=== PATIENT | female | born 1940 | race Caucasian/White ===

== ENCOUNTER 2016-04-15 08:00 | Outpatient (CLI) | payer MEDICARE, OTHER ==
[2016-04-15] VITALS (15 sets, daily range): BP systolic 120–173; BP diastolic 62–94
[~2016-04-15] VITALS: Ht 142.2 cm; Wt 54.4 kg
[~2016-04-15 08:00] MED LIST: ASCO10002 PO; ASCO100065 PO; CALC600T4 PO; CELE200C PO; CETI10CA PO; CETI10TA22 PO; CHOL100013 PO; CLON0.5T20 PO; CLON0.5T3 PO; CYCL10TA2 PO; ELDERBERRY PO; FENT1PAT21 TD; FLUT1DIS5 IH; GLUC1CAP14 PO; GREE1CAP PO; HERBAL ALOE; HYDR16TA PO; LECI518C PO; LUBI24CA5 PO; LYSI500T3 PO; MOME17SP NS; MULT1TAB52 PO; MULT9LIQ10 PO; NIAC50TA PO; OLAN2.5T5 PO; OLAN5TAB9 PO; OMEP40CA5 PO; ONDA4TAB7 PO; OXYC1TAB9 PO; OXYC30TA64 PO; POTA99TA PO; PRED2.5T PO; RALO60TA PO; RED600CA2 PO; ROFL500T PO; SENN8.6T60 PO; TIOT18CA IH; VALS1TAB6 PO; VITA150T PO; VITA400C36 PO; VITA80003 PO; [UNRECOGNIZED DRUG - CODE] MC; [UNRECOGNIZED DRUG - OTHER]
[2016-04-15 08:47] LABS: BASO # 0.1 x10^3/uL (0.0-0.2); BASO % 1 % (0-3); EOS % 0 % (0-3); HEMATOCRIT 34.1 % (36.0-47.0); HEMOGLOBIN 11.2 g/dL (12.0-15.5); LYMPH # 0.9 x10^3/uL (1.0-4.8); LYMPH % 8 % (24-48); MEAN CORPUSCULAR HEMOGLOBIN 25 pg (25-35); MEAN CORPUSCULAR HGB CONC 33 g/dL (31-37); MEAN CORPUSCULAR VOLUME 75 fL (79-100); MONO % 7 % (0-9); NEUT % 84 % (31-73); PLATELET COUNT 346 x10^3/uL (140-400); RED BLOOD COUNT 4.55 x10^6/uL (3.50-5.40); RED CELL DISTRIBUTION WIDTH 17.4 % (11.5-14.5); WHITE BLOOD COUNT 11.3 x10^3/uL (4.0-11.0)
[2016-04-15 08:59] LABS: INR 1.1 (0.8-1.1); PROTHROMBIN TIME PATIENT 13.7 SEC (11.7-14.0)
[2016-04-15] MEDS ORDERED: IPRATRPIUM/ALBUTEROL 0.5/2.5MG 3 ML NEBU. NEB ONE (09:15)
--- NOTE | 2016-04-15 09:41 | RAD ---
Portable AP view CXR: 0918 Clinical indications: Continuous cough. Comparison: November 21, 2014. Findings: Chronic bronchitis is seen which is stable. A granuloma of the right upper lobe is seen which is stable. No acute lung infiltrate or pleural effusion or pulmonary edema or lung mass or pneumothorax is seen. The heart size, pulmonary vasculature, mediastinum and both flip are unremarkable. T Impression: No acute radiographic abnormality is seen.
[2016-04-15] MEDS ORDERED: LIDOCAINE 1% / SOD BICARB 8.4% 20 ML VIAL. IJ ONE ×2 (09:57→11:30)
[2016-04-15] MEDS ORDERED: MIDAZOLAM HCL/PF 5 MG/5 ML VIAL ONE (10:24)
[2016-04-15] MEDS ORDERED: FENTANYL PF 250 MCG/5 ML VIAL. ONE (10:24)
[2016-04-15] MEDS ORDERED: MIDAZOLAM HCL/PF 5 MG/5 ML VIAL IV ONE (11:30)
[2016-04-15] MEDS ORDERED: FENTANYL PF 250 MCG/5 ML VIAL. IV ONE (11:30)
--- NOTE | 2016-04-15 12:30 | PDOC ---
MODERATE SEDATION ASSESSMENT RISKS/ALTERNATIVES Risks/Alternatives Risks and alternatives of this type of sedation and procedure discussed with: RISK/ALTERNATIVES: Patient H & P ON CHART H & P H & P on chart and reviewed for co-morbid conditions and appropriate labs. H&P ON CHART: Yes STATUS PREG STATUS ASSESSED: Yes MEDS/ALLERGIES REVIEWED Meds/Allergies Reviewed Medications and Allergies including time and route of recently administered narcotics and sedatives. MEDS/ALLERGIES REVIEWED: Yes ASA RATING ASA RATING: II AIRWAY ASSESSMENT Airway Assessment Airway patency, oral function limitations, presence of caps, crowns, dentures, partials, and ability to extend neck assessed. AIRWAY ASSESSMENT: Yes MALLAMPATI SCORE MALLAMPATI SCORE: II PRE-SEDATION ASSESSMENT PRE-SEDATION ASSESSMENT: Yes WILFRIDO MELARA MD Apr 15, 2016 12:30
--- NOTE | 2016-04-15 12:30 | PDOC ---
BRIEF OPERATIVE NOTE Pre-Op Diagnosis Bilateral sacral insufficiency fractures Post-Op Diagnosis same Procedure Performed Bilateral sacral vertebroplasty Surgeon Ruby Anesthesia Type: Conscious Sedation Findings Bilateral sacral vertebroplasty Complications No immediate WILFRIDO MELARA MD Apr 15, 2016 12:30
--- NOTE | 2016-04-15 12:31 | PDOC1 ---
History and Physical Date of Procedure Date of Admission History of Present Illness Reason for Visit Painful debilitating bilateral sacral insufficiency fractures Past Medical History Past Medical History see nursing pre-op assessment Current Medications Current Medications Current Medications Albuterol/ Ipratropium (Duoneb) 3 ml 1X ONCE NEB Last administered on 09:15; Start 04/15/16 at 09:15; Stop 04/15/16 at 09:16; Status DC Lidocaine/Sodium Bicarbonate 20 ml 20 ml STK-MED ONCE IJ ; Start 04/15/16 at 09: 57; Stop 04/15/16 at 09:58; Status DC Levofloxacin/ Dextrose (LEVAQUIN 500mg PREMIX) 100 ml @ As Directed STK-MED ONCE IV ; Start 04/15/16 at 10:24; Stop 04/15/16 at 10:25; Status DC Midazolam HCl (Versed) 5 mg STK-MED ONCE .ROUTE ; Start 04/15/16 at 10:24; Stop 04/15/16 at 10:25; Status DC Fentanyl Citrate (Fentanyl 5ml Vial) 250 mcg STK-MED ONCE .ROUTE ; Start at 10:24; Stop 04/15/16 at 10:25; Status DC Lidocaine/Sodium Bicarbonate (Buffered Lidocaine 1%) 20 ml 1X ONCE IJ Last administered on 04/15/16 11:24; Start 04/15/16 at 11:30; Stop 04/15/16 at 11:31 ; Status DC Midazolam HCl (Versed) 2 mg 1X ONCE IV Last administered on 04/15/16 11:24; Start 04/15/16 at 11:30; Stop 04/15/16 at 11:31; Status DC Fentanyl Citrate 150 mcg 150 mcg 1X ONCE IV Last administered on 04/15/16 11: 24; Start 04/15/16 at 11:30; Stop 04/15/16 at 11:31; Status DC Levofloxacin/ Dextrose (LEVAQUIN 500mg PREMIX) 100 ml @ 100 mls/hr 1X ONCE IV Last administered on 04/15/16 11:25; Start 04/15/16 at 11:30; Stop 04/15/16 at 12:29 Active Scripts Active Reported Oxycontin (Oxycodone HCl) 30 Mg Tab.er.12h 30 Mg PO BID Multivitamins (Multivitamin) 1 Each Tablet 1 Tab PO DAILY FENTANYL 100mcg/hr (Fentanyl) 1 Each Patch.td72 1 Patch TD Q72H Zofran (Ondansetron Hcl) 4 Mg Tablet 1 Tab PO Q8HRS Daliresp (Roflumilast) 500 Mcg Tablet 1 Tab PO DAILY Amitiza (Lubiprostone) 24 Mcg Capsule 1 Cap PO BID Oxycodone-Acetaminophen 10-325 (Oxycodone Hcl/Acetaminophen) 1 Each Tablet 1 Tab PO Q4HRS Cyclobenzaprine Hcl 10 Mg Tablet 1 Tab PO QHS Nasonex (Mometasone Furoate) 17 Gm Coffey.pump 2 Sprays NS DAILY Spiriva (Tiotropium Prospect) 18 Mcg Cap.w.dev 1 Cap IH DAILY Advair 500-50 Diskus (Fluticasone/Salmeterol) 1 Each Disk.w.dev 1 Puff IH BID Clonazepam 0.5 Mg Tablet 1 Tab PO DAILY Olanzapine 2.5 Mg Tablet 5 Mg PO DAILY Lecithin 518 Mg Capsule 400 Mg PO DAILY [Herbal Aloe] DAILY Prednisone 2.5 Mg Tablet 5 Mg PO DAILY Red Yeast Rice 600 Mg Capsule 600 Mg PO Glucosamine 1,500 Complex Cp (Gluc Chung/Chondro Chung A/Vit C/Mn) 1 Each Capsule 1 Each PO Super B Complex (Vitamin B Complex & Vit C No.4) 150 Mg Tablet 150 Mg PO Green Tea (Green Tea [place]ova Extract) 1 Each Capsule 1 Each PO Vitamin A 8,000 Unit Capsule 8,000 Unit PO Vitamin C (Ascorbic Acid) 1,000 Mg Tablet 1,000 Mg PO Vitamin E (Vitamin E Mixed) 400 Unit Capsule 400 Unit PO Vitamin D (Cholecalciferol (Vitamin D3)) 1,000 Unit Capsule 1,000 Unit PO Calcium (Calcium Carbonate) 600 Mg Tablet 1,200 Mg PO Lysine 500 Mg Tablet 500 Mg PO Vegetable Laxative (Sennosides) 8.6 Mg Tablet 8.6 Mg PO Celebrex (Celecoxib) 200 Mg Capsule 200 Mg PO DAILY Evista (Raloxifene Hcl) 60 Mg Tablet 60 Mg PO DAILY Diovan Hct 160-12.5 Mg Tab (Valsartan/Hydrochlorothiazide) 1 Each Tablet 1 Each PO Allergies Allergies: Coded Allergies: codeine (Verified Allergy, Intermediate, elevated hr, 05/29/15) penicillin (Verified Allergy, Intermediate, hives, 05/29/15) Physical Exam Vital Signs Vital Signs Date Time Temp Pulse Resp B/P Pulse Ox O2 Delivery O2 Flow Rate FiO2 04/15/16 11:24 14 95 Nasal Cannula 2.0 04/15/16 11:20 95 04/15/16 08:57 97.7 146/78 97.7 Assessment Assessment Bilateral sacral insufficiency fractures Problems: Plan Plan Bilateral sacroplasty WILFRIDO MELARA MD Apr 15, 2016 12:31
--- NOTE | 2016-04-15 17:48 | RAD ---
Procedure: CT-guided bilateral sacral vertebroplasty Clinical Indication: 75-year-old with debilitating bilateral sacral insufficiency fractures Sedation: Conscious sedation was administered for 38 minutes. The patient was monitored by a qualified independent observer throughout the time of sedation. Please refer to the medical record for exact doses of medications utilized to achieve moderate sedation. Antibiotics: Antibiotic was administered intravenously within 1 hour of the procedure start time. Sterility: The procedure was performed in its entirety using appropriate elements of sterile technique. Consent: The procedure was explained in its entirety to the patient or the patients designated lead generation representative by a member of the treatment team, including a discussion of the risks, benefits and commonly accepted alternatives to the procedure, as well as the expected consequences of no therapy whatsoever. Discussion of the risks included, but was not limited to, those that are most frequent and those that are rare but possibly severe or life-threatening, as well as the possibility of unforeseen complications. Technique and Findings: Following informed consent, the patient was prepped and draped in usual sterile fashion. Preliminary CT scan of the area of interest was performed. 1% lidocaine was used to achieve local anesthesia in 2 locations overlying the sacrum. Under periodic CT surveillance, an 11-gauge needle guide were advanced into both sacral alae, and polymethylmethacrylate was instilled throughout the interstices of these bones. Both needles were then removed and hemostasis was achieved with manual compression. Complications: No immediate Impression: 1. CT-guided bilateral sacral vertebroplasty as described PQRS Compliance Statement: One or more of the following individualized dose reduction techniques were utilized for this examination: 1. Automated exposure control 2. Adjustment of the mA and/or kV according to patient size 3. Use of iterative reconstruction technique
== END 2016-04-15 14:10 | disposition home or self-care (01) ==
LOC: INTRAD 08:00
PROVIDERS: ATTEND Family Medicine
DX: M84.48XA Pathological fracture, other site, initial encounter for fracture (principal); J42 Unspecified chronic bronchitis; E03.9 Hypothyroidism, unspecified; I10 Essential (primary) hypertension; J44.9 Chronic obstructive pulmonary disease, unspecified; J45.909 Unspecified asthma, uncomplicated; E66.9 Obesity, unspecified; M19.90 Unspecified osteoarthritis, unspecified site; F17.200 Nicotine dependence, unspecified, uncomplicated
CPT/HCPCS: 22511; 36415; 71010; 85027; 85610; 94640; C1758; C1892; J1956; J2250; J3010; J7620

== ENCOUNTER 2016-04-20 00:18 | Emergency (ER) | payer MEDICARE, OTHER ==
[~2016-04-20] VITALS: Ht 142.2 cm; Wt 54.4 kg
[2016-04-20] MEDS ORDERED: ONDANSETRON ODT 4 MG TAB.RAPDIS PO ONE (01:15)
[2016-04-20] MEDS ORDERED: HYDROMORPHONE 2 MG/ML VIAL. IM ONE ×2 (01:15→03:00)
[2016-04-20 02:45] VITALS: BP 143/68
--- NOTE | 2016-04-20 02:59 | PHYS DOC ---
Past Medical History Past Medical History: Asthma, GERD, Hypertension, Other Additional Past Medical Histor: CHRONIC BACK PAIN, Past Surgical History: Cholecystectomy, Other Additional Past Surgical Histo: BREAST SURGERY,HERNIA SURGERY,BACK SURGERY, FOOT SURGERY Alcohol Use: None Drug Use: None Adult General Chief Complaint Chief Complaint: BACK PAIN - NO INJURY HPI HPI Patient is a 75 year old female who presents here today complaining of lower back pain. Patient reports that she had kyphoplasty on Monday secondary to a sacral bone fracture. Patient reports last week she fell down and hurt her back and has had sacral/coccyx pain since. Patient reports that she has had chronic pain for a long time and she is on oxycodone as well as OxyContin to help her pain. Patient reports that she was doing well since the surgery and she was walking around. Patient thinks that she might have overdone it today and walked around too much. Patient reports that she went to sleep and then wasn't able to get up out of bed and walk around secondary to severe pain and spasms. Patient denies any other symptomatology. Patient has any fevers shaking chills nausea vomiting diarrhea. Patient denies any loss of bowel or bladder function. Patient denies any weakness to her upper or lower extremities. Patient denies any paresthesias to her. No region. Patient is requesting that we Sr. with pain here. Patient is requesting that she not be admitted to the hospital and wants us to assist with control of her pain so that she can resume with her outpatient pain regimen. Patient is requesting no fentanyl secondary to it really killing her in the past". Patient's physical exam was significant for tenderness to palpation to her lower back and her coccyx and sacral region. Patient has severe pain with rolling over in bed. Patient's motor exam is 5 out of 5 upper and lower extremity. Patient's sensation in the perineal area as well as to her lower 70s and oriented. A/P this is a 75-year-old female who presents to the ER today secondary to an acute exacerbation of her chronic pain. Patient was given Dilaudid 2 mg IM with significant improvement in her discomfort. After the IM shot patient was able to ambulate. Patient still appeared to be in some discomfort. I discussed with the patient I think she would benefit from being admitted to the hospital to assist her with her pain. The patient and her are both declining admission at this time. They prefer that we help control her pain here in the ER and they are requesting that she be discharged home. I discussed with the family that I would try and ambulate her first before we discharge her to home. The nurse did get the patient up and she has been able to ambulate in the ER with a moderate amount of discomfort. I discussed this with the patient and she feel that she is comfortable enough and stable enough to be discharged home to that she can resume her usual pain meds. Patient is hoping that if we can control her pain that her home remedies will continue to work as they have been for. I discussed with the patient that I will go ahead and discharge her and encouraged her to return to the ER if she has worsening pain or she is not able to tolerate the discomfort that she has or she is unable to actively. I will go ahead and give the patient another 2 mg of IM Dilaudid before she is discharged to assist her until she gets home. reports that she has 13 since that she will have to go up and he can manage helping her go up as long as she can walk a little bit. Review of Systems Review of Systems Constitutional: Denies fever or chills [] Eyes: Denies change in visual acuity, redness, or eye pain [] All other review systems are negative except as documented in history of present illness portion. Current Medications Current Medications Current Medications Medications (Trade) Dose Ordered Sig/Sandy Start Time Stop Time Status Last Admin Dose Admin Hydromorphone HCl (Dilaudid) 2 mg 1X ONCE 04/20/16 03:00 04/20/16 03:01 04/20/16 02:50 2 MG Ondansetron HCl (Zofran Odt) 4 mg 1X ONCE 04/20/16 01:15 04/20/16 01:16 DC 04/20/16 01:03 4 MG Allergies Allergies Allergies Coded Allergies Type Severity Reaction Last Updated Verified codeine Allergy Intermediate elevated hr 05/29/15 Yes penicillin Allergy Intermediate hives 05/29/15 Yes Physical Exam Physical Exam Constitutional: Well developed, well nourished, no acute distress, non-toxic appearance. [] HENT: Normocephalic, atraumatic, bilateral external ears normal, oropharynx moist, no oral exudates, nose normal. [] Eyes: PERRLA, EOMI, conjunctiva normal, no discharge. [] Neck: Normal range of motion, no tenderness, supple, no stridor. [] Cardiovascular:Heart rate regular rhythm, no murmur [] Lungs & Thorax: Bilateral breath sounds clear to auscultation [] Abdomen: Bowel sounds normal, soft, no tenderness, no masses, no pulsatile masses. [] Skin: Warm, dry, no erythema, no rash. [] Back: No tenderness, no CVA tenderness. [] Extremities: No tenderness, no cyanosis, no clubbing, ROM intact, no edema. [] Neurologic: Alert and oriented X 3, normal motor function, normal sensory function, no focal deficits noted. [] Psychologic: Affect normal, judgement normal, mood normal. [] Positive tenderness to palpation back. Please see above for exam of her back. Current Patient Data Vital Signs Vital Signs Date Time Temp Pulse Resp B/P Pulse Ox O2 Delivery O2 Flow Rate FiO2 04/20/16 00:25 98.0 85 22 169/77 93 Room Air 98.0 EKG EKG [] Radiology/Procedures Radiology/Procedures [] Course & Med Decision Making Course & Med Decision Making Pertinent Labs and Imaging studies reviewed. (See chart for details) [] Chronic lower back pain. This is a 75-year-old female who presents to the ER today with acute exacerbation of her chronic back pain. Patient recently had kyphoplasty done secondary to fracture to her coccyx region. Patient has been given appropriate and adequate analgesia in the ER and is requesting to be discharged home and try to manage with her outpatient regimen. Patient is neurovascularly intact. Dragon Disclaimer Dragon Disclaimer This electronic medical record was generated, in whole or in part, using a voice recognition dictation system. Departure Departure Impression: Primary Impression: Chronic back pain Additional Impression: Acute low back pain Disposition: 01 HOME, SELF-CARE Condition: IMPROVED Referrals: LOBO SMITH MD (PCP) Patient Instructions: Chronic Back Pain, Low Back Sprain with [facility] Additional Instructions: Please follow-up with your doctor in the morning to help you with her chronic pain. Please return to the ER if her pain worsens or if he have any further problems or concerns. Problem Qualifiers CARMELITA DUDLEY MD Apr 20, 2016 02:59
== END 2016-04-20 03:05 | disposition home or self-care (01) ==
LOC: ER 00:18
DX: G89.29 Other chronic pain (principal); M54.5 Low back pain; J45.909 Unspecified asthma, uncomplicated; I10 Essential (primary) hypertension; Z88.0 Allergy status to penicillin; Z88.5 Allergy status to narcotic agent
CPT/HCPCS: 96372; 99284; J1170; Q0162

== ENCOUNTER 2016-09-20 17:18 | Inpatient (IN) | payer MEDICARE, OTHER ==
[~2016-09-20] VITALS: Ht 142.2 cm; Wt 48.5 kg
[~2016-09-20 17:18] MED LIST changes: -GLUC1CAP14 PO; +GLUCOSAMINE 1,1 EACH PO; -LUBI24CA5 PO; +LUBI24CA7 PO; -NIAC50TA PO; +NIAC50TA3 PO; -ROFL500T PO; +ROFL500T7 PO; -SENN8.6T60 PO; +SENN8.6T61 PO; -VALS1TAB6 PO; +VALS1TAB8 PO
[2016-09-20 19:45] VITALS: BP 186/92
[2016-09-20] MEDS ORDERED: IPRA4AER IH (20:20)
[2016-09-20] MEDS ORDERED: CETI10TA16 PO (20:20)
[2016-09-20] MEDS ORDERED: AZEL137S3 NS (20:20)
[2016-09-20] MEDS ORDERED: ALBU2.5V5 NEB (20:20)
[2016-09-20] MEDS ORDERED: CELE200C PO (20:20)
[2016-09-20] MEDS ORDERED: ALOE25CA PO (20:20)
[2016-09-20] MEDS ORDERED: POTASSIUM BICARB PO (20:20)
[2016-09-20] MEDS ORDERED: GLUC1TAB33 PO (20:20)
[2016-09-20] MEDS ORDERED: OMEP40CA5 PO (20:20)
[2016-09-20] MEDS ORDERED: ONDANSETRON PF 4 MG/2 ML VIAL. IV PRN (21:15)
[2016-09-20] MEDS ORDERED: ACETAMINOPHEN 325 MG TABLET. PO PRN (21:15)
[2016-09-20] MEDS: IV NORMAL SALINE 1000ML BAG 1,000 ML IV SCH (22:00)
[2016-09-20] MEDS ORDERED: levOFLOXacin PER PHARMACY. MC PRN (22:15)
[2016-09-20] MEDS: oxyCODONE/APAP 10/325 1 TAB TABLET PO SCH (22:16)
[2016-09-20 23:03] VITALS: BP 175/90
[2016-09-21] MEDS ORDERED: oxyCODONE/APAP 10/325 1 TAB TABLET PO SCH
[2016-09-21] MEDS: oxyCODONE/APAP 10/325 1 TAB TABLET PO SCH ×5 (03:36→21:22)
[2016-09-21 03:42] VITALS: BP 154/75
[2016-09-21 05:23] LABS: BILIRUBIN,URINE NEGATIVE (NEG); GLUCOSE,URINE NEGATIVE (NEG); NITRITE,URINE NEGATIVE (NEG); PH,URINE 7.5; PROTEIN,URINE NEGATIVE (NEG-TRACE); UROBILINOGEN,URINE 0.2 mg/dL (0.2 mg/dL)
[2016-09-21 05:29] LABS: BACTERIA,URINE 0 /HPF (0-FEW); RBC,URINE 0 /HPF (0-2); SQUAMOUS EPITHELIAL CELL,UR FEW /LPF; WBC,URINE 0 /HPF (0-4)
[2016-09-21 05:47] LABS: ALBUMIN 2.9 g/dL (3.4-5.0); CALCIUM 8.9 mg/dL (8.5-10.1); CREATININE 0.7 mg/dL (0.6-1.0); TOTAL BILIRUBIN 0.4 mg/dL (0.2-1.0); TOTAL PROTEIN 5.9 g/dL (6.4-8.2)
[2016-09-21 05:57] LABS: POTASSIUM 2.6 mmol/L (3.5-5.1)
[2016-09-21 05:59] LABS: BASO % 1 % (0-3); EOS % 1 % (0-3); HEMATOCRIT 30.8 % (36.0-47.0); HEMOGLOBIN 10.2 g/dL (12.0-15.5); LYMPH # 1.4 x10^3/uL (1.0-4.8); LYMPH % 14 % (24-48); MEAN CORPUSCULAR HEMOGLOBIN 26 pg (25-35); MEAN CORPUSCULAR HGB CONC 33 g/dL (31-37); MEAN CORPUSCULAR VOLUME 77 fL (79-100); MONO % 8 % (0-9); NEUT % 77 % (31-73); PLATELET COUNT 289 x10^3/uL (140-400); RED BLOOD COUNT 4.02 x10^6/uL (3.50-5.40); WHITE BLOOD COUNT 10.1 x10^3/uL (4.0-11.0)
[2016-09-21] MEDS: oxyCODONE ER 15 MG TAB.ER.12H PO SCH ×2 (06:12→17:48)
[2016-09-21] MEDS: POTASSIUM CHLORIDE 10MEQ 100 ML IV SCH ×4 (06:38→10:37)
[2016-09-21 07:00] VITALS: BP 156/75
[2016-09-21] MEDS: IV NORMAL SALINE 1000ML BAG 1,000 ML IV SCH ×2 (08:07→22:52)
[2016-09-21] MEDS ORDERED: POTASSIUM CHLORIDE 10MEQ 100 ML IV SCH (09:00)
[2016-09-21] MEDS ORDERED: NON FORMULARY ITEM (Tiotropium Bromide (Spiriva) 1 CAP) IH SCH (09:00)
[2016-09-21] MEDS: IPRATRPIUM/ALBUTEROL 0.5/2.5MG 3 ML NEBU. NEB SCH ×4 (09:00→19:23)
[2016-09-21] MEDS ORDERED: oxyCODONE ER 15 MG TAB.ER.12H PO SCH (09:00)
[2016-09-21] MEDS ORDERED: NON FORMULARY ITEM (Fluticasone/Salmeterol (Advair 500-50 Diskus) 1 PUFF) IH SCH (09:00)
[2016-09-21] MEDS: BUDESONIDE 0.5 MG/2 ML NEBU. NEB SCH ×2 (09:00→19:24)
[2016-09-21] MEDS: CETIRIZINE HCL 10 MG TABLET. PO SCH (09:51)
[2016-09-21] MEDS: fentaNYL 100MCG/HR PATCH 1 PATCH PATCH TD SCH (09:51)
[2016-09-21] MEDS: SENNOSIDES 8.6 MG TABLET PO SCH (09:52)
[2016-09-21] MEDS: CYCLOBENZAPRINE 10 MG TABLET. PO SCH ×3 (09:52→21:22)
[2016-09-21] MEDS: PANTOPRAZOLE 40 MG TABLET.DR. PO SCH (09:52)
--- NOTE | 2016-09-21 09:52 | RAD ---
Indication: Pneumonia. Time of exam 0859 hours. Correlation is made with prior chest from 04/15/2016. The heart size is stable. There is a granuloma right upper lobe which is stable when compared with prior study. No infiltrates are detected. No effusion or pneumothorax is seen. Impression: Stable chest. No acute cardiopulmonary process is detected.
[2016-09-21] MEDS: clonazePAM 0.5 MG TABLET PO SCH (09:53)
[2016-09-21] MEDS: OLANZapine 2.5 MG TABLET PO SCH (09:53)
[2016-09-21] MEDS: ROFLUMILAST 500 MCG TABLET. PO SCH (09:53)
[2016-09-21] MEDS ORDERED: ALBUTEROL SULFATE 2.5 MG/3 ML NEBU. NEB PRN (10:00)
[2016-09-21 10:58] VITALS: BP 138/69
[2016-09-21] MEDS ORDERED: SODIUM CHLORIDE 3 % 500 ML IV ONE (12:00)
[2016-09-21] MEDS ORDERED: IPRATRPIUM/ALBUTEROL 0.5/2.5MG 3 ML NEBU. NEB SCH ×2 (12:00)
--- NOTE | 2016-09-21 12:14 | PDOC2 ---
CONSULT Date of Consult Date of Consult DATE: 09/21/16 TIME: 12:06 Reason for Consult Reason for Consult: LOW NA Referring Physician Referring Physician: PREETHI Identification/Chief Complaint Chief Complaint SOB AND WEAKNESS Problems: Source Source: Chart review, Patient History of Present Illness Reason for Visit: THIS IS A 75 YR OLD ADMITTED WITH SOB AND SOME WEAKNESS. SHE HAS BEEN FEELING WOBBLY AND UNSTEADY. NO HEADACHES OR OTHER SYMPTOMS GIVEN. VISION IS OK. NA IS 122. OLD RECORDS SHOWED NA OF 131 DURING LAST HOSPITAL VISIT HERE. DOES NOT APPEAR TO HAVE HAD THIS WORKED UP. SHE HAS BEEN ON DIOVAN/HCTZ. NO EXCESSIVE THIRST OR WATER INTAKE. NO POLYURIA. SHE IS NOT ON ANY DIURETICS. SHE HAS A HX OF ASTHMA WITH EXACERBATIONS Past Medical History Cardiovascular: HTN Pulmonary: COPD GI: Diverticulosis Heme/Onc: Anemia NOS Hepatobiliary: Cholelithiasis Psych: No pertinent hx Musculoskeletal: Weakness Endocrine: Other Past Surgical History Past Surgical History: No pertinent history Family History Family History: No Significant Social History ALCOHOL: rare Drugs: None Current Medications Current Medications Current Medications Oxycodone/ Acetaminophen (Percocet 10/325) 1 tab Q4HRS PO ; Start 09/21/16 at 00 :00; Stop 09/21/16 at 00:00; Status DC Oxycodone HCl (OxyCONTIN) 30 mg Q12HR PO ; Start 09/21/16 at 09:00; Stop at 09:00; Status DC Sodium Chloride 1,000 ml @ 60 mls/hr [id number] IV Last administered on t 08:07; Start 09/20/16 at 21:10 Ondansetron HCl (Zofran) 4 mg PRN Q6HRS PRN IV NAUSEA/VOMITING; Start 09/20/16 at 21:15 Acetaminophen (Tylenol) 650 mg PRN Q6HRS PRN PO FEVER; Start 09/20/16 at 21:15 Ceftriaxone Sodium 1 gm/ Sodium Chloride 50 ml @ 100 mls/hr Q24H IV ; Start at 21:15; Status UNV Oxycodone HCl (OxyCONTIN) 30 mg [id number] PO Last administered on 09/21/16t 06:12; Start 09/21/16 at 06:30 Oxycodone/ Acetaminophen (Percocet 10/325) 1 tab Q4HRS PO Last administered on 09/21/16 11:57; Start 09/20/16 at 22:30 Levofloxacin/ Dextrose (Levaquin Per Pharmacy) 1 each PRN DAILY PRN MC SEE COMMENTS; Start 09/20/16 at 22:15 Levofloxacin/ Dextrose 100 ml @ 100 mls/hr 1X ONCE IV Last administered on 00:24; Start 09/20/16 at 23:00; Stop 09/20/16 at 23:59; Status DC Levofloxacin/ Dextrose 50 ml @ 50 mls/hr Q24H IV ; Start 09/21/16 at 23:00 Potassium Chloride 100 ml @ 100 mls/hr Q1H IV Last administered on 09/21/16 10:37; Start 09/21/16 at 07:00; Stop 09/21/16 at 10:59; Status DC Potassium Chloride 100 ml @ 100 mls/hr Q1H IV ; Start 09/21/16 at 09:00; Stop 09/21/16 at 12:59; Status Cancel Cetirizine HCl (ZyrTEC) 10 mg DAILY PO Last administered on 09/21/16 09:51; Start 09/21/16 at 09:30 Clonazepam (KlonoPIN) 0.5 mg DAILY PO Last administered on 09/21/16 09:53; Start 09/21/16 at 09:30 Cyclobenzaprine HCl (Flexeril) 10 mg TID PO Last administered on 09/21/16 09: 52; Start 09/21/16 at 09:30 Fentanyl (Duragesic 100mcg/Hr Patch) 1 patch Q72H TD Last administered on 09:51; Start 09/21/16 at 09:30 Olanzapine (ZyPREXA) 5 mg DAILY PO Last administered on 09/21/16 09:53; Start 09/21/16 at 09:30 Roflumilast (Daliresp) 500 mcg DAILY PO Last administered on 09/21/16 09:53; Start 09/21/16 at 09:30 Sennosides (Senna) 8.6 mg DAILY PO Last administered on 09/21/16 09:52; Start 09/21/16 at 09:30 Non-Formulary Medication 1 puff BID IH ; Start 09/21/16 at 09:00; Status UNV Pantoprazole Sodium (Protonix) 40 mg DAILYAC PO Last administered on 09/21/16 09:52; Start 09/21/16 at 09:30 Non-Formulary Medication 1 cap DAILY IH ; Start 09/21/16 at 09:00; Status UNV Albuterol/ Ipratropium (Duoneb) 3 ml RTQID NEB Last administered on 09/21/16 11:17; Start 09/21/16 at 09:30 Albuterol/ Ipratropium (Duoneb) 3 ml RTQID NEB ; Start 09/21/16 at 12:00; Status UNV Budesonide (Pulmicort) 0.5 mg RTBID NEB Last administered on 09/21/16 09:00; Start 09/21/16 at 09:30 Albuterol/ Ipratropium (Duoneb) 3 ml RTQID NEB ; Start 09/21/16 at 12:00; Status Cancel Albuterol Sulfate (Ventolin Neb Soln) 2.5 mg PRN Q2HR PRN NEB SHORTNESS OF BREATH; Start 09/21/16 at 10:00 Guaifenesin (Mucinex) 600 mg BID PO Last administered on 09/21/16 11:56; Start 09/21/16 at 11:00 Sodium Chloride 500 ml @ 30 mls/hr 1X ONCE IV ; Start 09/21/16 at 12:00; Stop 09/22/16 at 04:39 Active Scripts Active Reported Albuterol Sulfate Neb Soln (Albuterol Sulfate) 2.5 Mg/3 Ml Vial.neb 2.5 Mg NEB Q6HRS Combivent Respimat Inhal (Ipratropium/Albuterol Sulfate) 4 Gm Aer.w.adap 2 Inh IH QID Glucosamine Chondroitin Tab (Gluc Chung/Chondro Chung A/Vit C/Mn) 1 Each Tablet 1 Each PO Aloe Vera 25 Mg Capsule 25 Mg PO BID [potassium bicarb] 600 Intlu PO Azelastine Hcl 137 Mcg/0.137 Ml Royal.pump 2 Royal NS BID Cetirizine Hcl 10 Mg Tablet 1 Tab PO DAILY Omeprazole 40 Mg Capsule.dr 1 Cap PO DAILY Celebrex (Celecoxib) 200 Mg Capsule 200 Mg PO BID 30 Days Oxycontin (Oxycodone HCl) 30 Mg Tab.er.12h 30 Mg PO BID Multivitamins (Multivitamin) 1 Each Tablet 1 Tab PO DAILY FENTANYL 100mcg/hr (Fentanyl) 1 Each Patch.td72 1 Patch TD Q72H Daliresp (Roflumilast) 500 Mcg Tablet 1 Tab PO DAILY Amitiza (Lubiprostone) 24 Mcg Capsule 1 Cap PO BID Oxycodone-Acetaminophen 10-325 (Oxycodone Hcl/Acetaminophen) 1 Each Tablet 1 Tab PO Q4HRS Cyclobenzaprine Hcl 10 Mg Tablet 1 Tab PO TID Nasonex (Mometasone Furoate) 17 Gm Royal.pump 2 Sprays NS DAILY Spiriva (Tiotropium [place]) 18 Mcg Cap.w.dev 1 Cap IH DAILY Advair 500-50 Diskus (Fluticasone/Salmeterol) 1 Each Disk.w.dev 1 Puff IH BID Clonazepam 0.5 Mg Tablet 1 Tab PO DAILY Olanzapine 2.5 Mg Tablet 5 Mg PO DAILY Prednisone 2.5 Mg Tablet 5 Mg PO DAILY Super B Complex (Vitamin B Complex & Vit C No.4) 150 Mg Tablet 150 Mg PO Green Tea (Green Tea [place] Extract) 1 Each Capsule 1 Each PO BID Vitamin A 8,000 Unit Capsule 8,000 Unit PO Vitamin C (Ascorbic Acid) 1,000 Mg Tablet 1,000 Mg PO Vitamin E (Vitamin E Mixed) 400 Unit Capsule 400 Unit PO Vitamin D (Cholecalciferol (Vitamin D3)) 1,000 Unit Capsule 1,000 Unit PO Calcium (Calcium Carbonate) 600 Mg Tablet 1,200 Mg PO Vegetable Laxative (Sennosides) 8.6 Mg Tablet 8.6 Mg PO Evista (Raloxifene Hcl) 60 Mg Tablet 60 Mg PO DAILY Diovan Hct 160-12.5 Mg Tab (Valsartan/Hydrochlorothiazide) 1 Each Tablet 1 Each PO Allergies Allergies: Coded Allergies: penicillin (Verified Allergy, Severe, hives, 09/20/16) anaphylactic codeine (Verified Allergy, Intermediate, elevated hr, 05/29/15) ROS General: YES: Fatigue, Malaise, Appetite PSYCHOLOGICAL ROS: YES: Anxiety Eyes: Yes Decreased vision HEENT: YES: Heacaches Respiratory: YES: Cough, Shortness of breath Gastrointestinal: Yes Constipation Genitourinary: YES Incontinence Musculoskeletal: Yes Muscular Weakness Neurological: Yes Weakness Physical Exam General: Alert, Oriented X3, Cooperative, No acute distress HEENT: Atraumatic, PERRLA Lungs: Clear to auscultation Heart: Regular rate, Normal S1, Normal S2 Abdomen: Normal bowel sounds, No tenderness Extremities: No clubbing Neuro: Normal speech, Cranial nerves 3-12 NL Psych/Mental Status: Mental status NL, Mood NL MUSCULOSKELETAL: No deformity, No swelling Vitals VITALS Vital Signs Date Time Temp Pulse Resp B/P (MAP) Pulse Ox O2 Delivery O2 Flow Rate FiO2 09/21/16 11:57 18 Room Air 09/21/16 11:17 98 09/21/16 10:58 98.0 87 138/69 (92) 98.0 Labs Labs Laboratory Tests Test 09/21/16 00:03 09/21/16 00:20 09/21/16 03:00 Magnesium Level 1.8 mg/dL (1.8-2.4) Urine Collection Type Unknown Urine Color Yellow Urine Clarity Clear Urine pH 7.5 Urine Specific [place] <=1.005 Urine Protein Negative mg/dL (NEG-TRACE) Urine Glucose (UA) Negative mg/dL (NEG) Urine Ketones (Stick) Negative mg/dL (NEG) Urine Blood Negative (NEG) Urine Nitrite Negative (NEG) Urine Bilirubin Negative (NEG) Urine Urobilinogen Dipstick 0.2 mg/dL (0.2 mg/dL) Urine Leukocyte Esterase Negative (NEG) Urine RBC 0 /HPF (0-2) Urine WBC 0 /HPF (0-4) Urine Squamous Epithelial Cells Few /LPF Urine Transitional Epithelial Cells Occ /LPF Urine Bacteria 0 /HPF (0-FEW) White Blood Count 10.1 x10^3/uL (4.0-11.0) Red Blood Count 4.02 x10^6/uL (3.50-5.40) Hemoglobin 10.2 g/dL (12.0-15.5) Hematocrit 30.8 % (36.0-47.0) Mean Corpuscular Volume 77 fL (79-100) Mean Corpuscular Hemoglobin 26 pg (25-35) Mean Corpuscular Hemoglobin Concent 33 g/dL (31-37) Red Cell Distribution Width 16.0 % (11.5-14.5) Platelet Count 289 x10^3/uL (140-400) Neutrophils (%) (Auto) 77 % (31-73) Lymphocytes (%) (Auto) 14 % (24-48) Monocytes (%) (Auto) 8 % (0-9) Eosinophils (%) (Auto) 1 % (0-3) Basophils (%) (Auto) 1 % (0-3) Neutrophils # (Auto) 7.7 x10^3uL (1.8-7.7) Lymphocytes # (Auto) 1.4 x10^3/uL (1.0-4.8) Monocytes # (Auto) 0.8 x10^3/uL (0.0-1.1) Eosinophils # (Auto) 0.1 x10^3/uL (0.0-0.7) Basophils # (Auto) 0.0 x10^3/uL (0.0-0.2) Sodium Level 122 mmol/L (136-145) Potassium Level 2.6 mmol/L (3.5-5.1) Chloride Level 86 mmol/L (98-107) Carbon Dioxide Level 26 mmol/L (21-32) Anion Gap 10 (6-14) Blood Urea Nitrogen 12 mg/dL (7-20) Creatinine 0.7 mg/dL (0.6-1.0) Estimated GFR (Cockcroft-Gault) 82.0 BUN/Creatinine Ratio 17 (6-20) Glucose Level 102 mg/dL (70-99) Calcium Level 8.9 mg/dL (8.5-10.1) Total Bilirubin 0.4 mg/dL (0.2-1.0) Aspartate Amino Transf (AST/SGOT) 21 U/L (15-37) Alanine Aminotransferase (ALT/SGPT) 21 U/L (14-59) Alkaline Phosphatase 73 U/L (46-116) FG-Own-O-Type Natriuretic Peptide 1312 pg/mL (0-124) Total Protein 5.9 g/dL (6.4-8.2) Albumin 2.9 g/dL (3.4-5.0) Albumin/Globulin Ratio 1.0 (1.0-1.7) Laboratory Tests Test 09/21/16 00:03 09/21/16 00:20 09/21/16 03:00 Magnesium Level 1.8 mg/dL (1.8-2.4) Urine Collection Type Unknown Urine Color Yellow Urine Clarity Clear Urine pH 7.5 Urine Specific [place] <=1.005 Urine Protein Negative mg/dL (NEG-TRACE) Urine Glucose (UA) Negative mg/dL (NEG) Urine Ketones (Stick) Negative mg/dL (NEG) Urine Blood Negative (NEG) Urine Nitrite Negative (NEG) Urine Bilirubin Negative (NEG) Urine Urobilinogen Dipstick 0.2 mg/dL (0.2 mg/dL) Urine Leukocyte Esterase Negative (NEG) Urine RBC 0 /HPF (0-2) Urine WBC 0 /HPF (0-4) Urine Squamous Epithelial Cells Few /LPF Urine Transitional Epithelial Cells Occ /LPF Urine Bacteria 0 /HPF (0-FEW) White Blood Count 10.1 x10^3/uL (4.0-11.0) Red Blood Count 4.02 x10^6/uL (3.50-5.40) Hemoglobin 10.2 g/dL (12.0-15.5) Hematocrit 30.8 % (36.0-47.0) Mean Corpuscular Volume 77 fL (79-100) Mean Corpuscular Hemoglobin 26 pg (25-35) Mean Corpuscular Hemoglobin Concent 33 g/dL (31-37) Red Cell Distribution Width 16.0 % (11.5-14.5) Platelet Count 289 x10^3/uL (140-400) Neutrophils (%) (Auto) 77 % (31-73) Lymphocytes (%) (Auto) 14 % (24-48) Monocytes (%) (Auto) 8 % (0-9) Eosinophils (%) (Auto) 1 % (0-3) Basophils (%) (Auto) 1 % (0-3) Neutrophils # (Auto) 7.7 x10^3uL (1.8-7.7) Lymphocytes # (Auto) 1.4 x10^3/uL (1.0-4.8) Monocytes # (Auto) 0.8 x10^3/uL (0.0-1.1) Eosinophils # (Auto) 0.1 x10^3/uL (0.0-0.7) Basophils # (Auto) 0.0 x10^3/uL (0.0-0.2) Sodium Level 122 mmol/L (136-145) Potassium Level 2.6 mmol/L (3.5-5.1) Chloride Level 86 mmol/L (98-107) Carbon Dioxide Level 26 mmol/L (21-32) Anion Gap 10 (6-14) Blood Urea Nitrogen 12 mg/dL (7-20) Creatinine 0.7 mg/dL (0.6-1.0) Estimated GFR (Cockcroft-Gault) 82.0 BUN/Creatinine Ratio 17 (6-20) Glucose Level 102 mg/dL (70-99) Calcium Level 8.9 mg/dL (8.5-10.1) Total Bilirubin 0.4 mg/dL (0.2-1.0) Aspartate Amino Transf (AST/SGOT) 21 U/L (15-37) Alanine Aminotransferase (ALT/SGPT) 21 U/L (14-59) Alkaline Phosphatase 73 U/L (46-116) DR-Yeh-N-Type Natriuretic Peptide 1312 pg/mL (0-124) Total Protein 5.9 g/dL (6.4-8.2) Albumin 2.9 g/dL (3.4-5.0) Albumin/Globulin Ratio 1.0 (1.0-1.7) Assessment/Plan Assessment/Plan IMP SEVERE HYPONATREMIA-SYMPTOMATIC ASTHMA WITH MILD ACUTE EXACERBATION PROB BRONCHITIS/URI PLAN STOP HER HCTZ URINE OSMO URINE LYTES CHECK TSH LOW FLOW 3% SALINE DECREASE ISOTONIC SALINE INFUSION WILL REPEAT NA LEVEL AFTER HYPERTONIC INFUSION UPDATED YESENIA RADFORD MD Sep 21, 2016 12:14
--- NOTE | 2016-09-21 12:36 | PDOC1 ---
History and Physical Date of Admission Date of Admission 09/21/16 Identification/Chief Complaint Chief Complaint cough, difficulty to urinate, weakness Problems: Source Source: Chart review, Patient History of Present Illness History of Present Illness 75yo F, with htn, copd, h/o hyponatremia, hypokalemia, was sent from [facility] for weakness. both pt and her PCP could not give me a good history. basically, Pt has been coughing for 1-2 weeks, but denies gets worse for her baseline with copd, denies fever, chills, but admits has some clear sputum. was treated with levaquin x5ds, no improvement. She also has difficulty to urinate, no incontinence. She feels weak, but said using salt for cooking, denies dehydration. she cannot tell me what is the etiology of previous hyponatremia and hypokalemia which is found in the clinic test and PCP didnot tell me that before transfer. Past Medical History Cardiovascular: HTN Pulmonary: COPD GI: Diverticulosis Heme/Onc: Anemia NOS Hepatobiliary: Cholelithiasis Psych: No pertinent hx Endocrine: Other Past Surgical History Past Surgical History: No pertinent history Family History Family History: Hypertension Social History Smoke: Quit ALCOHOL: occassional Drugs: None Current Medications Current Medications Current Medications Medications (Trade) Dose Ordered Sig/Sandy Start Time Stop Time Status Last Admin Dose Admin Acetaminophen (Tylenol) 650 mg PRN Q6HRS PRN 09/20/16 21:15 Albuterol Sulfate (Ventolin Neb Soln) 2.5 mg PRN Q2HR PRN 09/21/16 10:00 Albuterol/ Ipratropium (Duoneb) 3 ml RTQID 09/21/16 12:00 Cancel Budesonide (Pulmicort) 0.5 mg RTBID 09/21/16 09:30 09/21/16 09:00 0.5 MG Ceftriaxone Sodium 1 gm/ Sodium Chloride 50 ml @ 100 mls/hr Q24H 09/20/16 21:15 UNV Cetirizine HCl (ZyrTEC) 10 mg DAILY 09/21/16 09:30 09/21/16 09:51 10 MG Clonazepam (KlonoPIN) 0.5 mg DAILY 09/21/16 09:30 09/21/16 09:53 0.5 MG Cyclobenzaprine HCl (Flexeril) 10 mg TID 09/21/16 09:30 09/21/16 09:52 10 MG Fentanyl (Duragesic 100mcg/Hr Patch) 1 patch Q72H 09/21/16 09:30 09/21/16 09:51 1 PATCH Guaifenesin (Mucinex) 600 mg BID 09/21/16 11:00 09/21/16 11:56 600 MG Levofloxacin/ Dextrose 50 ml @ 50 mls/hr Q24H 09/21/16 23:00 Levofloxacin/ Dextrose (Levaquin Per Pharmacy) 1 each PRN DAILY PRN 09/20/16 22:15 Non-Formulary Medication 1 cap DAILY 09/21/16 09:00 UNV Olanzapine (ZyPREXA) 5 mg DAILY 09/21/16 09:30 09/21/16 09:53 5 MG Ondansetron HCl (Zofran) 4 mg PRN Q6HRS PRN 09/20/16 21:15 Oxycodone HCl (OxyCONTIN) 30 mg [id number] 09/21/16 06:30 09/21/16 06:12 30 MG Oxycodone/ Acetaminophen (Percocet 10/325) 1 tab Q4HRS 09/20/16 22:30 09/21/16 11:57 1 TAB Pantoprazole Sodium (Protonix) 40 mg DAILYAC 09/21/16 09:30 09/21/16 09:52 40 MG Potassium Chloride 100 ml @ 100 mls/hr Q1H 09/21/16 09:00 09/21/16 12:59 Cancel Roflumilast (Daliresp) 500 mcg DAILY 09/21/16 09:30 09/21/16 09:53 500 MCG Sennosides (Senna) 8.6 mg DAILY 09/21/16 09:30 09/21/16 09:52 8.6 MG Sodium Chloride 500 ml @ 30 mls/hr 1X ONCE 09/21/16 12:00 09/22/16 04:39 Allergies Allergies Allergies Coded Allergies Type Severity Reaction Last Updated Verified penicillin Allergy Severe hives 09/20/16 Yes codeine Allergy Intermediate elevated hr 316 Yes ROS Review of System CONSTITUTIONAL: No fever or chills EYES: No recent changes SKIN: No rash or itching CARDIOVASCULAR: No chest pain, syncope, palpitations, or edema RESPIRATORY: No SOB or cough GASTROINTESTINAL: No nausea, vomiting or abdominal pain NEUROLOGICAL: No headaches or weakness ENDOCRINE: No cold or heat intolerance GENITOURINARY: No urgency or frequency of urination MUSCULOSKELETAL: No back pain or joint pain LYMPHATICS: No enlarged lymph nodes PSYCHIATRIC: No anxiety or depression Physical Exam Physical Exam GEN.: No apparent distress. Alert and oriented. very hard hearing to communicate. HEENT: Head is normocephalic, atraumatic NECK: Supple. LUNGS: bl coarse bs. HEART: RRR, S1, S2 present. Peripheral pulses intact ABDOMEN: Soft, nontender. Positive bowel sounds. EXTREMITIES: Without any cyanosis. NEUROLOGIC: Normal speech, normal tone PSYCHIATRIC: Normal affect, normal mood. SKIN: No ulcerations Vitals Vitals Vital Signs Date Time Temp Pulse Resp B/P (MAP) Pulse Ox O2 Delivery O2 Flow Rate FiO2 09/21/16 11:57 18 Room Air 09/21/16 11:17 98 09/21/16 10:58 98.0 87 138/69 (92) 98.0 Labs Labs Laboratory Tests Test 09/21/16 00:03 09/21/16 00:20 09/21/16 03:00 Magnesium Level 1.8 mg/dL (1.8-2.4) Urine Collection Type Unknown Urine Color Yellow Urine Clarity Clear Urine pH 7.5 Urine Specific [place] <=1.005 Urine Protein Negative mg/dL (NEG-TRACE) Urine Glucose (UA) Negative mg/dL (NEG) Urine Ketones (Stick) Negative mg/dL (NEG) Urine Blood Negative (NEG) Urine Nitrite Negative (NEG) Urine Bilirubin Negative (NEG) Urine Urobilinogen Dipstick 0.2 mg/dL (0.2 mg/dL) Urine Leukocyte Esterase Negative (NEG) Urine RBC 0 /HPF (0-2) Urine WBC 0 /HPF (0-4) Urine Squamous Epithelial Cells Few /LPF Urine Transitional Epithelial Cells Occ /LPF Urine Bacteria 0 /HPF (0-FEW) White Blood Count 10.1 x10^3/uL (4.0-11.0) Red Blood Count 4.02 x10^6/uL (3.50-5.40) Hemoglobin 10.2 g/dL (12.0-15.5) Hematocrit 30.8 % (36.0-47.0) Mean Corpuscular Volume 77 fL (79-100) Mean Corpuscular Hemoglobin 26 pg (25-35) Mean Corpuscular Hemoglobin Concent 33 g/dL (31-37) Red Cell Distribution Width 16.0 % (11.5-14.5) Platelet Count 289 x10^3/uL (140-400) Neutrophils (%) (Auto) 77 % (31-73) Lymphocytes (%) (Auto) 14 % (24-48) Monocytes (%) (Auto) 8 % (0-9) Eosinophils (%) (Auto) 1 % (0-3) Basophils (%) (Auto) 1 % (0-3) Neutrophils # (Auto) 7.7 x10^3uL (1.8-7.7) Lymphocytes # (Auto) 1.4 x10^3/uL (1.0-4.8) Monocytes # (Auto) 0.8 x10^3/uL (0.0-1.1) Eosinophils # (Auto) 0.1 x10^3/uL (0.0-0.7) Basophils # (Auto) 0.0 x10^3/uL (0.0-0.2) Sodium Level 122 mmol/L (136-145) Potassium Level 2.6 mmol/L (3.5-5.1) Chloride Level 86 mmol/L (98-107) Carbon Dioxide Level 26 mmol/L (21-32) Anion Gap 10 (6-14) Blood Urea Nitrogen 12 mg/dL (7-20) Creatinine 0.7 mg/dL (0.6-1.0) Estimated GFR (Cockcroft-Gault) 82.0 BUN/Creatinine Ratio 17 (6-20) Glucose Level 102 mg/dL (70-99) Calcium Level 8.9 mg/dL (8.5-10.1) Total Bilirubin 0.4 mg/dL (0.2-1.0) Aspartate Amino Transf (AST/SGOT) 21 U/L (15-37) Alanine Aminotransferase (ALT/SGPT) 21 U/L (14-59) Alkaline Phosphatase 73 U/L (46-116) KA-Kfh-D-Type Natriuretic Peptide 1312 pg/mL (0-124) Total Protein 5.9 g/dL (6.4-8.2) Albumin 2.9 g/dL (3.4-5.0) Albumin/Globulin Ratio 1.0 (1.0-1.7) Laboratory Tests Test 09/21/16 00:03 09/21/16 00:20 09/21/16 03:00 Magnesium Level 1.8 mg/dL (1.8-2.4) Urine Collection Type Unknown Urine Color Yellow Urine Clarity Clear Urine pH 7.5 Urine Specific [place] <=1.005 Urine Protein Negative mg/dL (NEG-TRACE) Urine Glucose (UA) Negative mg/dL (NEG) Urine Ketones (Stick) Negative mg/dL (NEG) Urine Blood Negative (NEG) Urine Nitrite Negative (NEG) Urine Bilirubin Negative (NEG) Urine Urobilinogen Dipstick 0.2 mg/dL (0.2 mg/dL) Urine Leukocyte Esterase Negative (NEG) Urine RBC 0 /HPF (0-2) Urine WBC 0 /HPF (0-4) Urine Squamous Epithelial Cells Few /LPF Urine Transitional Epithelial Cells Occ /LPF Urine Bacteria 0 /HPF (0-FEW) White Blood Count 10.1 x10^3/uL (4.0-11.0) Red Blood Count 4.02 x10^6/uL (3.50-5.40) Hemoglobin 10.2 g/dL (12.0-15.5) Hematocrit 30.8 % (36.0-47.0) Mean Corpuscular Volume 77 fL (79-100) Mean Corpuscular Hemoglobin 26 pg (25-35) Mean Corpuscular Hemoglobin Concent 33 g/dL (31-37) Red Cell Distribution Width 16.0 % (11.5-14.5) Platelet Count 289 x10^3/uL (140-400) Neutrophils (%) (Auto) 77 % (31-73) Lymphocytes (%) (Auto) 14 % (24-48) Monocytes (%) (Auto) 8 % (0-9) Eosinophils (%) (Auto) 1 % (0-3) Basophils (%) (Auto) 1 % (0-3) Neutrophils # (Auto) 7.7 x10^3uL (1.8-7.7) Lymphocytes # (Auto) 1.4 x10^3/uL (1.0-4.8) Monocytes # (Auto) 0.8 x10^3/uL (0.0-1.1) Eosinophils # (Auto) 0.1 x10^3/uL (0.0-0.7) Basophils # (Auto) 0.0 x10^3/uL (0.0-0.2) Sodium Level 122 mmol/L (136-145) Potassium Level 2.6 mmol/L (3.5-5.1) Chloride Level 86 mmol/L (98-107) Carbon Dioxide Level 26 mmol/L (21-32) Anion Gap 10 (6-14) Blood Urea Nitrogen 12 mg/dL (7-20) Creatinine 0.7 mg/dL (0.6-1.0) Estimated GFR (Cockcroft-Gault) 82.0 BUN/Creatinine Ratio 17 (6-20) Glucose Level 102 mg/dL (70-99) Calcium Level 8.9 mg/dL (8.5-10.1) Total Bilirubin 0.4 mg/dL (0.2-1.0) Aspartate Amino Transf (AST/SGOT) 21 U/L (15-37) Alanine Aminotransferase (ALT/SGPT) 21 U/L (14-59) Alkaline Phosphatase 73 U/L (46-116) XR-Ajd-Q-Type Natriuretic Peptide 1312 pg/mL (0-124) Total Protein 5.9 g/dL (6.4-8.2) Albumin 2.9 g/dL (3.4-5.0) Albumin/Globulin Ratio 1.0 (1.0-1.7) VTE Prophylaxis Ordered VTE Prophylaxis Devices: Yes VTE Pharmacological Prophylaxi: Yes Assessment/Plan Assessment/Plan 1. 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 hypokalemia 3. bronchitis 4. copd 5. urination difficulty 6. htn 7. chronic constipation 8, normacytic anemia 2/2 chronic dz 9.; mild malnutrition plan: renal, pulm, uro consult hold htn meds add cough meds, duoneb CXR replete Na, K. as per renal, will give one time 3% saline, then cont NS asked nurse to do bladder scan cont some home meds PTOT DVT ppx check tsh, cortisol level. also osmolality ,urine lytes as per renal. admit >2nights ROMANA ORO MD Sep 21, 2016 12:36
--- NOTE | 2016-09-21 12:43 | PDOC2 ---
CONSULT Date of Consult Date of Consult DATE: 09/21/16 TIME: 12:34 Reason for Consult Reason for Consult: dyspnea Identification/Chief Complaint Chief Complaint cough/Dyspnea Problems: History of Present Illness Reason for Visit: THIS IS A 75 YR OLD ADMITTED WITH SOB AND SOME WEAKNESS. SHE HAS BEEN FEELING WOBBLY AND UNSTEADY. NO HEADACHES OR OTHER SYMPTOMS GIVEN. VISION IS OK. NA IS 122. OLD RECORDS SHOWED NA OF 131 DURING LAST HOSPITAL VISIT HERE. DOES NOT APPEAR TO HAVE HAD THIS WORKED UP. SHE HAS BEEN ON DIOVAN/HCTZ. NO EXCESSIVE THIRST OR WATER INTAKE. NO POLYURIA. SHE IS NOT ON ANY DIURETICS. SHE HAS A HX OF ASTHMA/ LONG H/O SMOKING. SHE HAS A CHRONIC COUGH FOR 25 PLUS YEARS , USUALLY NOCTURNAL WITH RECENT WORSENING. RAISED IN A FARM. HAS H/O FIBROSIS. CXR C/W PERSISTENT MILD INTERSTITIAL INFILTRATES Past Medical History Cardiovascular: HTN Pulmonary: Asthma, COPD, Other GI: Diverticulosis Heme/Onc: Anemia NOS Hepatobiliary: Cholelithiasis Psych: No pertinent hx Musculoskeletal: Weakness Endocrine: Other Past Surgical History Past Surgical History: No pertinent history Family History Family History: No Significant Social History # pack years (25) ALCOHOL: rare Drugs: None Current Medications Current Medications Current Medications Oxycodone/ Acetaminophen (Percocet 10/325) 1 tab Q4HRS PO ; Start 09/21/16 at 00 :00; Stop 09/21/16 at 00:00; Status DC Oxycodone HCl (OxyCONTIN) 30 mg Q12HR PO ; Start 09/21/16 at 09:00; Stop at 09:00; Status DC Sodium Chloride 1,000 ml @ 60 mls/hr [id number] IV Last administered on t 08:07; Start 09/20/16 at 21:10 Ondansetron HCl (Zofran) 4 mg PRN Q6HRS PRN IV NAUSEA/VOMITING; Start 09/20/16 at 21:15 Acetaminophen (Tylenol) 650 mg PRN Q6HRS PRN PO FEVER; Start 09/20/16 at 21:15 Ceftriaxone Sodium 1 gm/ Sodium Chloride 50 ml @ 100 mls/hr Q24H IV ; Start at 21:15; Status UNV Oxycodone HCl (OxyCONTIN) 30 mg [id number] PO Last administered on 09/21/16 06:12; Start 09/21/16 at 06:30 Oxycodone/ Acetaminophen (Percocet 10/325) 1 tab Q4HRS PO Last administered on 09/21/16 11:57; Start 09/20/16 at 22:30 Levofloxacin/ Dextrose (Levaquin Per Pharmacy) 1 each PRN DAILY PRN MC SEE COMMENTS; Start 09/20/16 at 22:15 Levofloxacin/ Dextrose 100 ml @ 100 mls/hr 1X ONCE IV Last administered on 00:24; Start 09/20/16 at 23:00; Stop 09/20/16 at 23:59; Status DC Levofloxacin/ Dextrose 50 ml @ 50 mls/hr Q24H IV ; Start 09/21/16 at 23:00 Potassium Chloride 100 ml @ 100 mls/hr Q1H IV Last administered on 09/21/16 10:37; Start 09/21/16 at 07:00; Stop 09/21/16 at 10:59; Status DC Potassium Chloride 100 ml @ 100 mls/hr Q1H IV ; Start 09/21/16 at 09:00; Stop 09/21/16 at 12:59; Status Cancel Cetirizine HCl (ZyrTEC) 10 mg DAILY PO Last administered on 09/21/16 09:51; Start 09/21/16 at 09:30 Clonazepam (KlonoPIN) 0.5 mg DAILY PO Last administered on 09/21/16 09:53; Start 09/21/16 at 09:30 Cyclobenzaprine HCl (Flexeril) 10 mg TID PO Last administered on 09/21/16 09: 52; Start 09/21/16 at 09:30 Fentanyl (Duragesic 100mcg/Hr Patch) 1 patch Q72H TD Last administered on 09:51; Start 09/21/16 at 09:30 Olanzapine (ZyPREXA) 5 mg DAILY PO Last administered on 09/21/16 09:53; Start 09/21/16 at 09:30 Roflumilast (Daliresp) 500 mcg DAILY PO Last administered on 09/21/16 09:53; Start 09/21/16 at 09:30 Sennosides (Senna) 8.6 mg DAILY PO Last administered on 09/21/16 09:52; Start 09/21/16 at 09:30 Non-Formulary Medication 1 puff BID IH ; Start 09/21/16 at 09:00; Status UNV Pantoprazole Sodium (Protonix) 40 mg DAILYAC PO Last administered on 09/21/16 09:52; Start 09/21/16 at 09:30 Non-Formulary Medication 1 cap DAILY IH ; Start 09/21/16 at 09:00; Status UNV Albuterol/ Ipratropium (Duoneb) 3 ml RTQID NEB Last administered on 09/21/16 11:17; Start 09/21/16 at 09:30 Albuterol/ Ipratropium (Duoneb) 3 ml RTQID NEB ; Start 09/21/16 at 12:00; Status UNV Budesonide (Pulmicort) 0.5 mg RTBID NEB Last administered on 09/21/16 09:00; Start 09/21/16 at 09:30 Albuterol/ Ipratropium (Duoneb) 3 ml RTQID NEB ; Start 09/21/16 at 12:00; Status Cancel Albuterol Sulfate (Ventolin Neb Soln) 2.5 mg PRN Q2HR PRN NEB SHORTNESS OF BREATH; Start 09/21/16 at 10:00 Guaifenesin (Mucinex) 600 mg BID PO Last administered on 09/21/16 11:56; Start 09/21/16 at 11:00 Sodium Chloride 500 ml @ 30 mls/hr 1X ONCE IV ; Start 09/21/16 at 12:00; Stop 09/22/16 at 04:39 Enoxaparin Sodium (Lovenox 40mg Syringe) 40 mg Q24H SQ ; Start 09/21/16 at 16:00 Active Scripts Active Reported Albuterol Sulfate Neb Soln (Albuterol Sulfate) 2.5 Mg/3 Ml Vial.neb 2.5 Mg NEB Q6HRS Combivent Respimat Inhal (Ipratropium/Albuterol Sulfate) 4 Gm Aer.w.adap 2 Inh IH QID Glucosamine Chondroitin Tab (Gluc Chung/Chondro Chung A/Vit C/Mn) 1 Each Tablet 1 Each PO Aloe Vera 25 Mg Capsule 25 Mg PO BID [potassium bicarb] 600 Intlu PO Azelastine Hcl 137 Mcg/0.137 Ml [place].pump 2 [place] NS BID Cetirizine Hcl 10 Mg Tablet 1 Tab PO DAILY Omeprazole 40 Mg Capsule.dr 1 Cap PO DAILY Celebrex (Celecoxib) 200 Mg Capsule 200 Mg PO BID 30 Days Oxycontin (Oxycodone HCl) 30 Mg Tab.er.12h 30 Mg PO BID Multivitamins (Multivitamin) 1 Each Tablet 1 Tab PO DAILY FENTANYL 100mcg/hr (Fentanyl) 1 Each Patch.td72 1 Patch TD Q72H Daliresp (Roflumilast) 500 Mcg Tablet 1 Tab PO DAILY Amitiza (Lubiprostone) 24 Mcg Capsule 1 Cap PO BID Oxycodone-Acetaminophen 10-325 (Oxycodone Hcl/Acetaminophen) 1 Each Tablet 1 Tab PO Q4HRS Cyclobenzaprine Hcl 10 Mg Tablet 1 Tab PO TID Nasonex (Mometasone Furoate) 17 Gm [place].pump 2 Sprays NS DAILY Spiriva (Tiotropium [place]) 18 Mcg Cap.w.dev 1 Cap IH DAILY Advair 500-50 Diskus (Fluticasone/Salmeterol) 1 Each Disk.w.dev 1 Puff IH BID Clonazepam 0.5 Mg Tablet 1 Tab PO DAILY Olanzapine 2.5 Mg Tablet 5 Mg PO DAILY Prednisone 2.5 Mg Tablet 5 Mg PO DAILY Super B Complex (Vitamin B Complex & Vit C No.4) 150 Mg Tablet 150 Mg PO Green Tea (Green Tea [place] Extract) 1 Each Capsule 1 Each PO BID Vitamin A 8,000 Unit Capsule 8,000 Unit PO Vitamin C (Ascorbic Acid) 1,000 Mg Tablet 1,000 Mg PO Vitamin E (Vitamin E Mixed) 400 Unit Capsule 400 Unit PO Vitamin D (Cholecalciferol (Vitamin D3)) 1,000 Unit Capsule 1,000 Unit PO Calcium (Calcium Carbonate) 600 Mg Tablet 1,200 Mg PO Vegetable Laxative (Sennosides) 8.6 Mg Tablet 8.6 Mg PO Evista (Raloxifene Hcl) 60 Mg Tablet 60 Mg PO DAILY Diovan Hct 160-12.5 Mg Tab (Valsartan/Hydrochlorothiazide) 1 Each Tablet 1 Each PO Allergies Allergies: Coded Allergies: penicillin (Verified Allergy, Severe, hives, 09/20/16) anaphylactic codeine (Verified Allergy, Intermediate, elevated hr, 05/29/15) ROS Respiratory: YES: Cough, Shortness of breath, Tachypnea Skin: Yes Dry Skin Physical Exam General: Alert, Oriented X3, No acute distress HEENT: Mucous membr. moist/pink Lungs: Other (few rhonchi) Heart: Regular rate, Normal S1, No murmurs Abdomen: Normal bowel sounds, Soft Extremities: No clubbing, No cyanosis, No edema, Normal pulses Skin: No rashes, No breakdown Neuro: Normal gait Psych/Mental Status: Mental status NL MUSCULOSKELETAL: No joint tenderness Vitals VITALS Vital Signs Date Time Temp Pulse Resp B/P (MAP) Pulse Ox O2 Delivery O2 Flow Rate FiO2 09/21/16 11:57 18 Room Air 09/21/16 11:17 98 09/21/16 10:58 98.0 87 138/69 (92) 98.0 Labs Labs Laboratory Tests Test 09/21/16 00:03 09/21/16 00:20 09/21/16 03:00 Magnesium Level 1.8 mg/dL (1.8-2.4) Urine Collection Type Unknown Urine Color Yellow Urine Clarity Clear Urine pH 7.5 Urine Specific [place] <=1.005 Urine Protein Negative mg/dL (NEG-TRACE) Urine Glucose (UA) Negative mg/dL (NEG) Urine Ketones (Stick) Negative mg/dL (NEG) Urine Blood Negative (NEG) Urine Nitrite Negative (NEG) Urine Bilirubin Negative (NEG) Urine Urobilinogen Dipstick 0.2 mg/dL (0.2 mg/dL) Urine Leukocyte Esterase Negative (NEG) Urine RBC 0 /HPF (0-2) Urine WBC 0 /HPF (0-4) Urine Squamous Epithelial Cells Few /LPF Urine Transitional Epithelial Cells Occ /LPF Urine Bacteria 0 /HPF (0-FEW) White Blood Count 10.1 x10^3/uL (4.0-11.0) Red Blood Count 4.02 x10^6/uL (3.50-5.40) Hemoglobin 10.2 g/dL (12.0-15.5) Hematocrit 30.8 % (36.0-47.0) Mean Corpuscular Volume 77 fL (79-100) Mean Corpuscular Hemoglobin 26 pg (25-35) Mean Corpuscular Hemoglobin Concent 33 g/dL (31-37) Red Cell Distribution Width 16.0 % (11.5-14.5) Platelet Count 289 x10^3/uL (140-400) Neutrophils (%) (Auto) 77 % (31-73) Lymphocytes (%) (Auto) 14 % (24-48) Monocytes (%) (Auto) 8 % (0-9) Eosinophils (%) (Auto) 1 % (0-3) Basophils (%) (Auto) 1 % (0-3) Neutrophils # (Auto) 7.7 x10^3uL (1.8-7.7) Lymphocytes # (Auto) 1.4 x10^3/uL (1.0-4.8) Monocytes # (Auto) 0.8 x10^3/uL (0.0-1.1) Eosinophils # (Auto) 0.1 x10^3/uL (0.0-0.7) Basophils # (Auto) 0.0 x10^3/uL (0.0-0.2) Sodium Level 122 mmol/L (136-145) Potassium Level 2.6 mmol/L (3.5-5.1) Chloride Level 86 mmol/L (98-107) Carbon Dioxide Level 26 mmol/L (21-32) Anion Gap 10 (6-14) Blood Urea Nitrogen 12 mg/dL (7-20) Creatinine 0.7 mg/dL (0.6-1.0) Estimated GFR (Cockcroft-Gault) 82.0 BUN/Creatinine Ratio 17 (6-20) Glucose Level 102 mg/dL (70-99) Calcium Level 8.9 mg/dL (8.5-10.1) Total Bilirubin 0.4 mg/dL (0.2-1.0) Aspartate Amino Transf (AST/SGOT) 21 U/L (15-37) Alanine Aminotransferase (ALT/SGPT) 21 U/L (14-59) Alkaline Phosphatase 73 U/L (46-116) IP-Rmo-O-Type Natriuretic Peptide 1312 pg/mL (0-124) Total Protein 5.9 g/dL (6.4-8.2) Albumin 2.9 g/dL (3.4-5.0) Albumin/Globulin Ratio 1.0 (1.0-1.7) Laboratory Tests Test 09/21/16 00:03 09/21/16 00:20 09/21/16 03:00 Magnesium Level 1.8 mg/dL (1.8-2.4) Urine Collection Type Unknown Urine Color Yellow Urine Clarity Clear Urine pH 7.5 Urine Specific [place] <=1.005 Urine Protein Negative mg/dL (NEG-TRACE) Urine Glucose (UA) Negative mg/dL (NEG) Urine Ketones (Stick) Negative mg/dL (NEG) Urine Blood Negative (NEG) Urine Nitrite Negative (NEG) Urine Bilirubin Negative (NEG) Urine Urobilinogen Dipstick 0.2 mg/dL (0.2 mg/dL) Urine Leukocyte Esterase Negative (NEG) Urine RBC 0 /HPF (0-2) Urine WBC 0 /HPF (0-4) Urine Squamous Epithelial Cells Few /LPF Urine Transitional Epithelial Cells Occ /LPF Urine Bacteria 0 /HPF (0-FEW) White Blood Count 10.1 x10^3/uL (4.0-11.0) Red Blood Count 4.02 x10^6/uL (3.50-5.40) Hemoglobin 10.2 g/dL (12.0-15.5) Hematocrit 30.8 % (36.0-47.0) Mean Corpuscular Volume 77 fL (79-100) Mean Corpuscular Hemoglobin 26 pg (25-35) Mean Corpuscular Hemoglobin Concent 33 g/dL (31-37) Red Cell Distribution Width 16.0 % (11.5-14.5) Platelet Count 289 x10^3/uL (140-400) Neutrophils (%) (Auto) 77 % (31-73) Lymphocytes (%) (Auto) 14 % (24-48) Monocytes (%) (Auto) 8 % (0-9) Eosinophils (%) (Auto) 1 % (0-3) Basophils (%) (Auto) 1 % (0-3) Neutrophils # (Auto) 7.7 x10^3uL (1.8-7.7) Lymphocytes # (Auto) 1.4 x10^3/uL (1.0-4.8) Monocytes # (Auto) 0.8 x10^3/uL (0.0-1.1) Eosinophils # (Auto) 0.1 x10^3/uL (0.0-0.7) Basophils # (Auto) 0.0 x10^3/uL (0.0-0.2) Sodium Level 122 mmol/L (136-145) Potassium Level 2.6 mmol/L (3.5-5.1) Chloride Level 86 mmol/L (98-107) Carbon Dioxide Level 26 mmol/L (21-32) Anion Gap 10 (6-14) Blood Urea Nitrogen 12 mg/dL (7-20) Creatinine 0.7 mg/dL (0.6-1.0) Estimated GFR (Cockcroft-Gault) 82.0 BUN/Creatinine Ratio 17 (6-20) Glucose Level 102 mg/dL (70-99) Calcium Level 8.9 mg/dL (8.5-10.1) Total Bilirubin 0.4 mg/dL (0.2-1.0) Aspartate Amino Transf (AST/SGOT) 21 U/L (15-37) Alanine Aminotransferase (ALT/SGPT) 21 U/L (14-59) Alkaline Phosphatase 73 U/L (46-116) YT-Xsk-U-Type Natriuretic Peptide 1312 pg/mL (0-124) Total Protein 5.9 g/dL (6.4-8.2) Albumin 2.9 g/dL (3.4-5.0) Albumin/Globulin Ratio 1.0 (1.0-1.7) Assessment/Plan Assessment/Plan 1. Suspect underlying interstitial lung disease/ fibrosis 2. COPD 3. Chronic persistent cough due to above with recent worsening 4. Acute bronchitis 5. chronic steroid dependence Plan 1. ct chest to r/o ILD/ fibrosis 2. Nebs 3. cough suppressants 4. antibiotics 5. further recommendations to follow 6. steroids CHERRIE LEVIN MD Sep 21, 2016 12:43
--- NOTE | 2016-09-21 14:34 | RAD ---
Indication: Chronic cough and suspected interstitial lung disease. Axial imaging through the chest was performed without intravenous contrast. No prior studies are available for comparison. There are bilateral breast implants. No axillary lymphadenopathy is identified. There appear to be multiple calcified lymph nodes within the mediastinum and left hilum consistent with prior granulomatous exposure. Coronary arterial calcifications are present. The heart size is normal. No pericardial or pleural fluid is identified. Calcified plaque in the thoracic aorta is noted. Parenchymal evaluation does show some upper lobe emphysematous changes. There are calcified granulomas in the left lower lobe. Mild subpleural reticular densities are seen in bilateral lower lobes but no significant honeycombing is identified. The central airways are unremarkable. No peribronchial interstitial thickening is seen. No groundglass opacities are identified. No significant air trapping is seen, however, expiratory imaging was not performed. No noncalcified parenchymal mass is identified. The upper abdomen is unremarkable. Impression: There are emphysematous changes in both lungs. There are mild basilar interstitial changes, nonspecific. No other significant abnormality is detected. PQRS Compliance Statement: One or more of the following individualized dose reduction techniques were utilized for this examination: 1. Automated exposure control 2. Adjustment of the mA and/or kV according to patient size 3. Use of iterative reconstruction technique
[2016-09-21 15:00] VITALS: BP 134/76
--- NOTE | 2016-09-21 16:17 | PDOC ---
PROGRESS NOTES Subjective Subjective Pt. had possible uti 1 week ago Objective Objective Vital Signs Date Time Temp Pulse Resp B/P (MAP) Pulse Ox O2 Delivery O2 Flow Rate FiO2 09/21/16 15:26 98 Room Air 09/21/16 13:51 18 09/21/16 10:58 98.0 87 138/69 (92) 98.0 Intake and Output 09/21/16 07:00 Intake Total 300 ml Output Total 700 ml Balance -400 ml IV Total 300 ml Output Urine Total 700 ml # Voids 2 Physical Exam Physical Exam Pt. currently with no voiding complaints Plan Plan of Care UA-neg Cr.-0.7 Check renal sono and PVR f/u Dr. [facility] in [place] in 2-4 weeks Comment Review of Relevant I have reviewed the following items farzad (where applicable) has been applied. Labs Laboratory Tests Test 09/21/16 00:03 09/21/16 00:20 09/21/16 01:15 09/21/16 03:00 Magnesium Level 1.8 mg/dL (1.8-2.4) Urine Collection Type Unknown Urine Color Yellow Urine Clarity Clear Urine pH 7.5 Urine Specific Norris <=1.005 Urine Protein Negative mg/dL (NEG-TRACE) Urine Glucose (UA) Negative mg/dL (NEG) Urine Ketones (Stick) Negative mg/dL (NEG) Urine Blood Negative (NEG) Urine Nitrite Negative (NEG) Urine Bilirubin Negative (NEG) Urine Urobilinogen Dipstick 0.2 mg/dL (0.2 mg/dL) Urine Leukocyte Esterase Negative (NEG) Urine RBC 0 /HPF (0-2) Urine WBC 0 /HPF (0-4) Urine Squamous Epithelial Cells Few /LPF Urine Transitional Epithelial Cells Occ /LPF Urine Bacteria 0 /HPF (0-FEW) Serum Osmolality 245 mOsm/Kg (279-304) White Blood Count 10.1 x10^3/uL (4.0-11.0) Red Blood Count 4.02 x10^6/uL (3.50-5.40) Hemoglobin 10.2 g/dL (12.0-15.5) Hematocrit 30.8 % (36.0-47.0) Mean Corpuscular Volume 77 fL (79-100) Mean Corpuscular Hemoglobin 26 pg (25-35) Mean Corpuscular Hemoglobin Concent 33 g/dL (31-37) Red Cell Distribution Width 16.0 % (11.5-14.5) Platelet Count 289 x10^3/uL (140-400) Neutrophils (%) (Auto) 77 % (31-73) Lymphocytes (%) (Auto) 14 % (24-48) Monocytes (%) (Auto) 8 % (0-9) Eosinophils (%) (Auto) 1 % (0-3) Basophils (%) (Auto) 1 % (0-3) Neutrophils # (Auto) 7.7 x10^3uL (1.8-7.7) Lymphocytes # (Auto) 1.4 x10^3/uL (1.0-4.8) Monocytes # (Auto) 0.8 x10^3/uL (0.0-1.1) Eosinophils # (Auto) 0.1 x10^3/uL (0.0-0.7) Basophils # (Auto) 0.0 x10^3/uL (0.0-0.2) Sodium Level 122 mmol/L (136-145) Potassium Level 2.6 mmol/L (3.5-5.1) Chloride Level 86 mmol/L (98-107) Carbon Dioxide Level 26 mmol/L (21-32) Anion Gap 10 (6-14) Blood Urea Nitrogen 12 mg/dL (7-20) Creatinine 0.7 mg/dL (0.6-1.0) Estimated GFR (Cockcroft-Gault) 82.0 BUN/Creatinine Ratio 17 (6-20) Glucose Level 102 mg/dL (70-99) Calcium Level 8.9 mg/dL (8.5-10.1) Total Bilirubin 0.4 mg/dL (0.2-1.0) Aspartate Amino Transf (AST/SGOT) 21 U/L (15-37) Alanine Aminotransferase (ALT/SGPT) 21 U/L (14-59) Alkaline Phosphatase 73 U/L (46-116) CX-Ikq-W-Type Natriuretic Peptide 1312 pg/mL (0-124) Total Protein 5.9 g/dL (6.4-8.2) Albumin 2.9 g/dL (3.4-5.0) Albumin/Globulin Ratio 1.0 (1.0-1.7) Laboratory Tests Test 09/21/16 00:03 09/21/16 00:20 09/21/16 01:15 09/21/16 03:00 Magnesium Level 1.8 mg/dL (1.8-2.4) Urine Collection Type Unknown Urine Color Yellow Urine Clarity Clear Urine pH 7.5 Urine Specific [place] <=1.005 Urine Protein Negative mg/dL (NEG-TRACE) Urine Glucose (UA) Negative mg/dL (NEG) Urine Ketones (Stick) Negative mg/dL (NEG) Urine Blood Negative (NEG) Urine Nitrite Negative (NEG) Urine Bilirubin Negative (NEG) Urine Urobilinogen Dipstick 0.2 mg/dL (0.2 mg/dL) Urine Leukocyte Esterase Negative (NEG) Urine RBC 0 /HPF (0-2) Urine WBC 0 /HPF (0-4) Urine Squamous Epithelial Cells Few /LPF Urine Transitional Epithelial Cells Occ /LPF Urine Bacteria 0 /HPF (0-FEW) Serum Osmolality 245 mOsm/Kg (279-304) White Blood Count 10.1 x10^3/uL (4.0-11.0) Red Blood Count 4.02 x10^6/uL (3.50-5.40) Hemoglobin 10.2 g/dL (12.0-15.5) Hematocrit 30.8 % (36.0-47.0) Mean Corpuscular Volume 77 fL (79-100) Mean Corpuscular Hemoglobin 26 pg (25-35) Mean Corpuscular Hemoglobin Concent 33 g/dL (31-37) Red Cell Distribution Width 16.0 % (11.5-14.5) Platelet Count 289 x10^3/uL (140-400) Neutrophils (%) (Auto) 77 % (31-73) Lymphocytes (%) (Auto) 14 % (24-48) Monocytes (%) (Auto) 8 % (0-9) Eosinophils (%) (Auto) 1 % (0-3) Basophils (%) (Auto) 1 % (0-3) Neutrophils # (Auto) 7.7 x10^3uL (1.8-7.7) Lymphocytes # (Auto) 1.4 x10^3/uL (1.0-4.8) Monocytes # (Auto) 0.8 x10^3/uL (0.0-1.1) Eosinophils # (Auto) 0.1 x10^3/uL (0.0-0.7) Basophils # (Auto) 0.0 x10^3/uL (0.0-0.2) Sodium Level 122 mmol/L (136-145) Potassium Level 2.6 mmol/L (3.5-5.1) Chloride Level 86 mmol/L (98-107) Carbon Dioxide Level 26 mmol/L (21-32) Anion Gap 10 (6-14) Blood Urea Nitrogen 12 mg/dL (7-20) Creatinine 0.7 mg/dL (0.6-1.0) Estimated GFR (Cockcroft-Gault) 82.0 BUN/Creatinine Ratio 17 (6-20) Glucose Level 102 mg/dL (70-99) Calcium Level 8.9 mg/dL (8.5-10.1) Total Bilirubin 0.4 mg/dL (0.2-1.0) Aspartate Amino Transf (AST/SGOT) 21 U/L (15-37) Alanine Aminotransferase (ALT/SGPT) 21 U/L (14-59) Alkaline Phosphatase 73 U/L (46-116) HK-Txk-T-Type Natriuretic Peptide 1312 pg/mL (0-124) Total Protein 5.9 g/dL (6.4-8.2) Albumin 2.9 g/dL (3.4-5.0) Albumin/Globulin Ratio 1.0 (1.0-1.7) Medications Current Medications Oxycodone/ Acetaminophen (Percocet 10/325) 1 tab Q4HRS PO ; Start 09/21/16 at 00 :00; Stop 09/21/16 at 00:00; Status DC Oxycodone HCl (OxyCONTIN) 30 mg Q12HR PO ; Start 09/21/16 at 09:00; Stop at 09:00; Status DC Sodium Chloride 1,000 ml @ 60 mls/hr [id number] IV Last administered on t 08:07; Start 09/20/16 at 21:10 Ondansetron HCl (Zofran) 4 mg PRN Q6HRS PRN IV NAUSEA/VOMITING; Start 09/20/16 at 21:15 Acetaminophen (Tylenol) 650 mg PRN Q6HRS PRN PO FEVER; Start 09/20/16 at 21:15 Ceftriaxone Sodium 1 gm/ Sodium Chloride 50 ml @ 100 mls/hr Q24H IV ; Start at 21:15; Status UNV Oxycodone HCl (OxyCONTIN) 30 mg [id number] PO Last administered on 09/21/16 06:12; Start 09/21/16 at 06:30 Oxycodone/ Acetaminophen (Percocet 10/325) 1 tab Q4HRS PO Last administered on 09/21/16 11:57; Start 09/20/16 at 22:30 Levofloxacin/ Dextrose (Levaquin Per Pharmacy) 1 each PRN DAILY PRN MC SEE COMMENTS; Start 09/20/16 at 22:15 Levofloxacin/ Dextrose 100 ml @ 100 mls/hr 1X ONCE IV Last administered on 00:24; Start 09/20/16 at 23:00; Stop 09/20/16 at 23:59; Status DC Levofloxacin/ Dextrose 50 ml @ 50 mls/hr Q24H IV ; Start 09/21/16 at 23:00 Potassium Chloride 100 ml @ 100 mls/hr Q1H IV Last administered on 09/21/16 10:37; Start 09/21/16 at 07:00; Stop 09/21/16 at 10:59; Status DC Potassium Chloride 100 ml @ 100 mls/hr Q1H IV ; Start 09/21/16 at 09:00; Stop 09/21/16 at 12:59; Status Cancel Cetirizine HCl (ZyrTEC) 10 mg DAILY PO Last administered on 09/21/16 09:51; Start 09/21/16 at 09:30 Clonazepam (KlonoPIN) 0.5 mg DAILY PO Last administered on 09/21/16 09:53; Start 09/21/16 at 09:30 Cyclobenzaprine HCl (Flexeril) 10 mg TID PO Last administered on 09/21/16 14: 17; Start 09/21/16 at 09:30 Fentanyl (Duragesic 100mcg/Hr Patch) 1 patch Q72H TD Last administered on 09:51; Start 09/21/16 at 09:30 Olanzapine (ZyPREXA) 5 mg DAILY PO Last administered on 09/21/16 09:53; Start 09/21/16 at 09:30 Roflumilast (Daliresp) 500 mcg DAILY PO Last administered on 09/21/16 09:53; Start 09/21/16 at 09:30 Sennosides (Senna) 8.6 mg DAILY PO Last administered on 09/21/16 09:52; Start 09/21/16 at 09:30 Non-Formulary Medication 1 puff BID IH ; Start 09/21/16 at 09:00; Status UNV Pantoprazole Sodium (Protonix) 40 mg DAILYAC PO Last administered on 09/21/16 09:52; Start 09/21/16 at 09:30 Non-Formulary Medication 1 cap DAILY IH ; Start 09/21/16 at 09:00; Status UNV Albuterol/ Ipratropium (Duoneb) 3 ml RTQID NEB Last administered on 09/21/16 15:26; Start 09/21/16 at 09:30 Albuterol/ Ipratropium (Duoneb) 3 ml RTQID NEB ; Start 09/21/16 at 12:00; Status UNV Budesonide (Pulmicort) 0.5 mg RTBID NEB Last administered on 09/21/16 09:00; Start 09/21/16 at 09:30 Albuterol/ Ipratropium (Duoneb) 3 ml RTQID NEB ; Start 09/21/16 at 12:00; Status Cancel Albuterol Sulfate (Ventolin Neb Soln) 2.5 mg PRN Q2HR PRN NEB SHORTNESS OF BREATH; Start 09/21/16 at 10:00 Guaifenesin (Mucinex) 600 mg BID PO Last administered on 09/21/16 11:56; Start 09/21/16 at 11:00 Sodium Chloride 500 ml @ 30 mls/hr 1X ONCE IV Last administered on 09/21/16 13:14; Start 09/21/16 at 12:00; Stop 09/22/16 at 04:39 Enoxaparin Sodium (Lovenox 40mg Syringe) 40 mg Q24H SQ ; Start 09/21/16 at 16:00 Active Scripts Active Reported Albuterol Sulfate Neb Soln (Albuterol Sulfate) 2.5 Mg/3 Ml Vial.neb 2.5 Mg NEB Q6HRS Combivent Respimat Inhal (Ipratropium/Albuterol Sulfate) 4 Gm Aer.w.adap 2 Inh IH QID Glucosamine Chondroitin Tab (Gluc Chung/Chondro Chung A/Vit C/Mn) 1 Each Tablet 1 Each PO Aloe Vera 25 Mg Capsule 25 Mg PO BID [potassium bicarb] 600 Intlu PO Azelastine Hcl 137 Mcg/0.137 Ml [place].pump 2 [place] NS BID Cetirizine Hcl 10 Mg Tablet 1 Tab PO DAILY Omeprazole 40 Mg Capsule.dr 1 Cap PO DAILY Celebrex (Celecoxib) 200 Mg Capsule 200 Mg PO BID 30 Days Oxycontin (Oxycodone HCl) 30 Mg Tab.er.12h 30 Mg PO BID Multivitamins (Multivitamin) 1 Each Tablet 1 Tab PO DAILY FENTANYL 100mcg/hr (Fentanyl) 1 Each Patch.td72 1 Patch TD Q72H Daliresp (Roflumilast) 500 Mcg Tablet 1 Tab PO DAILY Amitiza (Lubiprostone) 24 Mcg Capsule 1 Cap PO BID Oxycodone-Acetaminophen 10-325 (Oxycodone Hcl/Acetaminophen) 1 Each Tablet 1 Tab PO Q4HRS Cyclobenzaprine Hcl 10 Mg Tablet 1 Tab PO TID Nasonex (Mometasone Furoate) 17 Gm [place].pump 2 Sprays NS DAILY Spiriva (Tiotropium [place]) 18 Mcg Cap.w.dev 1 Cap IH DAILY Advair 500-50 Diskus (Fluticasone/Salmeterol) 1 Each Disk.w.dev 1 Puff IH BID Clonazepam 0.5 Mg Tablet 1 Tab PO DAILY Olanzapine 2.5 Mg Tablet 5 Mg PO DAILY Prednisone 2.5 Mg Tablet 5 Mg PO DAILY Super B Complex (Vitamin B Complex & Vit C No.4) 150 Mg Tablet 150 Mg PO Green Tea (Green Tea [place] Extract) 1 Each Capsule 1 Each PO BID Vitamin A 8,000 Unit Capsule 8,000 Unit PO Vitamin C (Ascorbic Acid) 1,000 Mg Tablet 1,000 Mg PO Vitamin E (Vitamin E Mixed) 400 Unit Capsule 400 Unit PO Vitamin D (Cholecalciferol (Vitamin D3)) 1,000 Unit Capsule 1,000 Unit PO Calcium (Calcium Carbonate) 600 Mg Tablet 1,200 Mg PO Vegetable Laxative (Sennosides) 8.6 Mg Tablet 8.6 Mg PO Evista (Raloxifene Hcl) 60 Mg Tablet 60 Mg PO DAILY Diovan Hct 160-12.5 Mg Tab (Valsartan/Hydrochlorothiazide) 1 Each Tablet 1 Each PO Vitals/I & O Vital Sign - Last 24 Hours 09/20/16 09/20/16 09/20/16 09/21/16 19:45 19:45 23:03 03:42 Temp 98.3 96.7 97.5 98.3 96.7 97.5 Pulse 101 88 92 Resp 20 19 18 B/P (MAP) 186/92 (123) 175/90 (118) 154/75 (101) Pulse Ox 96 95 94 O2 Delivery Room Air Room Air Room Air Room Air 09/21/16 09/21/16 09/21/16 09/21/16 07:00 07:30 08:00 09:00 Temp 98.0 98.0 Pulse 78 Resp 17 18 B/P (MAP) 156/75 (102) Pulse Ox 98 98 O2 Delivery Room Air Room Air Room Air Room Air 09/21/16 09/21/16 09/21/16 09/21/16 09:51 10:37 10:58 11:17 Temp 98.0 98.0 Pulse 87 Resp 16 17 B/P (MAP) 138/69 (92) Pulse Ox 97 98 O2 Delivery Room Air Room Air Room Air Room Air 09/21/16 09/21/16 09/21/16 09/21/16 11:57 12:57 13:51 15:26 Resp 18 18 Pulse Ox 98 98 O2 Delivery Room Air Room Air Room Air Room Air Intake and Output 09/20/16 09/20/16 09/21/16 15:00 23:00 07:00 Intake Total 300 ml Output Total 700 ml Balance -400 ml DANIEL CONTRERAS MD Sep 21, 2016 16:17
[2016-09-21] MEDS: ENOXAPARIN 40 MG/0.4 ML SYRINGE. SQ SCH (16:31)
[2016-09-21 19:00] VITALS: BP 111/54
--- NOTE | 2016-09-21 21:59 | CARD ---
APPROVED REPORT EXAM: Two-dimensional and M-mode echocardiogram with Doppler and color Doppler. Other Information Quality : GoodHR: 85bpm Rhythm : NSR INDICATION CHF 2D DIMENSIONS Left Atrium(2D)3.0 (1.6-4.0cm)IVSd0.8 (0.7-1.1cm) Aortic Root(2D)3.1 (2.0-3.7cm)LVDd4.6 (3.9-5.9cm) LVOT Diameter2.1 (1.8-2.4cm)PWd1.0 (0.7-1.1cm) LVDs2.8 (2.5-4.0cm)FS (%) 38.7 % SV66.8 mlLVEF(%)69.2 (>50%) Aortic Valve AoV Peak Art.172.4cm/sAoV VTI35.7cm AO Peak GR.11.9mmHgLVOT Peak Art.95.9cm/s AO Mean GR.6mmHgAVA (VMAX)1.94cm2 Mitral Valve MV E Thkntidh60.2cm/sMV E Peak Gr.6mmHg MV DECEL [id number] A Lisfxcnj736.9cm/s MV E Mean Gr.2mmHgE/A Ratio0.7 MV A [id number] Pulmonary Valve PV Peak Oznuednu69.0cm/s Pulmonary Vein S1 Ziysfhph42.3cm/sD2 Dvpkwxwh86.2cm/s PVa [id number] LEFT VENTRICLE The left ventricle is normal size. There is normal left ventricular wall thickness. There is mild hyp okinesis of the antreriorwall. The ejection fraction is 60%. There is normal LV segmental wall motion . Transmitral Doppler flow pattern is Grade I-abnormal relaxation pattern. RIGHT VENTRICLE The right ventricle is normal size. There is normal right ventricular wall thickness. The right ventr icular systolic function is normal. ATRIA The left atrium size is normal. The right atrium size is normal. The interatrial septum is intact wit h no evidence for an atrial septal defect or patent foramen ovale as noted on 2-D or Doppler imaging. AORTIC VALVE The aortic valve is mildly sclerotic. The aortic valve is trileaflet. Doppler and Color Flow revealed no significant aortic regurgitation. There is no significant aortic valvular stenosis. MITRAL VALVE Mitral annular calcification is mild. The mitral valve leaflets are thickened. There is no evidence o f mitral valve prolapse. There is no mitral valve stenosis. Doppler and Color Flow revealed trace sean ral regurgitation. TRICUSPID VALVE Doppler and Color Flow revealed no tricuspid valve regurgitation noted. Unable to determine pulmonary artery pressure at exam time. PULMONIC VALVE Doppler and Color Flow revealed mild pulmonic valvular regurgitation. There is no pulmonic valvular s tenosis. GREAT VESSELS The aortic root is normal in size. The ascending aorta is normal in size. The pulmonary artery is nor mal. The IVC is normal in size and collapses >50% with inspiration. PERICARDIAL EFFUSION There is no evidence of significant pericardial effusion. Critical Notification Critical Value: No <Conclusion> The left ventricle is normal size. There is normal left ventricular wall thickness. There is mild hypokinesis of the anteriorvwall. The ejection fraction is 60%. There is a Grade I diastolic dysfuction There is no evidence of significant pericardial effusion. There is no mitral stenosis and a mild mitral regurgitation. The left trium is of a normal size. The aortic valve is mildly sclerotic. The aortic valve is trileaflet. There is a mild aortic stenosis but no regurgitation The right ventricle is of a normal size with normal systolic function There is no tricuspid regurgitation to be able to evaluate the RVSP. Doppler and Color Flow revealed mild pulmonic valvular regurgitation.
--- NOTE | 2016-09-21 21:59 | RAD ---
Renal sonography History: Difficulty voiding. Findings: The longitudinal and AP and transverse dimensions of the right kidney are 9.1 cm and 4.0 cm and 5.7 cm respectively. The longitudinal and AP and transverse dimensions of the left kidney are 10.6 cm and 5.9 cm and 5.4 cm respectively. There is mild dilatation of the right renal pelvis. There is mild left-sided hydronephrosis. No renal mass or perinephric fluid collection is seen on either side. The urinary bladder wall is smooth and no intraluminal echodensities or masses are seen. Post void residual volume is 423 cc. IMPRESSION: Abnormal post void urinary bladder residual volume of 423 cc. Mild left-sided hydronephrosis. Minimal dilatation of the right renal pelvis. Both of these findings may be related to the distended urinary bladder.
[2016-09-21 23:00] VITALS: BP 127/60
[2016-09-22 03:00] VITALS: BP 145/65
[2016-09-22] MEDS: oxyCODONE/APAP 10/325 1 TAB TABLET PO SCH ×6 (04:00→20:52)
[2016-09-22] MEDS: oxyCODONE ER 15 MG TAB.ER.12H PO SCH ×2 (06:00→18:11)
[2016-09-22 07:00] VITALS: BP 175/95
[2016-09-22] MEDS: BUDESONIDE 0.5 MG/2 ML NEBU. NEB SCH ×2 (07:10→19:15)
[2016-09-22] MEDS: IPRATRPIUM/ALBUTEROL 0.5/2.5MG 3 ML NEBU. NEB SCH ×4 (07:10→19:14)
[2016-09-22 08:20] LABS: BASO # 0.1 x10^3/uL (0.0-0.2); BASO % 1 % (0-3); EOS % 2 % (0-3); HEMOGLOBIN 11.1 g/dL (12.0-15.5); LYMPH # 1.5 x10^3/uL (1.0-4.8); LYMPH % 17 % (24-48); MEAN CORPUSCULAR HEMOGLOBIN 26 pg (25-35); MEAN CORPUSCULAR HGB CONC 33 g/dL (31-37); MEAN CORPUSCULAR VOLUME 79 fL (79-100); MONO % 8 % (0-9); NEUT % 72 % (31-73); PLATELET COUNT 330 x10^3/uL (140-400); RED CELL DISTRIBUTION WIDTH 16.4 % (11.5-14.5); WHITE BLOOD COUNT 8.9 x10^3/uL (4.0-11.0)
--- NOTE | 2016-09-22 08:30 | PDOC ---
PROGRESS NOTES Subjective Subjective Pt. feeling ok Objective Objective Vital Signs Date Time Temp Pulse Resp B/P (MAP) Pulse Ox O2 Delivery O2 Flow Rate FiO2 09/22/16 07:11 98 Room Air 09/22/16 03:00 97.5 71 18 145/65 (91) 97.5 Intake and Output 09/22/16 07:00 Intake Total 700 ml Output Total 850 ml Balance -150 ml Intake Oral 700 ml Output Urine Total 850 ml # Voids 6 Physical Exam Physical Exam Pt. with elevated PVR of 425 cc Pt. states she has a history of urinary retention in the distant past-seen by urology in [facility] Plan of Care I discussed situation with the pt. and will plan to have patel placed to gravity for 1 week to allow bladder to regain tone and place pt. on flomax. Will have pt. f/u with Dr. Paula-urologist in [place] in 1 week for voiding trial Comment Review of Relevant I have reviewed the following items farzad (where applicable) has been applied. Labs Laboratory Tests Test 09/21/16 00:03 09/21/16 00:20 09/21/16 01:15 09/21/16 03:00 Magnesium Level 1.8 mg/dL (1.8-2.4) Urine Collection Type Unknown Urine Color Yellow Urine Clarity Clear Urine pH 7.5 Urine Specific [place] <=1.005 Urine Protein Negative mg/dL (NEG-TRACE) Urine Glucose (UA) Negative mg/dL (NEG) Urine Ketones (Stick) Negative mg/dL (NEG) Urine Blood Negative (NEG) Urine Nitrite Negative (NEG) Urine Bilirubin Negative (NEG) Urine Urobilinogen Dipstick 0.2 mg/dL (0.2 mg/dL) Urine Leukocyte Esterase Negative (NEG) Urine RBC 0 /HPF (0-2) Urine WBC 0 /HPF (0-4) Urine Squamous Epithelial Cells Few /LPF Urine Transitional Epithelial Cells Occ /LPF Urine Bacteria 0 /HPF (0-FEW) Serum Osmolality 245 mOsm/Kg (279-304) White Blood Count 10.1 x10^3/uL (4.0-11.0) Red Blood Count 4.02 x10^6/uL (3.50-5.40) Hemoglobin 10.2 g/dL (12.0-15.5) Hematocrit 30.8 % (36.0-47.0) Mean Corpuscular Volume 77 fL (79-100) Mean Corpuscular Hemoglobin 26 pg (25-35) Mean Corpuscular Hemoglobin Concent 33 g/dL (31-37) Red Cell Distribution Width 16.0 % (11.5-14.5) Platelet Count 289 x10^3/uL (140-400) Neutrophils (%) (Auto) 77 % (31-73) Lymphocytes (%) (Auto) 14 % (24-48) Monocytes (%) (Auto) 8 % (0-9) Eosinophils (%) (Auto) 1 % (0-3) Basophils (%) (Auto) 1 % (0-3) Neutrophils # (Auto) 7.7 x10^3uL (1.8-7.7) Lymphocytes # (Auto) 1.4 x10^3/uL (1.0-4.8) Monocytes # (Auto) 0.8 x10^3/uL (0.0-1.1) Eosinophils # (Auto) 0.1 x10^3/uL (0.0-0.7) Basophils # (Auto) 0.0 x10^3/uL (0.0-0.2) Sodium Level 122 mmol/L (136-145) Potassium Level 2.6 mmol/L (3.5-5.1) Chloride Level 86 mmol/L (98-107) Carbon Dioxide Level 26 mmol/L (21-32) Anion Gap 10 (6-14) Blood Urea Nitrogen 12 mg/dL (7-20) Creatinine 0.7 mg/dL (0.6-1.0) Estimated GFR (Cockcroft-Gault) 82.0 BUN/Creatinine Ratio 17 (6-20) Glucose Level 102 mg/dL (70-99) Calcium Level 8.9 mg/dL (8.5-10.1) Total Bilirubin 0.4 mg/dL (0.2-1.0) Aspartate Amino Transf (AST/SGOT) 21 U/L (15-37) Alanine Aminotransferase (ALT/SGPT) 21 U/L (14-59) Alkaline Phosphatase 73 U/L (46-116) AK-Oaq-C-Type Natriuretic Peptide 1312 pg/mL (0-124) Total Protein 5.9 g/dL (6.4-8.2) Albumin 2.9 g/dL (3.4-5.0) Albumin/Globulin Ratio 1.0 (1.0-1.7) Microbiology 09/21/16 Blood Culture - Preliminary, Resulted NO GROWTH AFTER 1 DAY Medications Current Medications Oxycodone/ Acetaminophen (Percocet 10/325) 1 tab Q4HRS PO ; Start 09/21/16 at 00 :00; Stop 09/21/16 at 00:00; Status DC Oxycodone HCl (OxyCONTIN) 30 mg Q12HR PO ; Start 09/21/16 at 09:00; Stop at 09:00; Status DC Sodium Chloride 1,000 ml @ 60 mls/hr [id number] IV Last administered on 22:52; Start 09/20/16 at 21:10 Ondansetron HCl (Zofran) 4 mg PRN Q6HRS PRN IV NAUSEA/VOMITING; Start 09/20/16 at 21:15 Acetaminophen (Tylenol) 650 mg PRN Q6HRS PRN PO FEVER; Start 09/20/16 at 21:15 Ceftriaxone Sodium 1 gm/ Sodium Chloride 50 ml @ 100 mls/hr Q24H IV ; Start at 21:15; Status UNV Oxycodone HCl (OxyCONTIN) 30 mg [id number] PO Last administered on 09/21/16 17:48; Start 09/21/16 at 06:30 Oxycodone/ Acetaminophen (Percocet 10/325) 1 tab Q4HRS PO Last administered on 09/21/16 21:22; Start 09/20/16 at 22:30 Levofloxacin/ Dextrose (Levaquin Per Pharmacy) 1 each PRN DAILY PRN MC SEE COMMENTS; Start 09/20/16 at 22:15 Levofloxacin/ Dextrose 100 ml @ 100 mls/hr 1X ONCE IV Last administered on 00:24; Start 09/20/16 at 23:00; Stop 09/20/16 at 23:59; Status DC Levofloxacin/ Dextrose 50 ml @ 50 mls/hr Q24H IV Last administered on 23:29; Start 09/21/16 at 23:00 Potassium Chloride 100 ml @ 100 mls/hr Q1H IV Last administered on 09/21/16 10:37; Start 09/21/16 at 07:00; Stop 09/21/16 at 10:59; Status DC Potassium Chloride 100 ml @ 100 mls/hr Q1H IV ; Start 09/21/16 at 09:00; Stop 09/21/16 at 12:59; Status Cancel Cetirizine HCl (ZyrTEC) 10 mg DAILY PO Last administered on 09/21/16 09:51; Start 09/21/16 at 09:30 Clonazepam (KlonoPIN) 0.5 mg DAILY PO Last administered on 09/21/16 09:53; Start 09/21/16 at 09:30 Cyclobenzaprine HCl (Flexeril) 10 mg TID PO Last administered on 09/21/16 21: 22; Start 09/21/16 at 09:30 Fentanyl (Duragesic 100mcg/Hr Patch) 1 patch Q72H TD Last administered on 09:51; Start 09/21/16 at 09:30 Olanzapine (ZyPREXA) 5 mg DAILY PO Last administered on 09/21/16 09:53; Start 09/21/16 at 09:30 Roflumilast (Daliresp) 500 mcg DAILY PO Last administered on 09/21/16 09:53; Start 09/21/16 at 09:30 Sennosides (Senna) 8.6 mg DAILY PO Last administered on 09/21/16 09:52; Start 09/21/16 at 09:30 Non-Formulary Medication 1 puff BID IH ; Start 09/21/16 at 09:00; Status UNV Pantoprazole Sodium (Protonix) 40 mg DAILYAC PO Last administered on 09/21/16 09:52; Start 09/21/16 at 09:30 Non-Formulary Medication 1 cap DAILY IH ; Start 09/21/16 at 09:00; Status UNV Albuterol/ Ipratropium (Duoneb) 3 ml RTQID NEB Last administered on 09/22/16 07:10; Start 09/21/16 at 09:30 Albuterol/ Ipratropium (Duoneb) 3 ml RTQID NEB ; Start 09/21/16 at 12:00; Status UNV Budesonide (Pulmicort) 0.5 mg RTBID NEB Last administered on 09/22/16 07:10; Start 09/21/16 at 09:30 Albuterol/ Ipratropium (Duoneb) 3 ml RTQID NEB ; Start 09/21/16 at 12:00; Status Cancel Albuterol Sulfate (Ventolin Neb Soln) 2.5 mg PRN Q2HR PRN NEB SHORTNESS OF BREATH; Start 09/21/16 at 10:00 Guaifenesin (Mucinex) 600 mg BID PO Last administered on 09/21/16 21:22; Start 09/21/16 at 11:00 Sodium Chloride 500 ml @ 30 mls/hr 1X ONCE IV Last administered on 09/21/16 13:14; Start 09/21/16 at 12:00; Stop 09/22/16 at 04:39; Status DC Enoxaparin Sodium (Lovenox 40mg Syringe) 40 mg Q24H SQ Last administered on 16:31; Start 09/21/16 at 16:00 Active Scripts Active Reported Albuterol Sulfate Neb Soln (Albuterol Sulfate) 2.5 Mg/3 Ml Vial.neb 2.5 Mg NEB Q6HRS Combivent Respimat Inhal (Ipratropium/Albuterol Sulfate) 4 Gm Aer.w.adap 2 Inh IH QID Glucosamine Chondroitin Tab (Gluc Chung/Chondro Chung A/Vit C/Mn) 1 Each Tablet 1 Each PO Aloe Vera 25 Mg Capsule 25 Mg PO BID [potassium bicarb] 600 Intlu PO Azelastine Hcl 137 Mcg/0.137 Ml [place].pump 2 [place] NS BID Cetirizine Hcl 10 Mg Tablet 1 Tab PO DAILY Omeprazole 40 Mg Capsule.dr 1 Cap PO DAILY Celebrex (Celecoxib) 200 Mg Capsule 200 Mg PO BID 30 Days Oxycontin (Oxycodone HCl) 30 Mg Tab.er.12h 30 Mg PO BID Multivitamins (Multivitamin) 1 Each Tablet 1 Tab PO DAILY FENTANYL 100mcg/hr (Fentanyl) 1 Each Patch.td72 1 Patch TD Q72H Daliresp (Roflumilast) 500 Mcg Tablet 1 Tab PO DAILY Amitiza (Lubiprostone) 24 Mcg Capsule 1 Cap PO BID Oxycodone-Acetaminophen 10-325 (Oxycodone Hcl/Acetaminophen) 1 Each Tablet 1 Tab PO Q4HRS Cyclobenzaprine Hcl 10 Mg Tablet 1 Tab PO TID Nasonex (Mometasone Furoate) 17 Gm [place].pump 2 Sprays NS DAILY Spiriva (Tiotropium [place]) 18 Mcg Cap.w.dev 1 Cap IH DAILY Advair 500-50 Diskus (Fluticasone/Salmeterol) 1 Each Disk.w.dev 1 Puff IH BID Clonazepam 0.5 Mg Tablet 1 Tab PO DAILY Olanzapine 2.5 Mg Tablet 5 Mg PO DAILY Prednisone 2.5 Mg Tablet 5 Mg PO DAILY Super B Complex (Vitamin B Complex & Vit C No.4) 150 Mg Tablet 150 Mg PO Green Tea (Green Tea [place] Extract) 1 Each Capsule 1 Each PO BID Vitamin A 8,000 Unit Capsule 8,000 Unit PO Vitamin C (Ascorbic Acid) 1,000 Mg Tablet 1,000 Mg PO Vitamin E (Vitamin E Mixed) 400 Unit Capsule 400 Unit PO Vitamin D (Cholecalciferol (Vitamin D3)) 1,000 Unit Capsule 1,000 Unit PO Calcium (Calcium Carbonate) 600 Mg Tablet 1,200 Mg PO Vegetable Laxative (Sennosides) 8.6 Mg Tablet 8.6 Mg PO Evista (Raloxifene Hcl) 60 Mg Tablet 60 Mg PO DAILY Diovan Hct 160-12.5 Mg Tab (Valsartan/Hydrochlorothiazide) 1 Each Tablet 1 Each PO Vitals/I & O Vital Sign - Last 24 Hours 09/21/16 09/21/16 09/21/16 09/21/16 09:00 09:51 10:37 10:58 Temp 98.0 98.0 Pulse 87 Resp 16 17 B/P (MAP) 138/69 (92) Pulse Ox 98 97 O2 Delivery Room Air Room Air Room Air Room Air 09/21/16 09/21/16 09/21/16 09/21/16 11:17 11:57 13:51 15:00 Temp 98.1 98.1 Pulse 86 Resp 18 18 19 B/P (MAP) 134/76 (95) Pulse Ox 98 96 O2 Delivery Room Air Room Air Room Air Room Air 09/21/16 09/21/16 09/21/16 09/21/16 15:26 16:33 16:56 17:37 Resp 16 18 Pulse Ox 98 98 98 O2 Delivery Room Air Room Air Room Air Room Air 09/21/16 09/21/16 09/21/16 09/21/16 17:48 19:00 20:00 21:22 Temp 97.9 97.9 Pulse 88 Resp 18 18 B/P (MAP) 111/54 (73) Pulse Ox 98 93 98 O2 Delivery Room Air Room Air Room Air Room Air 09/21/16 09/22/16 09/22/16 09/22/16 23:00 00:00 03:00 04:00 Temp 97.7 97.5 97.7 97.5 Pulse 75 71 Resp 18 18 B/P (MAP) 127/60 (82) 145/65 (91) Pulse Ox 90 90 97 97 O2 Delivery Room Air Room Air Room Air Room Air 09/22/16 07:11 Pulse Ox 98 O2 Delivery Room Air Intake and Output 09/21/16 09/21/16 09/22/16 15:00 23:00 07:00 Intake Total 300 ml 400 ml Output Total 500 ml 350 ml Balance -200 ml 400 ml -350 ml DANIEL CONTRERAS MD Sep 22, 2016 08:30
[2016-09-22] MEDS: CYCLOBENZAPRINE 10 MG TABLET. PO SCH ×3 (08:51→20:52)
[2016-09-22] MEDS: ROFLUMILAST 500 MCG TABLET. PO SCH (08:51)
[2016-09-22] MEDS: CETIRIZINE HCL 10 MG TABLET. PO SCH (08:51)
[2016-09-22] MEDS: PANTOPRAZOLE 40 MG TABLET.DR. PO SCH (08:51)
[2016-09-22] MEDS: clonazePAM 0.5 MG TABLET PO SCH (08:51)
[2016-09-22] MEDS: OLANZapine 2.5 MG TABLET PO SCH (08:52)
[2016-09-22] MEDS: SENNOSIDES 8.6 MG TABLET PO SCH (08:52)
[2016-09-22] MEDS: TAMSULOSIN 0.4 MG CAP.ER.24H. PO SCH (09:03)
[2016-09-22 09:15] LABS: CREATININE 0.7 mg/dL (0.6-1.0)
[2016-09-22 09:28] LABS: POTASSIUM 2.8 mmol/L (3.5-5.1)
[2016-09-22] MEDS ORDERED: POTASSIUM CHLORIDE 20 MEQ TABLET.ER. PO ONE (10:00)
--- NOTE | 2016-09-22 11:20 | PDOC ---
PULMONARY PROGRESS NOTES Subjective cough much improved Vitals Vital Signs Date Time Temp Pulse Resp B/P (MAP) Pulse Ox O2 Delivery O2 Flow Rate FiO2 09/22/16 08:52 98 Room Air 09/22/16 07:00 97.4 83 18 175/95 (121) 97.4 General: Alert, No acute distress Lungs: Other (decrease bs) Cardiovascular: S1, S2 Abdomen: Soft, Other Neuro Exam: Alert Extremities: No Edema Skin: Warm Labs Laboratory Tests Test 09/21/16 00:03 09/21/16 00:20 09/21/16 01:15 09/21/16 03:00 Magnesium Level 1.8 mg/dL (1.8-2.4) Urine Collection Type Unknown Urine Color Yellow Urine Clarity Clear Urine pH 7.5 Urine Specific [place] <=1.005 Urine Protein Negative mg/dL (NEG-TRACE) Urine Glucose (UA) Negative mg/dL (NEG) Urine Ketones (Stick) Negative mg/dL (NEG) Urine Blood Negative (NEG) Urine Nitrite Negative (NEG) Urine Bilirubin Negative (NEG) Urine Urobilinogen Dipstick 0.2 mg/dL (0.2 mg/dL) Urine Leukocyte Esterase Negative (NEG) Urine RBC 0 /HPF (0-2) Urine WBC 0 /HPF (0-4) Urine Squamous Epithelial Cells Few /LPF Urine Transitional Epithelial Cells Occ /LPF Urine Bacteria 0 /HPF (0-FEW) Serum Osmolality 245 mOsm/Kg (279-304) White Blood Count 10.1 x10^3/uL (4.0-11.0) Red Blood Count 4.02 x10^6/uL (3.50-5.40) Hemoglobin 10.2 g/dL (12.0-15.5) Hematocrit 30.8 % (36.0-47.0) Mean Corpuscular Volume 77 fL (79-100) Mean Corpuscular Hemoglobin 26 pg (25-35) Mean Corpuscular Hemoglobin Concent 33 g/dL (31-37) Red Cell Distribution Width 16.0 % (11.5-14.5) Platelet Count 289 x10^3/uL (140-400) Neutrophils (%) (Auto) 77 % (31-73) Lymphocytes (%) (Auto) 14 % (24-48) Monocytes (%) (Auto) 8 % (0-9) Eosinophils (%) (Auto) 1 % (0-3) Basophils (%) (Auto) 1 % (0-3) Neutrophils # (Auto) 7.7 x10^3uL (1.8-7.7) Lymphocytes # (Auto) 1.4 x10^3/uL (1.0-4.8) Monocytes # (Auto) 0.8 x10^3/uL (0.0-1.1) Eosinophils # (Auto) 0.1 x10^3/uL (0.0-0.7) Basophils # (Auto) 0.0 x10^3/uL (0.0-0.2) Sodium Level 122 mmol/L (136-145) Potassium Level 2.6 mmol/L (3.5-5.1) Chloride Level 86 mmol/L (98-107) Carbon Dioxide Level 26 mmol/L (21-32) Anion Gap 10 (6-14) Blood Urea Nitrogen 12 mg/dL (7-20) Creatinine 0.7 mg/dL (0.6-1.0) Estimated GFR (Cockcroft-Gault) 82.0 BUN/Creatinine Ratio 17 (6-20) Glucose Level 102 mg/dL (70-99) Calcium Level 8.9 mg/dL (8.5-10.1) Total Bilirubin 0.4 mg/dL (0.2-1.0) Aspartate Amino Transf (AST/SGOT) 21 U/L (15-37) Alanine Aminotransferase (ALT/SGPT) 21 U/L (14-59) Alkaline Phosphatase 73 U/L (46-116) RA-Nld-J-Type Natriuretic Peptide 1312 pg/mL (0-124) Total Protein 5.9 g/dL (6.4-8.2) Albumin 2.9 g/dL (3.4-5.0) Albumin/Globulin Ratio 1.0 (1.0-1.7) Test 09/22/16 08:00 White Blood Count 8.9 x10^3/uL (4.0-11.0) Red Blood Count 4.30 x10^6/uL (3.50-5.40) Hemoglobin 11.1 g/dL (12.0-15.5) Hematocrit 34.0 % (36.0-47.0) Mean Corpuscular Volume 79 fL (79-100) Mean Corpuscular Hemoglobin 26 pg (25-35) Mean Corpuscular Hemoglobin Concent 33 g/dL (31-37) Red Cell Distribution Width 16.4 % (11.5-14.5) Platelet Count 330 x10^3/uL (140-400) Neutrophils (%) (Auto) 72 % (31-73) Lymphocytes (%) (Auto) 17 % (24-48) Monocytes (%) (Auto) 8 % (0-9) Eosinophils (%) (Auto) 2 % (0-3) Basophils (%) (Auto) 1 % (0-3) Neutrophils # (Auto) 6.4 x10^3uL (1.8-7.7) Lymphocytes # (Auto) 1.5 x10^3/uL (1.0-4.8) Monocytes # (Auto) 0.8 x10^3/uL (0.0-1.1) Eosinophils # (Auto) 0.1 x10^3/uL (0.0-0.7) Basophils # (Auto) 0.1 x10^3/uL (0.0-0.2) Sodium Level 137 mmol/L (136-145) Potassium Level 2.8 mmol/L (3.5-5.1) Chloride Level 104 mmol/L (98-107) Carbon Dioxide Level 22 mmol/L (21-32) Anion Gap 11 (6-14) Blood Urea Nitrogen 10 mg/dL (7-20) Creatinine 0.7 mg/dL (0.6-1.0) Estimated GFR (Cockcroft-Gault) 82.0 Glucose Level 90 mg/dL (70-99) Calcium Level 9.0 mg/dL (8.5-10.1) Magnesium Level 2.0 mg/dL (1.8-2.4) Thyroid Stimulating Hormone (TSH) 1.751 uIU/mL (0.358-3.74) Laboratory Tests Test 09/22/16 08:00 White Blood Count 8.9 x10^3/uL (4.0-11.0) Red Blood Count 4.30 x10^6/uL (3.50-5.40) Hemoglobin 11.1 g/dL (12.0-15.5) Hematocrit 34.0 % (36.0-47.0) Mean Corpuscular Volume 79 fL (79-100) Mean Corpuscular Hemoglobin 26 pg (25-35) Mean Corpuscular Hemoglobin Concent 33 g/dL (31-37) Red Cell Distribution Width 16.4 % (11.5-14.5) Platelet Count 330 x10^3/uL (140-400) Neutrophils (%) (Auto) 72 % (31-73) Lymphocytes (%) (Auto) 17 % (24-48) Monocytes (%) (Auto) 8 % (0-9) Eosinophils (%) (Auto) 2 % (0-3) Basophils (%) (Auto) 1 % (0-3) Neutrophils # (Auto) 6.4 x10^3uL (1.8-7.7) Lymphocytes # (Auto) 1.5 x10^3/uL (1.0-4.8) Monocytes # (Auto) 0.8 x10^3/uL (0.0-1.1) Eosinophils # (Auto) 0.1 x10^3/uL (0.0-0.7) Basophils # (Auto) 0.1 x10^3/uL (0.0-0.2) Sodium Level 137 mmol/L (136-145) Potassium Level 2.8 mmol/L (3.5-5.1) Chloride Level 104 mmol/L (98-107) Carbon Dioxide Level 22 mmol/L (21-32) Anion Gap 11 (6-14) Blood Urea Nitrogen 10 mg/dL (7-20) Creatinine 0.7 mg/dL (0.6-1.0) Estimated GFR (Cockcroft-Gault) 82.0 Glucose Level 90 mg/dL (70-99) Calcium Level 9.0 mg/dL (8.5-10.1) Magnesium Level 2.0 mg/dL (1.8-2.4) Thyroid Stimulating Hormone (TSH) 1.751 uIU/mL (0.358-3.74) Medications Active Scripts Medications Dose Route/Sig Max Daily Dose Days Date Category Albuterol Sulfate Neb Soln (Albuterol Sulfate) 2.5 Mg/3 Ml Vial.neb 2.5 Mg NEB Q6HRS 09/20/16 Reported Combivent Respimat Inhal (Ipratropium/Albuterol Sulfate) 4 Gm Aer.w.adap 2 Inh IH QID 09/20/16 Reported Glucosamine Chondroitin Tab (Gluc Chung/Chondro Chung A/Vit C/Mn) 1 Each Tablet 1 Each PO 09/20/16 Reported Aloe Vera 25 Mg Capsule 25 Mg PO BID 09/20/16 Reported [potassium bicarb] 600 Intlu PO 09/20/16 Reported Azelastine Hcl 137 Mcg/0.137 Ml [place].pump 2 [place] NS BID 09/20/16 Reported Cetirizine Hcl 10 Mg Tablet 1 Tab PO DAILY 09/20/16 Reported Omeprazole 40 Mg Capsule.dr 1 Cap PO DAILY 09/20/16 Reported Celebrex (Celecoxib) 200 Mg Capsule 200 Mg PO BID 30 09/20/16 Reported Oxycontin (Oxycodone HCl) 30 Mg Tab.er.12h 30 Mg PO BID 02/04/16 Reported Multivitamins (Multivitamin) 1 Each Tablet 1 Tab PO DAILY 05/29/15 Reported FENTANYL 100mcg/hr (Fentanyl) 1 Each Patch.td72 1 Patch TD Q72H 05/29/15 Reported Daliresp (Roflumilast) 500 Mcg Tablet 1 Tab PO DAILY 11/20/14 Reported Amitiza (Lubiprostone) 24 Mcg Capsule 1 Cap PO BID 11/20/14 Reported Oxycodone-Acetaminophen 10-325 (Oxycodone Hcl/Acetaminophen) 1 Each Tablet 1 Tab PO Q4HRS 11/20/14 Reported Cyclobenzaprine Hcl 10 Mg Tablet 1 Tab PO TID 11/20/14 Reported Nasonex (Mometasone Furoate) 17 Gm [place].pump 2 Sprays NS DAILY 11/20/14 Reported Spiriva (Tiotropium [place]) 18 Mcg Cap.w.dev 1 Cap IH DAILY 11/20/14 Reported Advair 500-50 Diskus (Fluticasone/Salmeterol) 1 Each Disk.w.dev 1 Puff IH BID 11/20/14 Reported Clonazepam 0.5 Mg Tablet 1 Tab PO DAILY 11/20/14 Reported Olanzapine 2.5 Mg Tablet 5 Mg PO DAILY 11/20/14 Reported Prednisone 2.5 Mg Tablet 5 Mg PO DAILY 10/23/14 Reported Super B Complex (Vitamin B Complex & Vit C No.4) 150 Mg Tablet 150 Mg PO 07/19/13 Reported Green Tea (Green Tea [place] Extract) 1 Each Capsule 1 Each PO BID 07/19/13 Reported Vitamin A 8,000 Unit Capsule 8,000 Unit PO 07/19/13 Reported Vitamin C (Ascorbic Acid) 1,000 Mg Tablet 1,000 Mg PO 07/19/13 Reported Vitamin E (Vitamin E Mixed) 400 Unit Capsule 400 Unit PO 07/19/13 Reported Vitamin D (Cholecalciferol (Vitamin D3)) 1,000 Unit Capsule 1,000 Unit PO 07/19/13 Reported Calcium (Calcium Carbonate) 600 Mg Tablet 1,200 Mg PO 07/19/13 Reported Vegetable Laxative (Sennosides) 8.6 Mg Tablet 8.6 Mg PO 07/19/13 Reported Evista (Raloxifene Hcl) 60 Mg Tablet 60 Mg PO DAILY 07/19/13 Reported Diovan Hct 160-12.5 Mg Tab (Valsartan/Hydrochlorothiazide) 1 Each Tablet 1 Each PO 07/19/13 Reported Impression . 1. Mild non-specific fibrosotic changes seen on ct chest. no intervention 2. COPD 3. Chronic persistent cough due to above with recent worsening due to acute bronchitis 4. Acute bronchitis 5. chronic steroid dependence Plan . 1. ct chest with mild non-specific fibrosis/ no intervention 2. Nebs 3. cough suppressants 4. antibiotics 5. clinically better 6. steroids taper 7. possible home in [place]E LEVIN MD Sep 22, 2016 11:20
[2016-09-22] MEDS: POTASSIUM CHLORIDE 10MEQ 100 ML IV SCH ×4 (12:00→15:49)
--- NOTE | 2016-09-22 12:58 | PDOC ---
Renal-Progress Notes Subjective Notes Notes FEELING BETTER, HER SHAKES ARE BETTER History of Present Illness Hx of present illness BETTER Vitals Vitals Vital Signs Date Time Temp Pulse Resp B/P (MAP) Pulse Ox O2 Delivery O2 Flow Rate FiO2 09/22/16 12:27 16 98 Room Air 09/22/16 07:00 97.4 83 175/95 (121) 97.4 Weight Weight [ ] I.O. Intake and Output Intake and Output 09/22/16 07:00 Intake Total 700 ml Output Total 850 ml Balance -150 ml Intake Oral 700 ml Output Urine Total 850 ml # Voids 6 Labs Labs Laboratory Tests Test 09/22/16 08:00 White Blood Count 8.9 x10^3/uL (4.0-11.0) Red Blood Count 4.30 x10^6/uL (3.50-5.40) Hemoglobin 11.1 g/dL (12.0-15.5) Hematocrit 34.0 % (36.0-47.0) Mean Corpuscular Volume 79 fL (79-100) Mean Corpuscular Hemoglobin 26 pg (25-35) Mean Corpuscular Hemoglobin Concent 33 g/dL (31-37) Red Cell Distribution Width 16.4 % (11.5-14.5) Platelet Count 330 x10^3/uL (140-400) Neutrophils (%) (Auto) 72 % (31-73) Lymphocytes (%) (Auto) 17 % (24-48) Monocytes (%) (Auto) 8 % (0-9) Eosinophils (%) (Auto) 2 % (0-3) Basophils (%) (Auto) 1 % (0-3) Neutrophils # (Auto) 6.4 x10^3uL (1.8-7.7) Lymphocytes # (Auto) 1.5 x10^3/uL (1.0-4.8) Monocytes # (Auto) 0.8 x10^3/uL (0.0-1.1) Eosinophils # (Auto) 0.1 x10^3/uL (0.0-0.7) Basophils # (Auto) 0.1 x10^3/uL (0.0-0.2) Sodium Level 137 mmol/L (136-145) Potassium Level 2.8 mmol/L (3.5-5.1) Chloride Level 104 mmol/L (98-107) Carbon Dioxide Level 22 mmol/L (21-32) Anion Gap 11 (6-14) Blood Urea Nitrogen 10 mg/dL (7-20) Creatinine 0.7 mg/dL (0.6-1.0) Estimated GFR (Cockcroft-Gault) 82.0 Glucose Level 90 mg/dL (70-99) Calcium Level 9.0 mg/dL (8.5-10.1) Magnesium Level 2.0 mg/dL (1.8-2.4) Thyroid Stimulating Hormone (TSH) 1.751 uIU/mL (0.358-3.74) Micro Micro Microbiology 09/21/16 Blood Culture - Preliminary, Resulted NO GROWTH AFTER 1 DAY 09/22/16 Gram Stain - Final, Complete Review of Systems Constitutional: yes: alert, oriented Ears/Nose/Throat: Yes: no symptom reported Eyes: Yes: no symptom reported Pulmonary: Yes no symptom reported Cardiovascular: Yes no symptom reported Psychiatric/Neurological: Yes: tremors Physical Exam General Appearance: no apparent distress Skin: warm Heart: S1S2 Abdomen: soft, bowel sounds present Genitourinary: bladder flat Neurology: alert Musculoskeletal: Weakness Assessment Assessment IMP HYPONATREMIA-IMPROVED HYPOKALEMIA PLAN CONT SAME AVOID HCTZ YESENIA MCDONALD MD Sep 22, 2016 12:58
--- NOTE | 2016-09-22 13:19 | PDOC2 ---
UROLOGY CONSULT Date of Admission DATE: 09/22/16 TIME: 13:17 ROS ROS: RESPIRATORY: Shortness of breath denies. Cough denies. UROLOGY: Denies blood in urine. Denies difficulty urinating Current Medications Current Medications Oxycodone/ Acetaminophen (Percocet 10/325) 1 tab Q4HRS PO ; Start 09/21/16 at 00 :00; Stop 09/21/16 at 00:00; Status DC Oxycodone HCl (OxyCONTIN) 30 mg Q12HR PO ; Start 09/21/16 at 09:00; Stop at 09:00; Status DC Sodium Chloride 1,000 ml @ 60 mls/hr [id number] IV Last administered on 22:52; Start 09/20/16 at 21:10 Ondansetron HCl (Zofran) 4 mg PRN Q6HRS PRN IV NAUSEA/VOMITING; Start 09/20/16 at 21:15 Acetaminophen (Tylenol) 650 mg PRN Q6HRS PRN PO FEVER; Start 09/20/16 at 21:15 Ceftriaxone Sodium 1 gm/ Sodium Chloride 50 ml @ 100 mls/hr Q24H IV ; Start at 21:15; Status UNV Oxycodone HCl (OxyCONTIN) 30 mg [id number] PO Last administered on 09/21/16 17:48; Start 09/21/16 at 06:30 Oxycodone/ Acetaminophen (Percocet 10/325) 1 tab Q4HRS PO Last administered on 09/22/16 12:27; Start 09/20/16 at 22:30 Levofloxacin/ Dextrose (Levaquin Per Pharmacy) 1 each PRN DAILY PRN MC SEE COMMENTS; Start 09/20/16 at 22:15 Levofloxacin/ Dextrose 100 ml @ 100 mls/hr 1X ONCE IV Last administered on 00:24; Start 09/20/16 at 23:00; Stop 09/20/16 at 23:59; Status DC Levofloxacin/ Dextrose 50 ml @ 50 mls/hr Q24H IV Last administered on 23:29; Start 09/21/16 at 23:00 Potassium Chloride 100 ml @ 100 mls/hr Q1H IV Last administered on 09/21/16 10:37; Start 09/21/16 at 07:00; Stop 09/21/16 at 10:59; Status DC Potassium Chloride 100 ml @ 100 mls/hr Q1H IV ; Start 09/21/16 at 09:00; Stop 09/21/16 at 12:59; Status Cancel Cetirizine HCl (ZyrTEC) 10 mg DAILY PO Last administered on 09/22/16 08:51; Start 09/21/16 at 09:30 Clonazepam (KlonoPIN) 0.5 mg DAILY PO Last administered on 09/22/16 08:51; Start 09/21/16 at 09:30 Cyclobenzaprine HCl (Flexeril) 10 mg TID PO Last administered on 09/22/16 08: 51; Start 09/21/16 at 09:30 Fentanyl (Duragesic 100mcg/Hr Patch) 1 patch Q72H TD Last administered on 09:51; Start 09/21/16 at 09:30 Olanzapine (ZyPREXA) 5 mg DAILY PO Last administered on 09/22/16 08:52; Start 09/21/16 at 09:30 Roflumilast (Daliresp) 500 mcg DAILY PO Last administered on 09/22/16 08:51; Start 09/21/16 at 09:30 Sennosides (Senna) 8.6 mg DAILY PO Last administered on 09/22/16 08:52; Start 09/21/16 at 09:30 Non-Formulary Medication 1 puff BID IH ; Start 09/21/16 at 09:00; Status UNV Pantoprazole Sodium (Protonix) 40 mg DAILYAC PO Last administered on 09/22/16 08:51; Start 09/21/16 at 09:30 Non-Formulary Medication 1 cap DAILY IH ; Start 09/21/16 at 09:00; Status UNV Albuterol/ Ipratropium (Duoneb) 3 ml RTQID NEB Last administered on 09/22/16 11:18; Start 09/21/16 at 09:30 Albuterol/ Ipratropium (Duoneb) 3 ml RTQID NEB ; Start 09/21/16 at 12:00; Status UNV Budesonide (Pulmicort) 0.5 mg RTBID NEB Last administered on 09/22/16 07:10; Start 09/21/16 at 09:30 Albuterol/ Ipratropium (Duoneb) 3 ml RTQID NEB ; Start 09/21/16 at 12:00; Status Cancel Albuterol Sulfate (Ventolin Neb Soln) 2.5 mg PRN Q2HR PRN NEB SHORTNESS OF BREATH; Start 09/21/16 at 10:00 Guaifenesin (Mucinex) 600 mg BID PO Last administered on 09/22/16 08:52; Start 09/21/16 at 11:00 Sodium Chloride 500 ml @ 30 mls/hr 1X ONCE IV Last administered on 09/21/16 13:14; Start 09/21/16 at 12:00; Stop 09/22/16 at 04:39; Status DC Enoxaparin Sodium (Lovenox 40mg Syringe) 40 mg Q24H SQ Last administered on 16:31; Start 09/21/16 at 16:00 Tamsulosin HCl (Flomax) 0.4 mg DAILY PO Last administered on 09/22/16 09:03; Start 09/22/16 at 09:00 Potassium Chloride (Klor-Con) 40 meq 1X ONCE PO Last administered on 11:59; Start 09/22/16 at 10:00; Stop 09/22/16 at 10:01; Status DC Potassium Chloride 100 ml @ 100 mls/hr Q1H IV Last administered on 09/22/16 12:29; Start 09/22/16 at 10:00; Stop 09/22/16 at 13:59 Active Scripts Active Reported Albuterol Sulfate Neb Soln (Albuterol Sulfate) 2.5 Mg/3 Ml Vial.neb 2.5 Mg NEB Q6HRS Combivent Respimat Inhal (Ipratropium/Albuterol Sulfate) 4 Gm Aer.w.adap 2 Inh IH QID Glucosamine Chondroitin Tab (Gluc Chung/Chondro Chung A/Vit C/Mn) 1 Each Tablet 1 Each PO Aloe Vera 25 Mg Capsule 25 Mg PO BID [potassium bicarb] 600 Intlu PO Azelastine Hcl 137 Mcg/0.137 Ml [place].pump 2 [place] NS BID Cetirizine Hcl 10 Mg Tablet 1 Tab PO DAILY Omeprazole 40 Mg Capsule.dr 1 Cap PO DAILY Celebrex (Celecoxib) 200 Mg Capsule 200 Mg PO BID 30 Days Oxycontin (Oxycodone HCl) 30 Mg Tab.er.12h 30 Mg PO BID Multivitamins (Multivitamin) 1 Each Tablet 1 Tab PO DAILY FENTANYL 100mcg/hr (Fentanyl) 1 Each Patch.td72 1 Patch TD Q72H Daliresp (Roflumilast) 500 Mcg Tablet 1 Tab PO DAILY Amitiza (Lubiprostone) 24 Mcg Capsule 1 Cap PO BID Oxycodone-Acetaminophen 10-325 (Oxycodone Hcl/Acetaminophen) 1 Each Tablet 1 Tab PO Q4HRS Cyclobenzaprine Hcl 10 Mg Tablet 1 Tab PO TID Nasonex (Mometasone Furoate) 17 Gm [place].pump 2 Sprays NS DAILY Spiriva (Tiotropium [place]) 18 Mcg Cap.w.dev 1 Cap IH DAILY Advair 500-50 Diskus (Fluticasone/Salmeterol) 1 Each Disk.w.dev 1 Puff IH BID Clonazepam 0.5 Mg Tablet 1 Tab PO DAILY Olanzapine 2.5 Mg Tablet 5 Mg PO DAILY Prednisone 2.5 Mg Tablet 5 Mg PO DAILY Super B Complex (Vitamin B Complex & Vit C No.4) 150 Mg Tablet 150 Mg PO Green Tea (Green Tea Robinette Extract) 1 Each Capsule 1 Each PO BID Vitamin A 8,000 Unit Capsule 8,000 Unit PO Vitamin C (Ascorbic Acid) 1,000 Mg Tablet 1,000 Mg PO Vitamin E (Vitamin E Mixed) 400 Unit Capsule 400 Unit PO Vitamin D (Cholecalciferol (Vitamin D3)) 1,000 Unit Capsule 1,000 Unit PO Calcium (Calcium Carbonate) 600 Mg Tablet 1,200 Mg PO Vegetable Laxative (Sennosides) 8.6 Mg Tablet 8.6 Mg PO Evista (Raloxifene Hcl) 60 Mg Tablet 60 Mg PO DAILY Diovan Hct 160-12.5 Mg Tab (Valsartan/Hydrochlorothiazide) 1 Each Tablet 1 Each PO Allergies: Coded Allergies: penicillin (Verified Allergy, Severe, hives, 09/20/16) anaphylactic codeine (Verified Allergy, Intermediate, elevated hr, 05/29/15) Physical Examination PHYSICAL EXAMINATION: GENERAL: Gen. appearance: No acute distress. Mood/affect: Pleasant. HEENT: Head: Normocephalic, atraumatic. Airway Impairment: No. CHEST: Shape and expansion: Normal. Expansion: Normal. SKIN: General: Warm. Color: Good. GENITOURINARY:External genitalia - wnl. NEUROLOGICAL: Mental status: Alert and oriented 3. Language: Normal. VITALS Vital Signs Date Time Temp Pulse Resp B/P (MAP) Pulse Ox O2 Delivery O2 Flow Rate FiO2 09/22/16 12:27 16 98 Room Air 09/22/16 07:00 97.4 83 175/95 (121) 97.4 Labs Laboratory Tests Test 09/21/16 00:03 09/21/16 00:20 09/21/16 01:15 09/21/16 03:00 Magnesium Level 1.8 mg/dL (1.8-2.4) Urine Collection Type Unknown Urine Color Yellow Urine Clarity Clear Urine pH 7.5 Urine Specific [place] <=1.005 Urine Protein Negative mg/dL (NEG-TRACE) Urine Glucose (UA) Negative mg/dL (NEG) Urine Ketones (Stick) Negative mg/dL (NEG) Urine Blood Negative (NEG) Urine Nitrite Negative (NEG) Urine Bilirubin Negative (NEG) Urine Urobilinogen Dipstick 0.2 mg/dL (0.2 mg/dL) Urine Leukocyte Esterase Negative (NEG) Urine RBC 0 /HPF (0-2) Urine WBC 0 /HPF (0-4) Urine Squamous Epithelial Cells Few /LPF Urine Transitional Epithelial Cells Occ /LPF Urine Bacteria 0 /HPF (0-FEW) Serum Osmolality 245 mOsm/Kg (279-304) White Blood Count 10.1 x10^3/uL (4.0-11.0) Red Blood Count 4.02 x10^6/uL (3.50-5.40) Hemoglobin 10.2 g/dL (12.0-15.5) Hematocrit 30.8 % (36.0-47.0) Mean Corpuscular Volume 77 fL (79-100) Mean Corpuscular Hemoglobin 26 pg (25-35) Mean Corpuscular Hemoglobin Concent 33 g/dL (31-37) Red Cell Distribution Width 16.0 % (11.5-14.5) Platelet Count 289 x10^3/uL (140-400) Neutrophils (%) (Auto) 77 % (31-73) Lymphocytes (%) (Auto) 14 % (24-48) Monocytes (%) (Auto) 8 % (0-9) Eosinophils (%) (Auto) 1 % (0-3) Basophils (%) (Auto) 1 % (0-3) Neutrophils # (Auto) 7.7 x10^3uL (1.8-7.7) Lymphocytes # (Auto) 1.4 x10^3/uL (1.0-4.8) Monocytes # (Auto) 0.8 x10^3/uL (0.0-1.1) Eosinophils # (Auto) 0.1 x10^3/uL (0.0-0.7) Basophils # (Auto) 0.0 x10^3/uL (0.0-0.2) Sodium Level 122 mmol/L (136-145) Potassium Level 2.6 mmol/L (3.5-5.1) Chloride Level 86 mmol/L (98-107) Carbon Dioxide Level 26 mmol/L (21-32) Anion Gap 10 (6-14) Blood Urea Nitrogen 12 mg/dL (7-20) Creatinine 0.7 mg/dL (0.6-1.0) Estimated GFR (Cockcroft-Gault) 82.0 BUN/Creatinine Ratio 17 (6-20) Glucose Level 102 mg/dL (70-99) Calcium Level 8.9 mg/dL (8.5-10.1) Total Bilirubin 0.4 mg/dL (0.2-1.0) Aspartate Amino Transf (AST/SGOT) 21 U/L (15-37) Alanine Aminotransferase (ALT/SGPT) 21 U/L (14-59) Alkaline Phosphatase 73 U/L (46-116) CO-Dlx-R-Type Natriuretic Peptide 1312 pg/mL (0-124) Total Protein 5.9 g/dL (6.4-8.2) Albumin 2.9 g/dL (3.4-5.0) Albumin/Globulin Ratio 1.0 (1.0-1.7) Test 09/22/16 08:00 White Blood Count 8.9 x10^3/uL (4.0-11.0) Red Blood Count 4.30 x10^6/uL (3.50-5.40) Hemoglobin 11.1 g/dL (12.0-15.5) Hematocrit 34.0 % (36.0-47.0) Mean Corpuscular Volume 79 fL (79-100) Mean Corpuscular Hemoglobin 26 pg (25-35) Mean Corpuscular Hemoglobin Concent 33 g/dL (31-37) Red Cell Distribution Width 16.4 % (11.5-14.5) Platelet Count 330 x10^3/uL (140-400) Neutrophils (%) (Auto) 72 % (31-73) Lymphocytes (%) (Auto) 17 % (24-48) Monocytes (%) (Auto) 8 % (0-9) Eosinophils (%) (Auto) 2 % (0-3) Basophils (%) (Auto) 1 % (0-3) Neutrophils # (Auto) 6.4 x10^3uL (1.8-7.7) Lymphocytes # (Auto) 1.5 x10^3/uL (1.0-4.8) Monocytes # (Auto) 0.8 x10^3/uL (0.0-1.1) Eosinophils # (Auto) 0.1 x10^3/uL (0.0-0.7) Basophils # (Auto) 0.1 x10^3/uL (0.0-0.2) Sodium Level 137 mmol/L (136-145) Potassium Level 2.8 mmol/L (3.5-5.1) Chloride Level 104 mmol/L (98-107) Carbon Dioxide Level 22 mmol/L (21-32) Anion Gap 11 (6-14) Blood Urea Nitrogen 10 mg/dL (7-20) Creatinine 0.7 mg/dL (0.6-1.0) Estimated GFR (Cockcroft-Gault) 82.0 Glucose Level 90 mg/dL (70-99) Calcium Level 9.0 mg/dL (8.5-10.1) Magnesium Level 2.0 mg/dL (1.8-2.4) Thyroid Stimulating Hormone (TSH) 1.751 uIU/mL (0.358-3.74) Laboratory Tests Test 09/22/16 08:00 White Blood Count 8.9 x10^3/uL (4.0-11.0) Red Blood Count 4.30 x10^6/uL (3.50-5.40) Hemoglobin 11.1 g/dL (12.0-15.5) Hematocrit 34.0 % (36.0-47.0) Mean Corpuscular Volume 79 fL (79-100) Mean Corpuscular Hemoglobin 26 pg (25-35) Mean Corpuscular Hemoglobin Concent 33 g/dL (31-37) Red Cell Distribution Width 16.4 % (11.5-14.5) Platelet Count 330 x10^3/uL (140-400) Neutrophils (%) (Auto) 72 % (31-73) Lymphocytes (%) (Auto) 17 % (24-48) Monocytes (%) (Auto) 8 % (0-9) Eosinophils (%) (Auto) 2 % (0-3) Basophils (%) (Auto) 1 % (0-3) Neutrophils # (Auto) 6.4 x10^3uL (1.8-7.7) Lymphocytes # (Auto) 1.5 x10^3/uL (1.0-4.8) Monocytes # (Auto) 0.8 x10^3/uL (0.0-1.1) Eosinophils # (Auto) 0.1 x10^3/uL (0.0-0.7) Basophils # (Auto) 0.1 x10^3/uL (0.0-0.2) Sodium Level 137 mmol/L (136-145) Potassium Level 2.8 mmol/L (3.5-5.1) Chloride Level 104 mmol/L (98-107) Carbon Dioxide Level 22 mmol/L (21-32) Anion Gap 11 (6-14) Blood Urea Nitrogen 10 mg/dL (7-20) Creatinine 0.7 mg/dL (0.6-1.0) Estimated GFR (Cockcroft-Gault) 82.0 Glucose Level 90 mg/dL (70-99) Calcium Level 9.0 mg/dL (8.5-10.1) Magnesium Level 2.0 mg/dL (1.8-2.4) Thyroid Stimulating Hormone (TSH) 1.751 uIU/mL (0.358-3.74) Assessment/Plan Patient is very pleasant 75-year-old white female with several medical problems including difficulty voiding. Patient had a urinary tract infection in the past week or 2 and was treated with a course of antibiotic by her primary care physician. Patient has had problems with voiding in the distant past and had a urethral procedure in [place] in the past. Patient's urine today is completely negative and her creatinine is within normal limits. Abdomen is soft and she has a reducible umbilical hernia. Patient with no discrete CVA tenderness. Abdomen is protuberant. Patient with no obvious pelvic prolapse and the urethral meatus appears within normal limits. I talked with the patient concerning her findings we'll get a renal and bladder ultrasound on the patient to make sure he has not and urinary retention and also have them check postvoid residuals and proceed accordingly. DANIEL CONTRERAS MD Sep 22, 2016 13:19
--- NOTE | 2016-09-22 13:35 | PDOC ---
PROGRESS NOTES Chief Complaint Chief Complaint 1. 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 hypokalemia 3. bronchitis 4. copd 5. urination difficulty 6. htn 7. chronic constipation 8, normacytic anemia 2/2 chronic dz 9.; mild malnutrition 10 .urinary retention 11. mild dementia 12. severe hearing loss plan: renal, pulm, uro consulted, on patel now hold htn meds add cough meds, duoneb CXR neg, CT showed emphysema only replete Na, K. as per renal, got one time 3% saline, then cont NS asked nurse to do bladder scan showed urinary retention cont some home meds PTOT DVT ppx check tsh, cortisol level. also osmolality ,urine lytes as per renal. cont NS 60cc/h, alessandra patel, [facility] for SNF, hope tmr History of Present Illness History of Present Illness cough better Na improved overnight with 3% saline and NS. hopefully wont cause any AMS since increase too fast, should be ok if it is acute hyponatremia urinary retention need patel agitated to staff including me K still very low Vitals Vitals Vital Signs Date Time Temp Pulse Resp B/P (MAP) Pulse Ox O2 Delivery O2 Flow Rate FiO2 09/22/16 12:27 16 98 Room Air 09/22/16 07:00 97.4 83 175/95 (121) 97.4 Physical Exam General: Alert, Oriented X3, No acute distress Heart: Regular rate, Normal S1, No murmurs Lungs: Other (decrease bs) Abdomen: Normal bowel sounds, Soft Extremities: No clubbing, No cyanosis, No edema, Normal pulses Skin: No rashes, No breakdown Labs LABS Laboratory Tests Test 09/22/16 08:00 White Blood Count 8.9 x10^3/uL (4.0-11.0) Red Blood Count 4.30 x10^6/uL (3.50-5.40) Hemoglobin 11.1 g/dL (12.0-15.5) Hematocrit 34.0 % (36.0-47.0) Mean Corpuscular Volume 79 fL (79-100) Mean Corpuscular Hemoglobin 26 pg (25-35) Mean Corpuscular Hemoglobin Concent 33 g/dL (31-37) Red Cell Distribution Width 16.4 % (11.5-14.5) Platelet Count 330 x10^3/uL (140-400) Neutrophils (%) (Auto) 72 % (31-73) Lymphocytes (%) (Auto) 17 % (24-48) Monocytes (%) (Auto) 8 % (0-9) Eosinophils (%) (Auto) 2 % (0-3) Basophils (%) (Auto) 1 % (0-3) Neutrophils # (Auto) 6.4 x10^3uL (1.8-7.7) Lymphocytes # (Auto) 1.5 x10^3/uL (1.0-4.8) Monocytes # (Auto) 0.8 x10^3/uL (0.0-1.1) Eosinophils # (Auto) 0.1 x10^3/uL (0.0-0.7) Basophils # (Auto) 0.1 x10^3/uL (0.0-0.2) Sodium Level 137 mmol/L (136-145) Potassium Level 2.8 mmol/L (3.5-5.1) Chloride Level 104 mmol/L (98-107) Carbon Dioxide Level 22 mmol/L (21-32) Anion Gap 11 (6-14) Blood Urea Nitrogen 10 mg/dL (7-20) Creatinine 0.7 mg/dL (0.6-1.0) Estimated GFR (Cockcroft-Gault) 82.0 Glucose Level 90 mg/dL (70-99) Calcium Level 9.0 mg/dL (8.5-10.1) Magnesium Level 2.0 mg/dL (1.8-2.4) Thyroid Stimulating Hormone (TSH) 1.751 uIU/mL (0.358-3.74) Review of Systems Review of Systems no fever, chills, sob or chest pain Comment Review of Relevant I have reviewed the following items farzad (where applicable) has been applied. Labs Laboratory Tests Test 09/21/16 00:03 09/21/16 00:20 09/21/16 01:15 09/21/16 03:00 Magnesium Level 1.8 mg/dL (1.8-2.4) Urine Collection Type Unknown Urine Color Yellow Urine Clarity Clear Urine pH 7.5 Urine Specific [place] <=1.005 Urine Protein Negative mg/dL (NEG-TRACE) Urine Glucose (UA) Negative mg/dL (NEG) Urine Ketones (Stick) Negative mg/dL (NEG) Urine Blood Negative (NEG) Urine Nitrite Negative (NEG) Urine Bilirubin Negative (NEG) Urine Urobilinogen Dipstick 0.2 mg/dL (0.2 mg/dL) Urine Leukocyte Esterase Negative (NEG) Urine RBC 0 /HPF (0-2) Urine WBC 0 /HPF (0-4) Urine Squamous Epithelial Cells Few /LPF Urine Transitional Epithelial Cells Occ /LPF Urine Bacteria 0 /HPF (0-FEW) Serum Osmolality 245 mOsm/Kg (279-304) White Blood Count 10.1 x10^3/uL (4.0-11.0) Red Blood Count 4.02 x10^6/uL (3.50-5.40) Hemoglobin 10.2 g/dL (12.0-15.5) Hematocrit 30.8 % (36.0-47.0) Mean Corpuscular Volume 77 fL (79-100) Mean Corpuscular Hemoglobin 26 pg (25-35) Mean Corpuscular Hemoglobin Concent 33 g/dL (31-37) Red Cell Distribution Width 16.0 % (11.5-14.5) Platelet Count 289 x10^3/uL (140-400) Neutrophils (%) (Auto) 77 % (31-73) Lymphocytes (%) (Auto) 14 % (24-48) Monocytes (%) (Auto) 8 % (0-9) Eosinophils (%) (Auto) 1 % (0-3) Basophils (%) (Auto) 1 % (0-3) Neutrophils # (Auto) 7.7 x10^3uL (1.8-7.7) Lymphocytes # (Auto) 1.4 x10^3/uL (1.0-4.8) Monocytes # (Auto) 0.8 x10^3/uL (0.0-1.1) Eosinophils # (Auto) 0.1 x10^3/uL (0.0-0.7) Basophils # (Auto) 0.0 x10^3/uL (0.0-0.2) Sodium Level 122 mmol/L (136-145) Potassium Level 2.6 mmol/L (3.5-5.1) Chloride Level 86 mmol/L (98-107) Carbon Dioxide Level 26 mmol/L (21-32) Anion Gap 10 (6-14) Blood Urea Nitrogen 12 mg/dL (7-20) Creatinine 0.7 mg/dL (0.6-1.0) Estimated GFR (Cockcroft-Gault) 82.0 BUN/Creatinine Ratio 17 (6-20) Glucose Level 102 mg/dL (70-99) Calcium Level 8.9 mg/dL (8.5-10.1) Total Bilirubin 0.4 mg/dL (0.2-1.0) Aspartate Amino Transf (AST/SGOT) 21 U/L (15-37) Alanine Aminotransferase (ALT/SGPT) 21 U/L (14-59) Alkaline Phosphatase 73 U/L (46-116) UR-Qjl-V-Type Natriuretic Peptide 1312 pg/mL (0-124) Total Protein 5.9 g/dL (6.4-8.2) Albumin 2.9 g/dL (3.4-5.0) Albumin/Globulin Ratio 1.0 (1.0-1.7) Test 09/22/16 08:00 White Blood Count 8.9 x10^3/uL (4.0-11.0) Red Blood Count 4.30 x10^6/uL (3.50-5.40) Hemoglobin 11.1 g/dL (12.0-15.5) Hematocrit 34.0 % (36.0-47.0) Mean Corpuscular Volume 79 fL (79-100) Mean Corpuscular Hemoglobin 26 pg (25-35) Mean Corpuscular Hemoglobin Concent 33 g/dL (31-37) Red Cell Distribution Width 16.4 % (11.5-14.5) Platelet Count 330 x10^3/uL (140-400) Neutrophils (%) (Auto) 72 % (31-73) Lymphocytes (%) (Auto) 17 % (24-48) Monocytes (%) (Auto) 8 % (0-9) Eosinophils (%) (Auto) 2 % (0-3) Basophils (%) (Auto) 1 % (0-3) Neutrophils # (Auto) 6.4 x10^3uL (1.8-7.7) Lymphocytes # (Auto) 1.5 x10^3/uL (1.0-4.8) Monocytes # (Auto) 0.8 x10^3/uL (0.0-1.1) Eosinophils # (Auto) 0.1 x10^3/uL (0.0-0.7) Basophils # (Auto) 0.1 x10^3/uL (0.0-0.2) Sodium Level 137 mmol/L (136-145) Potassium Level 2.8 mmol/L (3.5-5.1) Chloride Level 104 mmol/L (98-107) Carbon Dioxide Level 22 mmol/L (21-32) Anion Gap 11 (6-14) Blood Urea Nitrogen 10 mg/dL (7-20) Creatinine 0.7 mg/dL (0.6-1.0) Estimated GFR (Cockcroft-Gault) 82.0 Glucose Level 90 mg/dL (70-99) Calcium Level 9.0 mg/dL (8.5-10.1) Magnesium Level 2.0 mg/dL (1.8-2.4) Thyroid Stimulating Hormone (TSH) 1.751 uIU/mL (0.358-3.74) Laboratory Tests Test 09/22/16 08:00 White Blood Count 8.9 x10^3/uL (4.0-11.0) Red Blood Count 4.30 x10^6/uL (3.50-5.40) Hemoglobin 11.1 g/dL (12.0-15.5) Hematocrit 34.0 % (36.0-47.0) Mean Corpuscular Volume 79 fL (79-100) Mean Corpuscular Hemoglobin 26 pg (25-35) Mean Corpuscular Hemoglobin Concent 33 g/dL (31-37) Red Cell Distribution Width 16.4 % (11.5-14.5) Platelet Count 330 x10^3/uL (140-400) Neutrophils (%) (Auto) 72 % (31-73) Lymphocytes (%) (Auto) 17 % (24-48) Monocytes (%) (Auto) 8 % (0-9) Eosinophils (%) (Auto) 2 % (0-3) Basophils (%) (Auto) 1 % (0-3) Neutrophils # (Auto) 6.4 x10^3uL (1.8-7.7) Lymphocytes # (Auto) 1.5 x10^3/uL (1.0-4.8) Monocytes # (Auto) 0.8 x10^3/uL (0.0-1.1) Eosinophils # (Auto) 0.1 x10^3/uL (0.0-0.7) Basophils # (Auto) 0.1 x10^3/uL (0.0-0.2) Sodium Level 137 mmol/L (136-145) Potassium Level 2.8 mmol/L (3.5-5.1) Chloride Level 104 mmol/L (98-107) Carbon Dioxide Level 22 mmol/L (21-32) Anion Gap 11 (6-14) Blood Urea Nitrogen 10 mg/dL (7-20) Creatinine 0.7 mg/dL (0.6-1.0) Estimated GFR (Cockcroft-Gault) 82.0 Glucose Level 90 mg/dL (70-99) Calcium Level 9.0 mg/dL (8.5-10.1) Magnesium Level 2.0 mg/dL (1.8-2.4) Thyroid Stimulating Hormone (TSH) 1.751 uIU/mL (0.358-3.74) Microbiology 09/21/16 Blood Culture - Preliminary, Resulted NO GROWTH AFTER 1 DAY 09/22/16 Gram Stain - Final, Complete Medications Current Medications Oxycodone/ Acetaminophen (Percocet 10/325) 1 tab Q4HRS PO ; Start 09/21/16 at 00 :00; Stop 09/21/16 at 00:00; Status DC Oxycodone HCl (OxyCONTIN) 30 mg Q12HR PO ; Start 09/21/16 at 09:00; Stop at 09:00; Status DC Sodium Chloride 1,000 ml @ 60 mls/hr [id number] IV Last administered on t 22:52; Start 09/20/16 at 21:10 Ondansetron HCl (Zofran) 4 mg PRN Q6HRS PRN IV NAUSEA/VOMITING; Start 09/20/16 at 21:15 Acetaminophen (Tylenol) 650 mg PRN Q6HRS PRN PO FEVER; Start 09/20/16 at 21:15 Ceftriaxone Sodium 1 gm/ Sodium Chloride 50 ml @ 100 mls/hr Q24H IV ; Start at 21:15; Status UNV Oxycodone HCl (OxyCONTIN) 30 mg [id number] PO Last administered on 09/21/16 17:48; Start 09/21/16 at 06:30 Oxycodone/ Acetaminophen (Percocet 10/325) 1 tab Q4HRS PO Last administered on 09/22/16 12:27; Start 09/20/16 at 22:30 Levofloxacin/ Dextrose (Levaquin Per Pharmacy) 1 each PRN DAILY PRN MC SEE COMMENTS; Start 09/20/16 at 22:15 Levofloxacin/ Dextrose 100 ml @ 100 mls/hr 1X ONCE IV Last administered on 00:24; Start 09/20/16 at 23:00; Stop 09/20/16 at 23:59; Status DC Levofloxacin/ Dextrose 50 ml @ 50 mls/hr Q24H IV Last administered on 23:29; Start 09/21/16 at 23:00 Potassium Chloride 100 ml @ 100 mls/hr Q1H IV Last administered on 09/21/16 10:37; Start 09/21/16 at 07:00; Stop 09/21/16 at 10:59; Status DC Potassium Chloride 100 ml @ 100 mls/hr Q1H IV ; Start 09/21/16 at 09:00; Stop 09/21/16 at 12:59; Status Cancel Cetirizine HCl (ZyrTEC) 10 mg DAILY PO Last administered on 09/22/16 08:51; Start 09/21/16 at 09:30 Clonazepam (KlonoPIN) 0.5 mg DAILY PO Last administered on 09/22/16 08:51; Start 09/21/16 at 09:30 Cyclobenzaprine HCl (Flexeril) 10 mg TID PO Last administered on 09/22/16 08: 51; Start 09/21/16 at 09:30 Fentanyl (Duragesic 100mcg/Hr Patch) 1 patch Q72H TD Last administered on 09:51; Start 09/21/16 at 09:30 Olanzapine (ZyPREXA) 5 mg DAILY PO Last administered on 09/22/16 08:52; Start 09/21/16 at 09:30 Roflumilast (Daliresp) 500 mcg DAILY PO Last administered on 09/22/16 08:51; Start 09/21/16 at 09:30 Sennosides (Senna) 8.6 mg DAILY PO Last administered on 09/22/16 08:52; Start 09/21/16 at 09:30 Non-Formulary Medication 1 puff BID IH ; Start 09/21/16 at 09:00; Status UNV Pantoprazole Sodium (Protonix) 40 mg DAILYAC PO Last administered on 09/22/16 08:51; Start 09/21/16 at 09:30 Non-Formulary Medication 1 cap DAILY IH ; Start 09/21/16 at 09:00; Status UNV Albuterol/ Ipratropium (Duoneb) 3 ml RTQID NEB Last administered on 09/22/16 11:18; Start 09/21/16 at 09:30 Albuterol/ Ipratropium (Duoneb) 3 ml RTQID NEB ; Start 09/21/16 at 12:00; Status UNV Budesonide (Pulmicort) 0.5 mg RTBID NEB Last administered on 09/22/16 07:10; Start 09/21/16 at 09:30 Albuterol/ Ipratropium (Duoneb) 3 ml RTQID NEB ; Start 09/21/16 at 12:00; Status Cancel Albuterol Sulfate (Ventolin Neb Soln) 2.5 mg PRN Q2HR PRN NEB SHORTNESS OF BREATH; Start 09/21/16 at 10:00 Guaifenesin (Mucinex) 600 mg BID PO Last administered on 09/22/16 08:52; Start 09/21/16 at 11:00 Sodium Chloride 500 ml @ 30 mls/hr 1X ONCE IV Last administered on 09/21/16 13:14; Start 09/21/16 at 12:00; Stop 09/22/16 at 04:39; Status DC Enoxaparin Sodium (Lovenox 40mg Syringe) 40 mg Q24H SQ Last administered on 16:31; Start 09/21/16 at 16:00 Tamsulosin HCl (Flomax) 0.4 mg DAILY PO Last administered on 09/22/16 09:03; Start 09/22/16 at 09:00 Potassium Chloride (Klor-Con) 40 meq 1X ONCE PO Last administered on 11:59; Start 09/22/16 at 10:00; Stop 09/22/16 at 10:01; Status DC Potassium Chloride 100 ml @ 100 mls/hr Q1H IV Last administered on 09/22/16 12:29; Start 09/22/16 at 10:00; Stop 09/22/16 at 13:59 Active Scripts Active Reported Albuterol Sulfate Neb Soln (Albuterol Sulfate) 2.5 Mg/3 Ml Vial.neb 2.5 Mg NEB Q6HRS Combivent Respimat Inhal (Ipratropium/Albuterol Sulfate) 4 Gm Aer.w.adap 2 Inh IH QID Glucosamine Chondroitin Tab (Gluc Chung/Chondro Chung A/Vit C/Mn) 1 Each Tablet 1 Each PO Aloe Vera 25 Mg Capsule 25 Mg PO BID [potassium bicarb] 600 Intlu PO Azelastine Hcl 137 Mcg/0.137 Ml [place].pump 2 [place] NS BID Cetirizine Hcl 10 Mg Tablet 1 Tab PO DAILY Omeprazole 40 Mg Capsule.dr 1 Cap PO DAILY Celebrex (Celecoxib) 200 Mg Capsule 200 Mg PO BID 30 Days Oxycontin (Oxycodone HCl) 30 Mg Tab.er.12h 30 Mg PO BID Multivitamins (Multivitamin) 1 Each Tablet 1 Tab PO DAILY FENTANYL 100mcg/hr (Fentanyl) 1 Each Patch.td72 1 Patch TD Q72H Daliresp (Roflumilast) 500 Mcg Tablet 1 Tab PO DAILY Amitiza (Lubiprostone) 24 Mcg Capsule 1 Cap PO BID Oxycodone-Acetaminophen 10-325 (Oxycodone Hcl/Acetaminophen) 1 Each Tablet 1 Tab PO Q4HRS Cyclobenzaprine Hcl 10 Mg Tablet 1 Tab PO TID Nasonex (Mometasone Furoate) 17 Gm [place].pump 2 Sprays NS DAILY Spiriva (Tiotropium [place]) 18 Mcg Cap.w.dev 1 Cap IH DAILY Advair 500-50 Diskus (Fluticasone/Salmeterol) 1 Each Disk.w.dev 1 Puff IH BID Clonazepam 0.5 Mg Tablet 1 Tab PO DAILY Olanzapine 2.5 Mg Tablet 5 Mg PO DAILY Prednisone 2.5 Mg Tablet 5 Mg PO DAILY Super B Complex (Vitamin B Complex & Vit C No.4) 150 Mg Tablet 150 Mg PO Green Tea (Green Tea [place] Extract) 1 Each Capsule 1 Each PO BID Vitamin A 8,000 Unit Capsule 8,000 Unit PO Vitamin C (Ascorbic Acid) 1,000 Mg Tablet 1,000 Mg PO Vitamin E (Vitamin E Mixed) 400 Unit Capsule 400 Unit PO Vitamin D (Cholecalciferol (Vitamin D3)) 1,000 Unit Capsule 1,000 Unit PO Calcium (Calcium Carbonate) 600 Mg Tablet 1,200 Mg PO Vegetable Laxative (Sennosides) 8.6 Mg Tablet 8.6 Mg PO Evista (Raloxifene Hcl) 60 Mg Tablet 60 Mg PO DAILY Diovan Hct 160-12.5 Mg Tab (Valsartan/Hydrochlorothiazide) 1 Each Tablet 1 Each PO Vitals/I & O Vital Sign - Last 24 Hours 09/21/16 09/21/16 09/21/16 09/21/16 13:51 15:00 15:26 16:33 Temp 98.1 98.1 Pulse 86 Resp 18 19 16 B/P (MAP) 134/76 (95) Pulse Ox 96 98 98 O2 Delivery Room Air Room Air Room Air Room Air 09/21/16 09/21/16 09/21/16 09/21/16 16:56 17:48 19:00 20:00 Temp 97.9 97.9 Pulse 88 Resp 18 18 B/P (MAP) 111/54 (73) Pulse Ox 98 93 O2 Delivery Room Air Room Air Room Air Room Air 09/21/16 09/21/16 09/22/16 09/22/16 21:22 23:00 00:00 03:00 Temp 97.7 97.5 97.7 97.5 Pulse 75 71 Resp 18 18 B/P (MAP) 127/60 (82) 145/65 (91) Pulse Ox 98 90 90 97 O2 Delivery Room Air Room Air Room Air Room Air 09/22/16 09/22/16 09/22/16 09/22/16 04:00 07:00 07:11 08:00 Temp 97.4 97.4 Pulse 83 Resp 18 B/P (MAP) 175/95 (121) Pulse Ox 97 95 98 O2 Delivery Room Air Room Air Room Air Room Air 09/22/16 09/22/16 09/22/16 09/22/16 08:52 09:52 11:18 12:27 Resp 18 16 Pulse Ox 98 98 98 98 O2 Delivery Room Air Room Air Room Air Room Air Intake and Output 09/21/16 09/21/16 09/22/16 15:00 23:00 07:00 Intake Total 300 ml 400 ml Output Total 500 ml 350 ml Balance -200 ml 400 ml -350 ml ROMANA ORO MD Sep 22, 2016 13:35
[2016-09-22] MEDS: LISINOPRIL 20 MG TABLET PO SCH (14:11)
[2016-09-22 15:00] VITALS: BP 165/92
[2016-09-22 15:22] LABS: SODIUM, URINE 26 mmol/L (Not Estab.)
[2016-09-22] MEDS: ENOXAPARIN 40 MG/0.4 ML SYRINGE. SQ SCH (16:00)
[2016-09-22 19:00] VITALS: BP 145/67
[2016-09-22] MEDS: IV NORMAL SALINE 1000ML BAG 1,000 ML IV SCH (22:38)
[2016-09-22 23:00] VITALS: BP 133/64
[2016-09-23] VITALS (7 sets, daily range): BP systolic 134–171; BP diastolic 66–93
[2016-09-23] MEDS: oxyCODONE/APAP 10/325 1 TAB TABLET PO SCH ×6 (00:12→23:08)
[2016-09-23 04:43] LABS: CALCIUM 8.7 mg/dL (8.5-10.1); CREATININE 0.7 mg/dL (0.6-1.0); MAGNESIUM 1.9 mg/dL (1.8-2.4)
[2016-09-23] MEDS: oxyCODONE ER 15 MG TAB.ER.12H PO SCH ×2 (06:28→17:05)
[2016-09-23] MEDS: BUDESONIDE 0.5 MG/2 ML NEBU. NEB SCH ×2 (08:19→20:36)
[2016-09-23] MEDS: IPRATRPIUM/ALBUTEROL 0.5/2.5MG 3 ML NEBU. NEB SCH ×4 (08:19→20:36)
[2016-09-23] MEDS: CETIRIZINE HCL 10 MG TABLET. PO SCH (08:53)
[2016-09-23] MEDS: SENNOSIDES 8.6 MG TABLET PO SCH (08:54)
[2016-09-23] MEDS: ROFLUMILAST 500 MCG TABLET. PO SCH (08:54)
[2016-09-23] MEDS: PANTOPRAZOLE 40 MG TABLET.DR. PO SCH (08:54)
[2016-09-23] MEDS: TAMSULOSIN 0.4 MG CAP.ER.24H. PO SCH (08:54)
[2016-09-23] MEDS: CYCLOBENZAPRINE 10 MG TABLET. PO SCH ×3 (08:55→23:08)
[2016-09-23] MEDS: OLANZapine 2.5 MG TABLET PO SCH (08:55)
[2016-09-23] MEDS: LISINOPRIL 20 MG TABLET PO SCH (08:55)
[2016-09-23] MEDS: clonazePAM 0.5 MG TABLET PO SCH (09:50)
[2016-09-23] MEDS: IV NORMAL SALINE 1000ML BAG 1,000 ML IV SCH ×2 (09:50→23:19)
--- NOTE | 2016-09-23 10:16 | PDOC ---
PULMONARY PROGRESS NOTES Subjective cough much improved Vitals Vital Signs Date Time Temp Pulse Resp B/P (MAP) Pulse Ox O2 Delivery O2 Flow Rate FiO2 09/23/16 08:55 77 171/75 09/23/16 08:54 99 Room Air 09/23/16 07:00 97.5 18 97.5 General: Alert, No acute distress Lungs: Other (decrease bs) Cardiovascular: S1, S2 Abdomen: Soft, Other Neuro Exam: Alert Extremities: No Edema Skin: Warm Labs Laboratory Tests Test 09/21/16 17:40 09/22/16 08:00 09/23/16 04:00 Urine Sodium 26 mmol/L (Not Estab.) Urine Potassium 9.4 mmol/L (Not Estab.) Urine Chloride <20 mmol/L (Not Estab.) White Blood Count 8.9 x10^3/uL (4.0-11.0) Red Blood Count 4.30 x10^6/uL (3.50-5.40) Hemoglobin 11.1 g/dL (12.0-15.5) Hematocrit 34.0 % (36.0-47.0) Mean Corpuscular Volume 79 fL (79-100) Mean Corpuscular Hemoglobin 26 pg (25-35) Mean Corpuscular Hemoglobin Concent 33 g/dL (31-37) Red Cell Distribution Width 16.4 % (11.5-14.5) Platelet Count 330 x10^3/uL (140-400) Neutrophils (%) (Auto) 72 % (31-73) Lymphocytes (%) (Auto) 17 % (24-48) Monocytes (%) (Auto) 8 % (0-9) Eosinophils (%) (Auto) 2 % (0-3) Basophils (%) (Auto) 1 % (0-3) Neutrophils # (Auto) 6.4 x10^3uL (1.8-7.7) Lymphocytes # (Auto) 1.5 x10^3/uL (1.0-4.8) Monocytes # (Auto) 0.8 x10^3/uL (0.0-1.1) Eosinophils # (Auto) 0.1 x10^3/uL (0.0-0.7) Basophils # (Auto) 0.1 x10^3/uL (0.0-0.2) Sodium Level 137 mmol/L (136-145) 133 mmol/L (136-145) Potassium Level 2.8 mmol/L (3.5-5.1) 4.0 mmol/L (3.5-5.1) Chloride Level 104 mmol/L (98-107) 103 mmol/L (98-107) Carbon Dioxide Level 22 mmol/L (21-32) 20 mmol/L (21-32) Anion Gap 11 (6-14) 10 (6-14) Blood Urea Nitrogen 10 mg/dL (7-20) 10 mg/dL (7-20) Creatinine 0.7 mg/dL (0.6-1.0) 0.7 mg/dL (0.6-1.0) Estimated GFR (Cockcroft-Gault) 82.0 82.0 Glucose Level 90 mg/dL (70-99) 73 mg/dL (70-99) Calcium Level 9.0 mg/dL (8.5-10.1) 8.7 mg/dL (8.5-10.1) Magnesium Level 2.0 mg/dL (1.8-2.4) 1.9 mg/dL (1.8-2.4) Thyroid Stimulating Hormone (TSH) 1.751 uIU/mL (0.358-3.74) Cortisol AM Sample 19.0 ug/dL (6.2-19.4) Laboratory Tests Test 09/23/16 04:00 Sodium Level 133 mmol/L (136-145) Potassium Level 4.0 mmol/L (3.5-5.1) Chloride Level 103 mmol/L (98-107) Carbon Dioxide Level 20 mmol/L (21-32) Anion Gap 10 (6-14) Blood Urea Nitrogen 10 mg/dL (7-20) Creatinine 0.7 mg/dL (0.6-1.0) Estimated GFR (Cockcroft-Gault) 82.0 Glucose Level 73 mg/dL (70-99) Calcium Level 8.7 mg/dL (8.5-10.1) Magnesium Level 1.9 mg/dL (1.8-2.4) Medications Active Scripts Medications Dose Route/Sig Max Daily Dose Days Date Category Albuterol Sulfate Neb Soln (Albuterol Sulfate) 2.5 Mg/3 Ml Vial.neb 2.5 Mg NEB Q6HRS 09/20/16 Reported Combivent Respimat Inhal (Ipratropium/Albuterol Sulfate) 4 Gm Aer.w.adap 2 Inh IH QID 09/20/16 Reported Glucosamine Chondroitin Tab (Gluc Chung/Chondro Chung A/Vit C/Mn) 1 Each Tablet 1 Each PO 09/20/16 Reported Aloe Vera 25 Mg Capsule 25 Mg PO BID 09/20/16 Reported [potassium bicarb] 600 Intlu PO 09/20/16 Reported Azelastine Hcl 137 Mcg/0.137 Ml [place].pump 2 [place] NS BID 09/20/16 Reported Cetirizine Hcl 10 Mg Tablet 1 Tab PO DAILY 09/20/16 Reported Omeprazole 40 Mg Capsule.dr 1 Cap PO DAILY 09/20/16 Reported Celebrex (Celecoxib) 200 Mg Capsule 200 Mg PO BID 30 09/20/16 Reported Oxycontin (Oxycodone HCl) 30 Mg Tab.er.12h 30 Mg PO BID 02/04/16 Reported Multivitamins (Multivitamin) 1 Each Tablet 1 Tab PO DAILY 05/29/15 Reported FENTANYL 100mcg/hr (Fentanyl) 1 Each Patch.td72 1 Patch TD Q72H 05/29/15 Reported Daliresp (Roflumilast) 500 Mcg Tablet 1 Tab PO DAILY 11/20/14 Reported Amitiza (Lubiprostone) 24 Mcg Capsule 1 Cap PO BID 11/20/14 Reported Oxycodone-Acetaminophen 10-325 (Oxycodone Hcl/Acetaminophen) 1 Each Tablet 1 Tab PO Q4HRS 11/20/14 Reported Cyclobenzaprine Hcl 10 Mg Tablet 1 Tab PO TID 11/20/14 Reported Nasonex (Mometasone Furoate) 17 Gm [place].pump 2 Sprays NS DAILY 11/20/14 Reported Spiriva (Tiotropium [place]) 18 Mcg Cap.w.dev 1 Cap IH DAILY 11/20/14 Reported Advair 500-50 Diskus (Fluticasone/Salmeterol) 1 Each Disk.w.dev 1 Puff IH BID 11/20/14 Reported Clonazepam 0.5 Mg Tablet 1 Tab PO DAILY 11/20/14 Reported Olanzapine 2.5 Mg Tablet 5 Mg PO DAILY 11/20/14 Reported Prednisone 2.5 Mg Tablet 5 Mg PO DAILY 10/23/14 Reported Super B Complex (Vitamin B Complex & Vit C No.4) 150 Mg Tablet 150 Mg PO 07/19/13 Reported Green Tea (Green Tea [place] Extract) 1 Each Capsule 1 Each PO BID 07/19/13 Reported Vitamin A 8,000 Unit Capsule 8,000 Unit PO 07/19/13 Reported Vitamin C (Ascorbic Acid) 1,000 Mg Tablet 1,000 Mg PO 07/19/13 Reported Vitamin E (Vitamin E Mixed) 400 Unit Capsule 400 Unit PO 07/19/13 Reported Vitamin D (Cholecalciferol (Vitamin D3)) 1,000 Unit Capsule 1,000 Unit PO 07/19/13 Reported Calcium (Calcium Carbonate) 600 Mg Tablet 1,200 Mg PO 07/19/13 Reported Vegetable Laxative (Sennosides) 8.6 Mg Tablet 8.6 Mg PO 07/19/13 Reported Evista (Raloxifene Hcl) 60 Mg Tablet 60 Mg PO DAILY 07/19/13 Reported Diovan Hct 160-12.5 Mg Tab (Valsartan/Hydrochlorothiazide) 1 Each Tablet 1 Each PO 07/19/13 Reported Impression . 1. 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 no intervention 2. COPD 3. Chronic persistent cough due to above with recent worsening due to acute bronchitis 4. Acute bronchitis 5. chronic steroid dependence Plan . 1. ct chest with mild non-specific fibrosis/ no intervention 2. Nebs 3. cough suppressants 4. antibiotics 5. clinically better 6. steroids taper 7. possible home today CHERRIE LEVIN MD Sep 23, 2016 10:16
--- NOTE | 2016-09-23 12:40 | PDOC ---
Renal-Progress Notes Subjective Notes Notes NONE History of Present Illness Hx of present illness NO CHANGE Vitals Vitals Vital Signs Date Time Temp Pulse Resp B/P (MAP) Pulse Ox O2 Delivery O2 Flow Rate FiO2 09/23/16 12:18 Room Air 09/23/16 12:16 16 99 09/23/16 08:55 77 171/75 09/23/16 07:00 97.5 97.5 Weight Weight [ ] I.O. Intake and Output Intake and Output 09/23/16 07:00 Intake Total 1100 ml Output Total 925 ml Balance 175 ml Intake Oral 1100 ml Output Urine Total 925 ml Labs Labs Laboratory Tests Test 09/23/16 04:00 Sodium Level 133 mmol/L (136-145) Potassium Level 4.0 mmol/L (3.5-5.1) Chloride Level 103 mmol/L (98-107) Carbon Dioxide Level 20 mmol/L (21-32) Anion Gap 10 (6-14) Blood Urea Nitrogen 10 mg/dL (7-20) Creatinine 0.7 mg/dL (0.6-1.0) Estimated GFR (Cockcroft-Gault) 82.0 Glucose Level 73 mg/dL (70-99) Calcium Level 8.7 mg/dL (8.5-10.1) Magnesium Level 1.9 mg/dL (1.8-2.4) Micro Micro Microbiology 09/21/16 Blood Culture - Preliminary, Resulted NO GROWTH AFTER 2 DAYS 09/22/16 Gram Stain - Final, Complete Review of Systems Constitutional: yes: alert, oriented Ears/Nose/Throat: Yes: no symptom reported Eyes: Yes: no symptom reported Pulmonary: Yes no symptom reported Cardiovascular: Yes no symptom reported Psychiatric/Neurological: Yes: tremors Physical Exam General Appearance: no apparent distress Skin: warm Heart: S1S2 Abdomen: soft, bowel sounds present Genitourinary: bladder flat Neurology: alert Musculoskeletal: Weakness Assessment Assessment IMP HYPONATREMIA-ESSENTIALLY RESOLVED HYPOKALEMIA-CORRECTED PLAN WILL SIGN OFF AVOID HCTZ YESENIA MOORE MD Sep 23, 2016 12:40
[2016-09-23] MEDS ORDERED: VALS160T21 PO (13:02)
--- NOTE | 2016-09-23 13:15 | PDOC ---
PROGRESS NOTES Chief Complaint Chief Complaint 1. 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 hypokalemia 3. bronchitis 4. copd 5. urination difficulty 6. htn 7. chronic constipation 8, normacytic anemia 2/2 chronic dz 9.; mild malnutrition 10 .urinary retention 11. mild dementia 12. severe hearing loss plan: renal, pulm, uro consulted, on patel now hold htn meds add cough meds, duoneb CXR neg, CT showed emphysema only replete Na, K. as per renal, got one time 3% saline, then cont NS asked nurse to do bladder scan showed urinary retention cont some home meds PTOT DVT ppx check tsh, cortisol level. also osmolality ,urine lytes as per renal. cont NS 60cc/h, alessandra patel, [facility] for SNF, hope tmr History of Present Illness History of Present Illness no n.v/d confusion today cough better Na improved overnight with 3% saline and NS. hopefully wont cause any AMS since increase too fast, should be ok if it is acute hyponatremia urinary retention need patel agitated to staff including me K still very low Vitals Vitals Vital Signs Date Time Temp Pulse Resp B/P (MAP) Pulse Ox O2 Delivery O2 Flow Rate FiO2 09/23/16 12:18 Room Air 09/23/16 12:16 16 99 09/23/16 08:55 77 171/75 09/23/16 07:00 97.5 97.5 Physical Exam General: Alert, Oriented X3, No acute distress Heart: Regular rate, Normal S1, No murmurs Lungs: Other (decrease bs) Abdomen: Normal bowel sounds, Soft Extremities: No clubbing, No cyanosis, No edema, Normal pulses Skin: No rashes, No breakdown Labs LABS Laboratory Tests Test 09/23/16 04:00 Sodium Level 133 mmol/L (136-145) Potassium Level 4.0 mmol/L (3.5-5.1) Chloride Level 103 mmol/L (98-107) Carbon Dioxide Level 20 mmol/L (21-32) Anion Gap 10 (6-14) Blood Urea Nitrogen 10 mg/dL (7-20) Creatinine 0.7 mg/dL (0.6-1.0) Estimated GFR (Cockcroft-Gault) 82.0 Glucose Level 73 mg/dL (70-99) Calcium Level 8.7 mg/dL (8.5-10.1) Magnesium Level 1.9 mg/dL (1.8-2.4) Assessment and Plan Assessmemt and Plan some delirium with fentanyl patch, family reports this is a known prior reaction monitor delirium and encephalopathy plan home with home health in AM consider more palliative option, she has been denied on hospice previously Problems: Comment Review of Relevant I have reviewed the following items farzad (where applicable) has been applied. Labs Laboratory Tests Test 09/21/16 17:40 09/22/16 08:00 09/23/16 04:00 Urine Sodium 26 mmol/L (Not Estab.) Urine Potassium 9.4 mmol/L (Not Estab.) Urine Chloride <20 mmol/L (Not Estab.) White Blood Count 8.9 x10^3/uL (4.0-11.0) Red Blood Count 4.30 x10^6/uL (3.50-5.40) Hemoglobin 11.1 g/dL (12.0-15.5) Hematocrit 34.0 % (36.0-47.0) Mean Corpuscular Volume 79 fL (79-100) Mean Corpuscular Hemoglobin 26 pg (25-35) Mean Corpuscular Hemoglobin Concent 33 g/dL (31-37) Red Cell Distribution Width 16.4 % (11.5-14.5) Platelet Count 330 x10^3/uL (140-400) Neutrophils (%) (Auto) 72 % (31-73) Lymphocytes (%) (Auto) 17 % (24-48) Monocytes (%) (Auto) 8 % (0-9) Eosinophils (%) (Auto) 2 % (0-3) Basophils (%) (Auto) 1 % (0-3) Neutrophils # (Auto) 6.4 x10^3uL (1.8-7.7) Lymphocytes # (Auto) 1.5 x10^3/uL (1.0-4.8) Monocytes # (Auto) 0.8 x10^3/uL (0.0-1.1) Eosinophils # (Auto) 0.1 x10^3/uL (0.0-0.7) Basophils # (Auto) 0.1 x10^3/uL (0.0-0.2) Sodium Level 137 mmol/L (136-145) 133 mmol/L (136-145) Potassium Level 2.8 mmol/L (3.5-5.1) 4.0 mmol/L (3.5-5.1) Chloride Level 104 mmol/L (98-107) 103 mmol/L (98-107) Carbon Dioxide Level 22 mmol/L (21-32) 20 mmol/L (21-32) Anion Gap 11 (6-14) 10 (6-14) Blood Urea Nitrogen 10 mg/dL (7-20) 10 mg/dL (7-20) Creatinine 0.7 mg/dL (0.6-1.0) 0.7 mg/dL (0.6-1.0) Estimated GFR (Cockcroft-Gault) 82.0 82.0 Glucose Level 90 mg/dL (70-99) 73 mg/dL (70-99) Calcium Level 9.0 mg/dL (8.5-10.1) 8.7 mg/dL (8.5-10.1) Magnesium Level 2.0 mg/dL (1.8-2.4) 1.9 mg/dL (1.8-2.4) Thyroid Stimulating Hormone (TSH) 1.751 uIU/mL (0.358-3.74) Cortisol AM Sample 19.0 ug/dL (6.2-19.4) Laboratory Tests Test 09/23/16 04:00 Sodium Level 133 mmol/L (136-145) Potassium Level 4.0 mmol/L (3.5-5.1) Chloride Level 103 mmol/L (98-107) Carbon Dioxide Level 20 mmol/L (21-32) Anion Gap 10 (6-14) Blood Urea Nitrogen 10 mg/dL (7-20) Creatinine 0.7 mg/dL (0.6-1.0) Estimated GFR (Cockcroft-Gault) 82.0 Glucose Level 73 mg/dL (70-99) Calcium Level 8.7 mg/dL (8.5-10.1) Magnesium Level 1.9 mg/dL (1.8-2.4) Microbiology 09/21/16 Blood Culture - Preliminary, Resulted NO GROWTH AFTER 2 DAYS 09/22/16 Gram Stain - Final, Complete Medications Current Medications Oxycodone/ Acetaminophen (Percocet 10/325) 1 tab Q4HRS PO ; Start 09/21/16 at 00 :00; Stop 09/21/16 at 00:00; Status DC Oxycodone HCl (OxyCONTIN) 30 mg Q12HR PO ; Start 09/21/16 at 09:00; Stop at 09:00; Status DC Sodium Chloride 1,000 ml @ 60 mls/hr [id number] IV Last administered on 09:50; Start 09/20/16 at 21:10 Ondansetron HCl (Zofran) 4 mg PRN Q6HRS PRN IV NAUSEA/VOMITING; Start 09/20/16 at 21:15 Acetaminophen (Tylenol) 650 mg PRN Q6HRS PRN PO FEVER; Start 09/20/16 at 21:15 Ceftriaxone Sodium 1 gm/ Sodium Chloride 50 ml @ 100 mls/hr Q24H IV ; Start at 21:15; Status UNV Oxycodone HCl (OxyCONTIN) 30 mg [id number] PO Last administered on 09/23/16 06:28; Start 09/21/16 at 06:30 Oxycodone/ Acetaminophen (Percocet 10/325) 1 tab Q4HRS PO Last administered on 09/23/16 12:16; Start 09/20/16 at 22:30 Levofloxacin/ Dextrose (Levaquin Per Pharmacy) 1 each PRN DAILY PRN MC SEE COMMENTS; Start 09/20/16 at 22:15; Stop 09/22/16 at 14:39; Status DC Levofloxacin/ Dextrose 100 ml @ 100 mls/hr 1X ONCE IV Last administered on 00:24; Start 09/20/16 at 23:00; Stop 09/20/16 at 23:59; Status DC Levofloxacin/ Dextrose 50 ml @ 50 mls/hr Q24H IV Last administered on 22:39; Start 09/21/16 at 23:00 Potassium Chloride 100 ml @ 100 mls/hr Q1H IV Last administered on 09/21/16 10:37; Start 09/21/16 at 07:00; Stop 09/21/16 at 10:59; Status DC Potassium Chloride 100 ml @ 100 mls/hr Q1H IV ; Start 09/21/16 at 09:00; Stop 09/21/16 at 12:59; Status Cancel Cetirizine HCl (ZyrTEC) 10 mg DAILY PO Last administered on 09/23/16 08:53; Start 09/21/16 at 09:30 Clonazepam (KlonoPIN) 0.5 mg DAILY PO Last administered on 09/23/16 09:50; Start 09/21/16 at 09:30 Cyclobenzaprine HCl (Flexeril) 10 mg TID PO Last administered on 09/23/16 08: 55; Start 09/21/16 at 09:30 Fentanyl (Duragesic 100mcg/Hr Patch) 1 patch Q72H TD Last administered on 09:51; Start 09/21/16 at 09:30 Olanzapine (ZyPREXA) 5 mg DAILY PO Last administered on 09/23/16 08:55; Start 09/21/16 at 09:30 Roflumilast (Daliresp) 500 mcg DAILY PO Last administered on 09/23/16 08:54; Start 09/21/16 at 09:30 Sennosides (Senna) 8.6 mg DAILY PO Last administered on 09/23/16 08:54; Start 09/21/16 at 09:30 Non-Formulary Medication 1 puff BID IH ; Start 09/21/16 at 09:00; Status UNV Pantoprazole Sodium (Protonix) 40 mg DAILYAC PO Last administered on 09/23/16 08:54; Start 09/21/16 at 09:30 Non-Formulary Medication 1 cap DAILY IH ; Start 09/21/16 at 09:00; Status UNV Albuterol/ Ipratropium (Duoneb) 3 ml RTQID NEB Last administered on 09/23/16 12:14; Start 09/21/16 at 09:30 Albuterol/ Ipratropium (Duoneb) 3 ml RTQID NEB ; Start 09/21/16 at 12:00; Status UNV Budesonide (Pulmicort) 0.5 mg RTBID NEB Last administered on 09/23/16 08:19; Start 09/21/16 at 09:30 Albuterol/ Ipratropium (Duoneb) 3 ml RTQID NEB ; Start 09/21/16 at 12:00; Status Cancel Albuterol Sulfate (Ventolin Neb Soln) 2.5 mg PRN Q2HR PRN NEB SHORTNESS OF BREATH; Start 09/21/16 at 10:00 Guaifenesin (Mucinex) 600 mg BID PO Last administered on 09/23/16 08:55; Start 09/21/16 at 11:00 Sodium Chloride 500 ml @ 30 mls/hr 1X ONCE IV Last administered on 09/21/16 13:14; Start 09/21/16 at 12:00; Stop 09/22/16 at 04:39; Status DC Enoxaparin Sodium (Lovenox 40mg Syringe) 40 mg Q24H SQ Last administered on 16:00; Start 09/21/16 at 16:00 Tamsulosin HCl (Flomax) 0.4 mg DAILY PO Last administered on 09/23/16 08:54; Start 09/22/16 at 09:00 Potassium Chloride (Klor-Con) 40 meq 1X ONCE PO Last administered on 11:59; Start 09/22/16 at 10:00; Stop 09/22/16 at 10:01; Status DC Potassium Chloride 100 ml @ 100 mls/hr Q1H IV Last administered on 09/22/16 15:49; Start 09/22/16 at 10:00; Stop 09/22/16 at 13:59; Status DC Lisinopril (Prinivil) 20 mg DAILY PO Last administered on 09/23/16 08:55; Start 09/22/16 at 14:00 Active Scripts Active Reported Albuterol Sulfate Neb Soln (Albuterol Sulfate) 2.5 Mg/3 Ml Vial.neb 2.5 Mg NEB Q6HRS Combivent Respimat Inhal (Ipratropium/Albuterol Sulfate) 4 Gm Aer.w.adap 2 Inh IH QID Glucosamine Chondroitin Tab (Gluc Chung/Chondro Chung A/Vit C/Mn) 1 Each Tablet 1 Each PO Aloe Vera 25 Mg Capsule 25 Mg PO BID [potassium bicarb] 600 Intlu PO Azelastine Hcl 137 Mcg/0.137 Ml [place].pump 2 [place] NS BID Cetirizine Hcl 10 Mg Tablet 1 Tab PO DAILY Omeprazole 40 Mg Capsule.dr 1 Cap PO DAILY Celebrex (Celecoxib) 200 Mg Capsule 200 Mg PO BID 30 Days Oxycontin (Oxycodone HCl) 30 Mg Tab.er.12h 30 Mg PO BID Multivitamins (Multivitamin) 1 Each Tablet 1 Tab PO DAILY FENTANYL 100mcg/hr (Fentanyl) 1 Each Patch.td72 1 Patch TD Q72H Daliresp (Roflumilast) 500 Mcg Tablet 1 Tab PO DAILY Amitiza (Lubiprostone) 24 Mcg Capsule 1 Cap PO BID Oxycodone-Acetaminophen 10-325 (Oxycodone Hcl/Acetaminophen) 1 Each Tablet 1 Tab PO Q4HRS Cyclobenzaprine Hcl 10 Mg Tablet 1 Tab PO TID Nasonex (Mometasone Furoate) 17 Gm [place].pump 2 Sprays NS DAILY Spiriva (Tiotropium [place]) 18 Mcg Cap.w.dev 1 Cap IH DAILY Advair 500-50 Diskus (Fluticasone/Salmeterol) 1 Each Disk.w.dev 1 Puff IH BID Clonazepam 0.5 Mg Tablet 1 Tab PO DAILY Olanzapine 2.5 Mg Tablet 5 Mg PO DAILY Prednisone 2.5 Mg Tablet 5 Mg PO DAILY Super B Complex (Vitamin B Complex & Vit C No.4) 150 Mg Tablet 150 Mg PO Green Tea (Green Tea [place] Extract) 1 Each Capsule 1 Each PO BID Vitamin A 8,000 Unit Capsule 8,000 Unit PO Vitamin C (Ascorbic Acid) 1,000 Mg Tablet 1,000 Mg PO Vitamin E (Vitamin E Mixed) 400 Unit Capsule 400 Unit PO Vitamin D (Cholecalciferol (Vitamin D3)) 1,000 Unit Capsule 1,000 Unit PO Calcium (Calcium Carbonate) 600 Mg Tablet 1,200 Mg PO Vegetable Laxative (Sennosides) 8.6 Mg Tablet 8.6 Mg PO Evista (Raloxifene Hcl) 60 Mg Tablet 60 Mg PO DAILY Diovan Hct 160-12.5 Mg Tab (Valsartan/Hydrochlorothiazide) 1 Each Tablet 1 Each PO Vitals/I & O Vital Sign - Last 24 Hours 09/22/16 09/22/16 09/22/16 09/22/16 14:09 14:11 14:51 15:00 Temp 97.9 97.9 Pulse 83 83 Resp 18 18 B/P (MAP) 175/95 165/92 (116) Pulse Ox 98 98 95 O2 Delivery Room Air Room Air Room Air 09/22/16 09/22/16 09/22/16 09/22/16 18:11 19:00 19:18 19:19 Temp 97.5 97.5 Pulse 92 Resp 18 B/P (MAP) 145/67 (93) Pulse Ox 98 99 99 99 O2 Delivery Room Air Room Air Room Air Room Air 09/22/16 09/22/16 09/22/16 09/23/16 20:00 20:52 23:00 00:12 Temp 97.7 97.7 Pulse 84 Resp 18 B/P (MAP) 133/64 (87) Pulse Ox 99 98 98 O2 Delivery Room Air Room Air Room Air Room Air 09/23/16 09/23/16 09/23/16 09/23/16 02:00 03:00 05:23 06:28 Temp 96.3 96.3 96.3 96.3 Pulse 77 77 Resp 18 18 B/P (MAP) 171/75 (107) 171/75 (107) Pulse Ox 99 99 99 99 O2 Delivery Room Air Room Air Room Air Room Air 09/23/16 09/23/16 09/23/16 09/23/16 07:00 08:00 08:22 08:27 Temp 97.5 97.5 Pulse 77 Resp 18 B/P (MAP) 160/80 (106) Pulse Ox 96 99 99 O2 Delivery Room Air Room Air Room Air Room Air 09/23/16 09/23/16 09/23/16 09/23/16 08:54 08:55 09:54 10:28 Pulse 77 Resp 18 16 B/P (MAP) 171/75 Pulse Ox 99 99 99 O2 Delivery Room Air Room Air Room Air 09/23/16 09/23/16 12:16 12:18 Resp 16 Pulse Ox 99 O2 Delivery Room Air Room Air Intake and Output 09/22/16 09/22/16 09/23/16 15:00 23:00 07:00 Intake Total 1100 ml Output Total 925 ml Balance 1100 ml -925 ml DILAN PEREZ MD Sep 23, 2016 13:14
[2016-09-23] MEDS: ENOXAPARIN 40 MG/0.4 ML SYRINGE. SQ SCH (17:07)
[2016-09-24 03:00] VITALS: BP 179/81
[2016-09-24] MEDS: oxyCODONE/APAP 10/325 1 TAB TABLET PO SCH ×5 (03:52→21:31)
[2016-09-24] MEDS: oxyCODONE ER 15 MG TAB.ER.12H PO SCH ×2 (06:18→18:12)
[2016-09-24 07:00] VITALS: BP 176/91
[2016-09-24] MEDS: BUDESONIDE 0.5 MG/2 ML NEBU. NEB SCH ×2 (07:08→19:05)
[2016-09-24] MEDS: IPRATRPIUM/ALBUTEROL 0.5/2.5MG 3 ML NEBU. NEB SCH ×4 (07:08→19:05)
--- NOTE | 2016-09-24 08:18 | PDOC ---
PULMONARY PROGRESS NOTES Subjective cough much improved Vitals Vital Signs Date Time Temp Pulse Resp B/P (MAP) Pulse Ox O2 Delivery O2 Flow Rate FiO2 09/24/16 07:09 94 Room Air 09/24/16 06:18 20 09/24/16 03:00 97.7 76 179/81 (113) 97.7 General: Alert, No acute distress Lungs: Other (decrease bs) Cardiovascular: S1, S2 Abdomen: Soft, Other Neuro Exam: Alert Extremities: No Edema Skin: Warm Labs Laboratory Tests Test 09/23/16 04:00 Sodium Level 133 mmol/L (136-145) Potassium Level 4.0 mmol/L (3.5-5.1) Chloride Level 103 mmol/L (98-107) Carbon Dioxide Level 20 mmol/L (21-32) Anion Gap 10 (6-14) Blood Urea Nitrogen 10 mg/dL (7-20) Creatinine 0.7 mg/dL (0.6-1.0) Estimated GFR (Cockcroft-Gault) 82.0 Glucose Level 73 mg/dL (70-99) Calcium Level 8.7 mg/dL (8.5-10.1) Magnesium Level 1.9 mg/dL (1.8-2.4) Medications Active Scripts Medications Dose Route/Sig Max Daily Dose Days Date Category Albuterol Sulfate Neb Soln (Albuterol Sulfate) 2.5 Mg/3 Ml Vial.neb 2.5 Mg NEB Q6HRS 09/20/16 Reported Combivent Respimat Inhal (Ipratropium/Albuterol Sulfate) 4 Gm Aer.w.adap 2 Inh IH QID 09/20/16 Reported Glucosamine Chondroitin Tab (Gluc Chung/Chondro Chung A/Vit C/Mn) 1 Each Tablet 1 Each PO 09/20/16 Reported Aloe Vera 25 Mg Capsule 25 Mg PO BID 09/20/16 Reported [potassium bicarb] 600 Intlu PO 09/20/16 Reported Azelastine Hcl 137 Mcg/0.137 Ml [place].pump 2 [place] NS BID 09/20/16 Reported Cetirizine Hcl 10 Mg Tablet 1 Tab PO DAILY 09/20/16 Reported Omeprazole 40 Mg Capsule. 1 Cap PO DAILY 09/20/16 Reported Celebrex (Celecoxib) 200 Mg Capsule 200 Mg PO BID 30 09/20/16 Reported Oxycontin (Oxycodone HCl) 30 Mg Tab.er.12h 30 Mg PO BID 02/04/16 Reported Multivitamins (Multivitamin) 1 Each Tablet 1 Tab PO DAILY 05/29/15 Reported FENTANYL 100mcg/hr (Fentanyl) 1 Each Patch.td72 1 Patch TD Q72H 05/29/15 Reported Daliresp (Roflumilast) 500 Mcg Tablet 1 Tab PO DAILY 11/20/14 Reported Amitiza (Lubiprostone) 24 Mcg Capsule 1 Cap PO BID 11/20/14 Reported Oxycodone-Acetaminophen 10-325 (Oxycodone Hcl/Acetaminophen) 1 Each Tablet 1 Tab PO Q4HRS 11/20/14 Reported Cyclobenzaprine Hcl 10 Mg Tablet 1 Tab PO TID 11/20/14 Reported Nasonex (Mometasone Furoate) 17 Gm [place].pump 2 Sprays NS DAILY 11/20/14 Reported Spiriva (Tiotropium [place]) 18 Mcg Cap.w.dev 1 Cap IH DAILY 11/20/14 Reported Advair 500-50 Diskus (Fluticasone/Salmeterol) 1 Each Disk.w.dev 1 Puff IH BID 11/20/14 Reported Clonazepam 0.5 Mg Tablet 1 Tab PO DAILY 11/20/14 Reported Olanzapine 2.5 Mg Tablet 5 Mg PO DAILY 11/20/14 Reported Prednisone 2.5 Mg Tablet 5 Mg PO DAILY 10/23/14 Reported Super B Complex (Vitamin B Complex & Vit C No.4) 150 Mg Tablet 150 Mg PO 07/19/13 Reported Green Tea (Green Tea [place] Extract) 1 Each Capsule 1 Each PO BID 07/19/13 Reported Vitamin A 8,000 Unit Capsule 8,000 Unit PO 07/19/13 Reported Vitamin C (Ascorbic Acid) 1,000 Mg Tablet 1,000 Mg PO 07/19/13 Reported Vitamin E (Vitamin E Mixed) 400 Unit Capsule 400 Unit PO 07/19/13 Reported Vitamin D (Cholecalciferol (Vitamin D3)) 1,000 Unit Capsule 1,000 Unit PO 07/19/13 Reported Calcium (Calcium Carbonate) 600 Mg Tablet 1,200 Mg PO 07/19/13 Reported Vegetable Laxative (Sennosides) 8.6 Mg Tablet 8.6 Mg PO 07/19/13 Reported Evista (Raloxifene Hcl) 60 Mg Tablet 60 Mg PO DAILY 4/25/14 Reported Diovan Hct 160-12.5 Mg Tab (Valsartan/Hydrochlorothiazide) 1 Each Tablet 1 Each PO 07/19/13 Reported Impression . 1. 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 no intervention 2. COPD 3. cough due to acute bronchitis 4. Acute bronchitis 5. chronic steroid dependence Plan . 1. ct chest with mild non-specific fibrosis/ no intervention 2. Nebs 3. cough suppressants 4. antibiotics 5. clinically better 6. steroids taper 7. possible home today CHERRIE LEVIN MD Sep 24, 2016 08:18
[2016-09-24] MEDS: CYCLOBENZAPRINE 10 MG TABLET. PO SCH ×3 (08:51→21:31)
[2016-09-24] MEDS: CETIRIZINE HCL 10 MG TABLET. PO SCH (08:51)
[2016-09-24] MEDS: TAMSULOSIN 0.4 MG CAP.ER.24H. PO SCH (08:51)
[2016-09-24] MEDS: SENNOSIDES 8.6 MG TABLET PO SCH (08:51)
[2016-09-24] MEDS: LISINOPRIL 20 MG TABLET PO SCH (08:52)
[2016-09-24] MEDS: PANTOPRAZOLE 40 MG TABLET.DR. PO SCH (08:52)
[2016-09-24] MEDS: ROFLUMILAST 500 MCG TABLET. PO SCH (08:53)
[2016-09-24] MEDS: clonazePAM 0.5 MG TABLET PO SCH (08:53)
[2016-09-24] MEDS: fentaNYL 100MCG/HR PATCH 1 PATCH PATCH TD SCH (08:55)
[2016-09-24] MEDS: OLANZapine 2.5 MG TABLET PO SCH (08:57)
[2016-09-24] MEDS ORDERED: TAMS0.4C97 PO (10:49)
[2016-09-24] MEDS ORDERED: GUAI600T47 PO (10:53)
[2016-09-24] MEDS ORDERED: LEVO250T25 PO (10:53)
[2016-09-24 11:00] VITALS: BP 161/86
[2016-09-24 11:32] LABS: BASO % 1 % (0-3); EOS % 1 % (0-3); HEMATOCRIT 32.2 % (36.0-47.0); HEMOGLOBIN 10.7 g/dL (12.0-15.5); LYMPH # 0.8 x10^3/uL (1.0-4.8); LYMPH % 10 % (24-48); MEAN CORPUSCULAR HEMOGLOBIN 26 pg (25-35); MEAN CORPUSCULAR HGB CONC 33 g/dL (31-37); MEAN CORPUSCULAR VOLUME 78 fL (79-100); MONO % 8 % (0-9); NEUT % 81 % (31-73); PLATELET COUNT 275 x10^3/uL (140-400); RED BLOOD COUNT 4.12 x10^6/uL (3.50-5.40); RED CELL DISTRIBUTION WIDTH 16.3 % (11.5-14.5); WHITE BLOOD COUNT 7.8 x10^3/uL (4.0-11.0)
[2016-09-24 11:44] LABS: CALCIUM 8.6 mg/dL (8.5-10.1); CREATININE 0.8 mg/dL (0.6-1.0); GFR 70.3; POTASSIUM 3.5 mmol/L (3.5-5.1)
--- NOTE | 2016-09-24 12:55 | PDOC3 ---
Discharge Summary [facility] Date of Admission: Sep 20, 2016 Discharge Date: Sep 24, 2016 Admitting Diagnosis 1. symptomatic hyponatremia, 2/2 low salt po intake likely 2. hypokalemia 3. bronchitis 4. copd 5. urination difficulty 6. htn 7. chronic constipation 8, normacytic anemia 2/2 chronic dz 9.; mild malnutrition 10 .urinary retention 11. mild dementia 12. severe hearing loss Problems: CONSULTS pulm renal Brief Hospital Course 75yo F, with htn, copd, h/o hyponatremia, hypokalemia, was sent from [facility] for weakness. both pt and her PCP could not give me a good history. basically, Pt has been coughing for 1-2 weeks, but denies gets worse for her baseline with copd, denies fever, chills, but admits has some clear sputum. was treated with levaquin x5ds, no improvement. She also has difficulty to urinate, no incontinence. She feels weak, but said using salt for cooking, denies dehydration. she cannot tell me what is the etiology of previous hyponatremia and hypokalemia which is found in the clinic test and PCP didnot tell me that before transfer. Na was found 118 in the clinic, improved to normal with 3 % saline and NS. cough is also better with levaquin, breathing treatment. CT lung not significant except COPD. pt has urinary retention, keep patel with dc. dc home with valsartan, no hctz, patel, flomax, fu with uro pt has mild dementia, but refused to go to snf. dc time 35min. General: Alert, Oriented X3, No acute distress Heart: Regular rate, Normal S1, No murmurs Lungs: Other (decrease bs) Abdomen: Normal bowel sounds, Soft Extremities: No clubbing, No cyanosis, No edema, Normal pulses Skin: No rashes, No breakdown Patient History: Alcoholism in father FH: Alzheimers disease 32 MOTHER FH: breast cancer G8 SISTER G8 SISTER Family history: Angina (situation) Family history: Asthma 19 CHILD G8 SISTER Family history: Breast disease (situation) G8 SISTER 32 MOTHER Family history: Gallbladder disease (situation) G8 SISTER 32 MOTHER Family history: Hypertension (situation) G8 SISTER Family history: Obesity (situation) 33 FATHER No Family History of: Family history: Autoimmune disease (situation) Family history: Blood disorder (situation) Family history: Cardiomyopathy (situation) Family history: Cardiovascular disease (situation) Family history: Crohn's disease (situation) Family history: Depression (situation) Family history: Diabetes mellitus (situation) Family history: Epilepsy (situation) Family history: Gastrointestinal disease (situation) Family history: Hemophilia (situation) Family history: Sickle cell trait (situation) Family history: Suicide (situation) Family history: neoplasm - trachea/bronchus/lung (situation) Family history: neoplasm - urinary organ (situation) Family history: neoplasm of skin (situation) Malignant hyperthermia Sleep apnea Problems: Disposition HH CONDITION AT DISCHARGE: Improved Diet REGULAR Scheduled Albuterol Sulfate (Albuterol Sulfate Neb Soln), 2.5 MG NEB Q6HRS, (Reported) Aloe Vera (Aloe Vera), 25 MG PO BID, (Reported) Azelastine Hcl (Azelastine Hcl), 2 SPRAY NS BID, (Reported) Celecoxib (Celebrex), 200 MG PO BID, (Reported) Cetirizine Hcl (Cetirizine Hcl), 1 TAB PO DAILY, (Reported) Clonazepam (Clonazepam), 1 TAB PO DAILY, (Reported) Cyclobenzaprine Hcl (Cyclobenzaprine Hcl), 1 TAB PO TID, (Reported) Fentanyl (FENTANYL 100mcg/hr), 1 PATCH TD Q72H, (Reported) Fluticasone/Salmeterol (Advair 500-50 Diskus), 1 PUFF IH BID, (Reported) Green Tea [place] Extract (Green Tea), 1 EACH PO BID, (Reported) Guaifenesin (Mucinex), 600 MG PO BID Ipratropium/Albuterol Sulfate (Combivent Respimat Inhal), 2 INH IH QID, ( Reported) Levofloxacin (Levaquin), 250 MG PO QHS Lubiprostone (Amitiza), 1 CAP PO BID, (Reported) Mometasone Furoate (Nasonex), 2 SPRAYS NS DAILY, (Reported) Multivitamin (Multivitamins), 1 TAB PO DAILY, (Reported) Olanzapine (Olanzapine), 5 MG PO DAILY, (Reported) Omeprazole (Omeprazole), 1 CAP PO DAILY, (Reported) Oxycodone Hcl (Oxycontin), 30 MG PO BID, (Reported) Oxycodone Hcl/Acetaminophen (Oxycodone-Acetaminophen 10-325), 1 TAB PO Q4HRS, ( Reported) Prednisone (Prednisone), 5 MG PO DAILY, (Reported) Raloxifene Hcl (Evista), 60 MG PO DAILY, (Reported) Roflumilast (Daliresp), 1 TAB PO DAILY, (Reported) Tamsulosin Hcl (Flomax), 0.4 MG PO DAILY Tiotropium [place] (Spiriva), 1 CAP IH DAILY, (Reported) Valsartan (Valsartan), 160 MG PO DAILY Miscellaneous Medications Ascorbic Acid (Vitamin C), 1,000 MG PO, (Reported) Calcium Carbonate (Calcium), 1,200 MG PO, (Reported) Cholecalciferol (Vitamin D3) (Vitamin D), 1,000 UNIT PO, (Reported) Gluc Chung/Chondro Chung A/Vit C/Mn (Glucosamine Chondroitin Tab), 1 EACH PO, ( Reported) Sennosides (Vegetable Laxative), 8.6 MG PO, (Reported) Vitamin A (Vitamin A), 8,000 UNIT PO, (Reported) Vitamin B Complex & Vit C No.4 (Super B Complex), 150 MG PO, (Reported) Vitamin E Mixed (Vitamin E), 400 UNIT PO, (Reported) [potassium bicarb], 600 INTLU PO, (Reported) Discontinued Medications Lecithin (Lecithin), 400 MG PO DAILY, (Reported) Lysine (Lysine), 500 MG PO, (Reported) Ondansetron Hcl (Zofran), 1 TAB PO Q8HRS, (Reported) Red Yeast Rice (Red Yeast Rice), 600 MG PO, (Reported) Valsartan/Hydrochlorothiazide (Diovan Hct 160-12.5 Mg Tab), 1 EACH PO, (Reported ) Follow Up uro in 1 week ROMANA ORO MD Sep 24, 2016 12:55
[2016-09-24 15:00] VITALS: BP 116/50
[2016-09-24] MEDS: IV NORMAL SALINE 1000ML BAG 1,000 ML IV SCH (15:24)
[2016-09-24] MEDS: ENOXAPARIN 40 MG/0.4 ML SYRINGE. SQ SCH (16:00)
[2016-09-24 19:00] VITALS: BP 187/82
[2016-09-24 23:00] VITALS: BP 150/81
[2016-09-25] MEDS: oxyCODONE/APAP 10/325 1 TAB TABLET PO SCH ×3 (04:00→08:22)
[2016-09-25 07:00] VITALS: BP 185/100
[2016-09-25] MEDS: BUDESONIDE 0.5 MG/2 ML NEBU. NEB SCH (07:50)
[2016-09-25] MEDS: IPRATRPIUM/ALBUTEROL 0.5/2.5MG 3 ML NEBU. NEB SCH (07:50)
[2016-09-25] MEDS: IV NORMAL SALINE 1000ML BAG 1,000 ML IV SCH (08:04)
[2016-09-25] MEDS: OLANZapine 2.5 MG TABLET PO SCH (08:22)
[2016-09-25] MEDS: clonazePAM 0.5 MG TABLET PO SCH (08:22)
[2016-09-25] MEDS: SENNOSIDES 8.6 MG TABLET PO SCH (08:22)
[2016-09-25] MEDS: TAMSULOSIN 0.4 MG CAP.ER.24H. PO SCH (08:22)
[2016-09-25] MEDS: CETIRIZINE HCL 10 MG TABLET. PO SCH (08:22)
[2016-09-25] MEDS: PANTOPRAZOLE 40 MG TABLET.DR. PO SCH (08:22)
[2016-09-25] MEDS: ROFLUMILAST 500 MCG TABLET. PO SCH (08:22)
[2016-09-25 08:23] VITALS: BP 150/81
[2016-09-25] MEDS: CYCLOBENZAPRINE 10 MG TABLET. PO SCH (08:23)
[2016-09-25] MEDS: LISINOPRIL 20 MG TABLET PO SCH (08:23)
--- NOTE | 2016-09-25 09:25 | PDOC ---
PULMONARY PROGRESS NOTES Subjective cough much improved Vitals Vital Signs Date Time Temp Pulse Resp B/P (MAP) Pulse Ox O2 Delivery O2 Flow Rate FiO2 09/25/16 08:26 Room Air 09/25/16 08:23 80 150/81 09/25/16 07:50 94 09/25/16 07:00 98.8 18 98.8 General: Alert, No acute distress Lungs: Other (decrease bs) Cardiovascular: S1, S2 Abdomen: Soft, Other Neuro Exam: Alert Extremities: No Edema Skin: Warm Labs Laboratory Tests Test 09/24/16 10:35 White Blood Count 7.8 x10^3/uL (4.0-11.0) Red Blood Count 4.12 x10^6/uL (3.50-5.40) Hemoglobin 10.7 g/dL (12.0-15.5) Hematocrit 32.2 % (36.0-47.0) Mean Corpuscular Volume 78 fL (79-100) Mean Corpuscular Hemoglobin 26 pg (25-35) Mean Corpuscular Hemoglobin Concent 33 g/dL (31-37) Red Cell Distribution Width 16.3 % (11.5-14.5) Platelet Count 275 x10^3/uL (140-400) Neutrophils (%) (Auto) 81 % (31-73) Lymphocytes (%) (Auto) 10 % (24-48) Monocytes (%) (Auto) 8 % (0-9) Eosinophils (%) (Auto) 1 % (0-3) Basophils (%) (Auto) 1 % (0-3) Neutrophils # (Auto) 6.3 x10^3uL (1.8-7.7) Lymphocytes # (Auto) 0.8 x10^3/uL (1.0-4.8) Monocytes # (Auto) 0.6 x10^3/uL (0.0-1.1) Eosinophils # (Auto) 0.1 x10^3/uL (0.0-0.7) Basophils # (Auto) 0.0 x10^3/uL (0.0-0.2) Sodium Level 136 mmol/L (136-145) Potassium Level 3.5 mmol/L (3.5-5.1) Chloride Level 99 mmol/L (98-107) Carbon Dioxide Level 28 mmol/L (21-32) Anion Gap 9 (6-14) Blood Urea Nitrogen 9 mg/dL (7-20) Creatinine 0.8 mg/dL (0.6-1.0) Estimated GFR (Cockcroft-Gault) 70.3 Glucose Level 94 mg/dL (70-99) Calcium Level 8.6 mg/dL (8.5-10.1) Laboratory Tests Test 09/24/16 10:35 White Blood Count 7.8 x10^3/uL (4.0-11.0) Red Blood Count 4.12 x10^6/uL (3.50-5.40) Hemoglobin 10.7 g/dL (12.0-15.5) Hematocrit 32.2 % (36.0-47.0) Mean Corpuscular Volume 78 fL (79-100) Mean Corpuscular Hemoglobin 26 pg (25-35) Mean Corpuscular Hemoglobin Concent 33 g/dL (31-37) Red Cell Distribution Width 16.3 % (11.5-14.5) Platelet Count 275 x10^3/uL (140-400) Neutrophils (%) (Auto) 81 % (31-73) Lymphocytes (%) (Auto) 10 % (24-48) Monocytes (%) (Auto) 8 % (0-9) Eosinophils (%) (Auto) 1 % (0-3) Basophils (%) (Auto) 1 % (0-3) Neutrophils # (Auto) 6.3 x10^3uL (1.8-7.7) Lymphocytes # (Auto) 0.8 x10^3/uL (1.0-4.8) Monocytes # (Auto) 0.6 x10^3/uL (0.0-1.1) Eosinophils # (Auto) 0.1 x10^3/uL (0.0-0.7) Basophils # (Auto) 0.0 x10^3/uL (0.0-0.2) Sodium Level 136 mmol/L (136-145) Potassium Level 3.5 mmol/L (3.5-5.1) Chloride Level 99 mmol/L (98-107) Carbon Dioxide Level 28 mmol/L (21-32) Anion Gap 9 (6-14) Blood Urea Nitrogen 9 mg/dL (7-20) Creatinine 0.8 mg/dL (0.6-1.0) Estimated GFR (Cockcroft-Gault) 70.3 Glucose Level 94 mg/dL (70-99) Calcium Level 8.6 mg/dL (8.5-10.1) Medications Active Scripts Medications Dose Route/Sig Max Daily Dose Days Date Category Albuterol Sulfate Neb Soln (Albuterol Sulfate) 2.5 Mg/3 Ml Vial.neb 2.5 Mg NEB Q6HRS 09/20/16 Reported Combivent Respimat Inhal (Ipratropium/Albuterol Sulfate) 4 Gm Aer.w.adap 2 Inh IH QID 09/20/16 Reported Glucosamine Chondroitin Tab (Gluc Chung/Chondro Chung A/Vit C/Mn) 1 Each Tablet 1 Each PO 09/20/16 Reported Aloe Vera 25 Mg Capsule 25 Mg PO BID 09/20/16 Reported [potassium bicarb] 600 Intlu PO 09/20/16 Reported Azelastine Hcl 137 Mcg/0.137 Ml [place].pump 2 [place] NS BID 09/20/16 Reported Cetirizine Hcl 10 Mg Tablet 1 Tab PO DAILY 09/20/16 Reported Omeprazole 40 Mg Capsule.dr 1 Cap PO DAILY 09/20/16 Reported Celebrex (Celecoxib) 200 Mg Capsule 200 Mg PO BID 30 09/20/16 Reported Oxycontin (Oxycodone HCl) 30 Mg Tab.er.12h 30 Mg PO BID 02/04/16 Reported Multivitamins (Multivitamin) 1 Each Tablet 1 Tab PO DAILY 05/29/15 Reported FENTANYL 100mcg/hr (Fentanyl) 1 Each Patch.td72 1 Patch TD Q72H 05/29/15 Reported Daliresp (Roflumilast) 500 Mcg Tablet 1 Tab PO DAILY 11/20/14 Reported Amitiza (Lubiprostone) 24 Mcg Capsule 1 Cap PO BID 11/20/14 Reported Oxycodone-Acetaminophen 10-325 (Oxycodone Hcl/Acetaminophen) 1 Each Tablet 1 Tab PO Q4HRS 11/20/14 Reported Cyclobenzaprine Hcl 10 Mg Tablet 1 Tab PO TID 11/20/14 Reported Nasonex (Mometasone Furoate) 17 Gm [place].pump 2 Sprays NS DAILY 11/20/14 Reported Spiriva (Tiotropium [place]) 18 Mcg Cap.w.dev 1 Cap IH DAILY 11/20/14 Reported Advair 500-50 Diskus (Fluticasone/Salmeterol) 1 Each Disk.w.dev 1 Puff IH BID 11/20/14 Reported Clonazepam 0.5 Mg Tablet 1 Tab PO DAILY 11/20/14 Reported Olanzapine 2.5 Mg Tablet 5 Mg PO DAILY 11/20/14 Reported Prednisone 2.5 Mg Tablet 5 Mg PO DAILY 10/23/14 Reported Super B Complex (Vitamin B Complex & Vit C No.4) 150 Mg Tablet 150 Mg PO 07/19/13 Reported Green Tea (Green Tea [place] Extract) 1 Each Capsule 1 Each PO BID 07/19/13 Reported Vitamin A 8,000 Unit Capsule 8,000 Unit PO 07/19/13 Reported Vitamin C (Ascorbic Acid) 1,000 Mg Tablet 1,000 Mg PO 07/19/13 Reported Vitamin E (Vitamin E Mixed) 400 Unit Capsule 400 Unit PO 07/19/13 Reported Vitamin D (Cholecalciferol (Vitamin D3)) 1,000 Unit Capsule 1,000 Unit PO 07/19/13 Reported Calcium (Calcium Carbonate) 600 Mg Tablet 1,200 Mg PO 07/19/13 Reported Vegetable Laxative (Sennosides) 8.6 Mg Tablet 8.6 Mg PO 07/19/13 Reported Evista (Raloxifene Hcl) 60 Mg Tablet 60 Mg PO DAILY 07/19/13 Reported Diovan Hct 160-12.5 Mg Tab (Valsartan/Hydrochlorothiazide) 1 Each Tablet 1 Each PO 07/19/13 Reported Impression . 1. 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 no intervention 2. COPD 3. cough due to acute bronchitis 4. Acute bronchitis 5. chronic steroid dependence Plan . 1. ct chest with mild non-specific fibrosis/ no intervention 2. Nebs 3. cough suppressants 4. antibiotics 5. clinically better 6. steroids taper 7. ok with dc to [facility] V[facility] MD Sep 25, 2016 09:25
--- NOTE | 2016-09-25 13:18 | PDOC3 ---
Discharge Summary [facility] Date of Admission: Sep 20, 2016 Discharge Date: Sep 25, 2016 Admitting Diagnosis 1. symptomatic hyponatremia, 2/2 low salt po intake likely 2. hypokalemia 3. bronchitis 4. copd 5. urination difficulty 6. htn 7. chronic constipation 8, normacytic anemia 2/2 chronic dz 9.; mild malnutrition 10 .urinary retention 11. mild dementia 12. severe hearing loss Problems: CONSULTS Problems: CONSULTS pulm renal Brief Hospital Course Brief Hospital Course 75yo F, with htn, copd, h/o hyponatremia, hypokalemia, was sent from [facility] for weakness. both pt and her PCP could not give me a good history. basically, Pt has been coughing for 1-2 weeks, but denies gets worse for her baseline with copd, denies fever, chills, but admits has some clear sputum. was treated with levaquin x5ds, no improvement. She also has difficulty to urinate, no incontinence. She feels weak, but said using salt for cooking, denies dehydration. she cannot tell me what is the etiology of previous hyponatremia and hypokalemia which is found in the clinic test and PCP didnot tell me that before transfer. Na was found 118 in the clinic, improved to normal with 3 % saline and NS. cough is also better with levaquin, breathing treatment. CT lung not significant except COPD. pt has urinary retention, keep patel with dc. dc home with valsartan, no hctz, patel, flomax, fu with uro pt has mild dementia likely, although denies and said it is 2/2 fenanyl patch which she actually dosenot take at home, dc it. dc time 35min. General: Alert, Oriented X3, No acute distress Heart: Regular rate, Normal S1, No murmurs Lungs: Other (decrease bs) Abdomen: Normal bowel sounds, Soft Extremities: No clubbing, No cyanosis, No edema, Normal pulses Skin: No rashes, No breakdown Patient History: Alcoholism in father FH: Alzheimers disease 32 MOTHER FH: breast cancer G8 SISTER G8 SISTER Family history: Angina (situation) Family history: Asthma 19 CHILD G8 SISTER Family history: Breast disease (situation) G8 SISTER 32 MOTHER Family history: Gallbladder disease (situation) G8 SISTER 32 MOTHER Family history: Hypertension (situation) G8 SISTER Family history: Obesity (situation) 33 FATHER No Family History of: Family history: Autoimmune disease (situation) Family history: Blood disorder (situation) Family history: Cardiomyopathy (situation) Family history: Cardiovascular disease (situation) Family history: Crohn's disease (situation) Family history: Depression (situation) Family history: Diabetes mellitus (situation) Family history: Epilepsy (situation) Family history: Gastrointestinal disease (situation) Family history: Hemophilia (situation) Family history: Sickle cell trait (situation) Family history: Suicide (situation) Family history: neoplasm - trachea/bronchus/lung (situation) Family history: neoplasm - urinary organ (situation) Family history: neoplasm of skin (situation) Malignant hyperthermia Sleep apnea Problems: Disposition rehab CONDITION AT DISCHARGE: Improved Diet regular Scheduled Albuterol Sulfate (Albuterol Sulfate Neb Soln), 2.5 MG NEB Q6HRS, (Reported) Aloe Vera (Aloe Vera), 25 MG PO BID, (Reported) Azelastine Hcl (Azelastine Hcl), 2 SPRAY NS BID, (Reported) Celecoxib (Celebrex), 200 MG PO BID, (Reported) Cetirizine Hcl (Cetirizine Hcl), 1 TAB PO DAILY, (Reported) Cyclobenzaprine Hcl (Cyclobenzaprine Hcl), 1 TAB PO TID, (Reported) Fluticasone/Salmeterol (Advair 500-50 Diskus), 1 PUFF IH BID, (Reported) Green Tea [place] Extract (Green Tea), 1 EACH PO BID, (Reported) Guaifenesin (Mucinex), 600 MG PO BID Ipratropium/Albuterol Sulfate (Combivent Respimat Inhal), 2 INH IH QID, ( Reported) Levofloxacin (Levaquin), 250 MG PO QHS Lubiprostone (Amitiza), 1 CAP PO BID, (Reported) Mometasone Furoate (Nasonex), 2 SPRAYS NS DAILY, (Reported) Multivitamin (Multivitamins), 1 TAB PO DAILY, (Reported) Omeprazole (Omeprazole), 1 CAP PO DAILY, (Reported) Oxycodone Hcl (Oxycontin), 30 MG PO BID, (Reported) Oxycodone Hcl/Acetaminophen (Oxycodone-Acetaminophen 10-325), 1 TAB PO Q4HRS, ( Reported) Prednisone (Prednisone), 5 MG PO DAILY, (Reported) Raloxifene Hcl (Evista), 60 MG PO DAILY, (Reported) Roflumilast (Daliresp), 1 TAB PO DAILY, (Reported) Tamsulosin Hcl (Flomax), 0.4 MG PO DAILY Tiotropium [place] (Spiriva), 1 CAP IH DAILY, (Reported) Valsartan (Valsartan), 160 MG PO DAILY Miscellaneous Medications Ascorbic Acid (Vitamin C), 1,000 MG PO, (Reported) Calcium Carbonate (Calcium), 1,200 MG PO, (Reported) Cholecalciferol (Vitamin D3) (Vitamin D), 1,000 UNIT PO, (Reported) Gluc Chung/Chondro Chung A/Vit C/Mn (Glucosamine Chondroitin Tab), 1 EACH PO, ( Reported) Sennosides (Vegetable Laxative), 8.6 MG PO, (Reported) Vitamin A (Vitamin A), 8,000 UNIT PO, (Reported) Vitamin B Complex & Vit C No.4 (Super B Complex), 150 MG PO, (Reported) Vitamin E Mixed (Vitamin E), 400 UNIT PO, (Reported) [potassium bicarb], 600 INTLU PO, (Reported) Discontinued Medications Lecithin (Lecithin), 400 MG PO DAILY, (Reported) Lysine (Lysine), 500 MG PO, (Reported) Ondansetron Hcl (Zofran), 1 TAB PO Q8HRS, (Reported) Red Yeast Rice (Red Yeast Rice), 600 MG PO, (Reported) Valsartan/Hydrochlorothiazide (Diovan Hct 160-12.5 Mg Tab), 1 EACH PO, (Reported ) Follow Up uro in 2 weeks ROMANA ORO MD Sep 25, 2016 13:18
== END 2016-09-25 10:45 | DRG 191 ==
LOC: 5 SOUTH 19:33 → 5 NORTH 09-21 14:39
PROVIDERS: ADMIT Internal Medicine; ATTEND Internal Medicine
DX: J44.0 Chronic obstructive pulmonary disease with (acute) lower respiratory infection (principal); E44.1 Mild protein-calorie malnutrition; J45.901 Unspecified asthma with (acute) exacerbation; E87.1 Hypo-osmolality and hyponatremia; J20.9 Acute bronchitis, unspecified; H91.90 Unspecified hearing loss, unspecified ear; I10 Essential (primary) hypertension; E87.6 Hypokalemia; R33.9 Retention of urine, unspecified; D63.8 Anemia in other chronic diseases classified elsewhere; G89.29 Other chronic pain; K57.90 Diverticulosis of intestine, part unspecified, without perforation or abscess without bleeding; M54.9 Dorsalgia, unspecified; K59.09 Other constipation; Z82.0 Family history of epilepsy and other diseases of the nervous system; Z79.52 Long term (current) use of systemic steroids; Z80.3 Family history of malignant neoplasm of breast; Z81.8 Family history of other mental and behavioral disorders; Z82.49 Family history of ischemic heart disease and other diseases of the circulatory system; Z83.3 Family history of diabetes mellitus; Z82.5 Family history of asthma and other chronic lower respiratory diseases; Z87.440 Personal history of urinary (tract) infections; Z87.891 Personal history of nicotine dependence; Z68.24 Body mass index [BMI] 24.0-24.9, adult; Z88.0 Allergy status to penicillin
CPT/HCPCS: 36415; 71010; 71250; 76770; 80048; 80053; 81001; 82436; 82533; 83735; 83880; 83930; 83935; 84133; 84300; 84443; 85027; 87040; 87070; 87205; 93306; 94250; 94640; 94760; J1650; J1956; J3480; J3490; J7030; J7620; 97110; 97116; 97530; 97535

== ENCOUNTER → 2016-12-22 | Outpatient (CLI) | payer MEDICARE, OTHER ==
[~2016-12-22] MED LIST changes: +ALBU2.5V5 NEB; +ALOE25CA PO; +AZEL137S3 NS; +CETI10TA16 PO; +GLUC1TAB33 PO; +GUAI600T47 PO; +IPRA4AER IH; +LEVO250T25 PO; +OLAN2.5T11 PO; -OLAN2.5T5 PO; +POTASSIUM BICARB PO; +TAMS0.4C97 PO; +VALS160T21 PO
== END | disposition home or self-care (01) ==
LOC: PMGWOUND 12:38
PROVIDERS: ATTEND Emergency Medicine Undersea and Hyperbaric Medicine
DX: I87.313 Chronic venous hypertension (idiopathic) with ulcer of bilateral lower extremity (principal); L97.222 Non-pressure chronic ulcer of left calf with fat layer exposed; L97.212 Non-pressure chronic ulcer of right calf with fat layer exposed; I70.203 Unspecified atherosclerosis of native arteries of extremities, bilateral legs; J44.0 Chronic obstructive pulmonary disease with (acute) lower respiratory infection; F32.9 Major depressive disorder, single episode, unspecified; M81.0 Age-related osteoporosis without current pathological fracture; Z87.891 Personal history of nicotine dependence; Z86.73 Personal history of transient ischemic attack (TIA), and cerebral infarction without residual deficits
CPT/HCPCS: 97597; 97598

== ENCOUNTER → 2016-12-29 | Outpatient (CLI) | payer MEDICARE, OTHER | END | disposition home or self-care (01) | LOC: PMGWOUND 12:53 | PROVIDERS: ATTEND Emergency Medicine Undersea and Hyperbaric Medicine | DX: I87.313 Chronic venous hypertension (idiopathic) with ulcer of bilateral lower extremity (principal); L97.222 Non-pressure chronic ulcer of left calf with fat layer exposed; L97.212 Non-pressure chronic ulcer of right calf with fat layer exposed; J44.9 Chronic obstructive pulmonary disease, unspecified; K21.9 Gastro-esophageal reflux disease without esophagitis; F32.9 Major depressive disorder, single episode, unspecified; Z86.73 Personal history of transient ischemic attack (TIA), and cerebral infarction without residual deficits; M81.0 Age-related osteoporosis without current pathological fracture; Z87.891 Personal history of nicotine dependence | CPT/HCPCS: 97597; 97598 ==

== ENCOUNTER → 2017-01-03 | Outpatient (CLI) | payer MEDICARE, OTHER | END | disposition home or self-care (01) | LOC: PMGWOUND 13:27 | PROVIDERS: ATTEND Emergency Medicine Undersea and Hyperbaric Medicine | DX: I87.313 Chronic venous hypertension (idiopathic) with ulcer of bilateral lower extremity (principal); L97.212 Non-pressure chronic ulcer of right calf with fat layer exposed; L97.222 Non-pressure chronic ulcer of left calf with fat layer exposed; J44.9 Chronic obstructive pulmonary disease, unspecified; K21.9 Gastro-esophageal reflux disease without esophagitis; F32.9 Major depressive disorder, single episode, unspecified; J45.909 Unspecified asthma, uncomplicated; Z86.73 Personal history of transient ischemic attack (TIA), and cerebral infarction without residual deficits; M81.0 Age-related osteoporosis without current pathological fracture; Z87.891 Personal history of nicotine dependence | CPT/HCPCS: 97597; 97598 ==

== ENCOUNTER → 2017-01-06 | Outpatient (CLI) | payer MEDICARE, OTHER | END | disposition home or self-care (01) | LOC: PMGWOUND 11:14 | PROVIDERS: ATTEND Preventive Medicine Undersea and Hyperbaric Medicine | DX: I87.313 Chronic venous hypertension (idiopathic) with ulcer of bilateral lower extremity (principal); L97.212 Non-pressure chronic ulcer of right calf with fat layer exposed; L97.222 Non-pressure chronic ulcer of left calf with fat layer exposed; J44.9 Chronic obstructive pulmonary disease, unspecified; K21.9 Gastro-esophageal reflux disease without esophagitis; F32.9 Major depressive disorder, single episode, unspecified; Z86.73 Personal history of transient ischemic attack (TIA), and cerebral infarction without residual deficits; M81.0 Age-related osteoporosis without current pathological fracture; Z87.891 Personal history of nicotine dependence | CPT/HCPCS: 29581; 97597; 97598 ==

== ENCOUNTER → 2017-01-09 | Outpatient (CLI) | payer MEDICARE, OTHER | END | disposition home or self-care (01) | LOC: PMGWOUND 11:59 | PROVIDERS: ATTEND Emergency Medicine Undersea and Hyperbaric Medicine | DX: I87.313 Chronic venous hypertension (idiopathic) with ulcer of bilateral lower extremity (principal); L97.212 Non-pressure chronic ulcer of right calf with fat layer exposed; L97.222 Non-pressure chronic ulcer of left calf with fat layer exposed; J44.9 Chronic obstructive pulmonary disease, unspecified; K21.9 Gastro-esophageal reflux disease without esophagitis; F32.9 Major depressive disorder, single episode, unspecified; Z86.73 Personal history of transient ischemic attack (TIA), and cerebral infarction without residual deficits; M81.0 Age-related osteoporosis without current pathological fracture; Z87.891 Personal history of nicotine dependence | CPT/HCPCS: 29581; 97597; 97598 ==

== ENCOUNTER → 2017-01-12 | Outpatient (CLI) | payer MEDICARE, OTHER | END | disposition home or self-care (01) | LOC: PMGWOUND 12:37 | PROVIDERS: ATTEND Emergency Medicine Undersea and Hyperbaric Medicine | DX: I87.313 Chronic venous hypertension (idiopathic) with ulcer of bilateral lower extremity (principal); L97.222 Non-pressure chronic ulcer of left calf with fat layer exposed; L97.212 Non-pressure chronic ulcer of right calf with fat layer exposed; M81.0 Age-related osteoporosis without current pathological fracture; J44.0 Chronic obstructive pulmonary disease with (acute) lower respiratory infection; K21.9 Gastro-esophageal reflux disease without esophagitis; F32.9 Major depressive disorder, single episode, unspecified; Z87.891 Personal history of nicotine dependence; Z86.73 Personal history of transient ischemic attack (TIA), and cerebral infarction without residual deficits | CPT/HCPCS: 29581 ==

== ENCOUNTER → 2017-01-16 | Outpatient (CLI) | payer MEDICARE, OTHER | END | disposition home or self-care (01) | LOC: PMGWOUND 13:00 | PROVIDERS: ATTEND Emergency Medicine Undersea and Hyperbaric Medicine | DX: I87.313 Chronic venous hypertension (idiopathic) with ulcer of bilateral lower extremity (principal); L97.222 Non-pressure chronic ulcer of left calf with fat layer exposed; L97.212 Non-pressure chronic ulcer of right calf with fat layer exposed; M81.0 Age-related osteoporosis without current pathological fracture; J44.0 Chronic obstructive pulmonary disease with (acute) lower respiratory infection; K21.9 Gastro-esophageal reflux disease without esophagitis; F32.9 Major depressive disorder, single episode, unspecified; Z87.891 Personal history of nicotine dependence; Z86.73 Personal history of transient ischemic attack (TIA), and cerebral infarction without residual deficits | CPT/HCPCS: 29581 ==

== ENCOUNTER → 2017-02-03 | Outpatient (CLI) | payer MEDICARE, OTHER ==
--- NOTE | 2017-02-03 15:47 | RAD ---
Bilateral lower extremity venous duplex ultrasound Evaluation of bilateral lower extremity venous reflux 02/03/2017 Indication: Bilateral lower extremity pain Comparison study: None Discussion: Sonographic evaluation of the deep veins of the bilateral lower extremities was performed. This includes grayscale imaging and color duplex imaging with spectral analysis. The deep veins of the bilateral lower extremities are patent without evidence of thrombosis. These interrogated veins are compressible and demonstrate augmentable blood flow on color Doppler imaging. Evaluation of superficial venous reflux was also performed. The bilateral great saphenous veins are patent measuring 0.74 cm at the junction with the common femoral vein on the right, and 0.51 cm at the junction of the common femoral vein on the left. No evidence of no evidence of greater saphenous or lesser saphenous venous reflux was identified during augmentation. Impression: 1. No evidence of deep venous thrombosis involving either lower extremity. 2. No ultrasound evidence of greater lesser saphenous vein reflux
== END | disposition home or self-care (01) ==
LOC: US 14:18
PROVIDERS: ATTEND Preventive Medicine Undersea and Hyperbaric Medicine
DX: I87.313 Chronic venous hypertension (idiopathic) with ulcer of bilateral lower extremity (principal); L97.222 Non-pressure chronic ulcer of left calf with fat layer exposed; L97.212 Non-pressure chronic ulcer of right calf with fat layer exposed
CPT/HCPCS: 93970

== ENCOUNTER → 2017-02-06 | Outpatient (CLI) | payer MEDICARE, OTHER | END | disposition home or self-care (01) | LOC: PMGWOUND 13:03 | PROVIDERS: ATTEND Emergency Medicine Undersea and Hyperbaric Medicine | DX: I87.313 Chronic venous hypertension (idiopathic) with ulcer of bilateral lower extremity (principal); L97.222 Non-pressure chronic ulcer of left calf with fat layer exposed; L97.212 Non-pressure chronic ulcer of right calf with fat layer exposed; J44.9 Chronic obstructive pulmonary disease, unspecified; K21.9 Gastro-esophageal reflux disease without esophagitis; F32.9 Major depressive disorder, single episode, unspecified; Z87.891 Personal history of nicotine dependence | CPT/HCPCS: 29581 ==

== ENCOUNTER → 2017-02-13 | Outpatient (CLI) | payer MEDICARE, OTHER | END | disposition home or self-care (01) | LOC: PMGWOUND 13:12 | PROVIDERS: ATTEND Emergency Medicine Undersea and Hyperbaric Medicine | DX: I87.313 Chronic venous hypertension (idiopathic) with ulcer of bilateral lower extremity (principal); L97.222 Non-pressure chronic ulcer of left calf with fat layer exposed; L97.212 Non-pressure chronic ulcer of right calf with fat layer exposed; J44.9 Chronic obstructive pulmonary disease, unspecified; K21.9 Gastro-esophageal reflux disease without esophagitis; F32.9 Major depressive disorder, single episode, unspecified; Z86.73 Personal history of transient ischemic attack (TIA), and cerebral infarction without residual deficits; J45.909 Unspecified asthma, uncomplicated; Z87.891 Personal history of nicotine dependence | CPT/HCPCS: 17250; 29581 ==

== ENCOUNTER → 2017-02-20 | Outpatient (CLI) | payer MEDICARE, OTHER | END | disposition home or self-care (01) | LOC: PMGWOUND 13:15 | PROVIDERS: ATTEND Emergency Medicine Undersea and Hyperbaric Medicine | DX: I87.313 Chronic venous hypertension (idiopathic) with ulcer of bilateral lower extremity (principal); L97.212 Non-pressure chronic ulcer of right calf with fat layer exposed; L97.222 Non-pressure chronic ulcer of left calf with fat layer exposed; J44.9 Chronic obstructive pulmonary disease, unspecified; K21.9 Gastro-esophageal reflux disease without esophagitis; F32.9 Major depressive disorder, single episode, unspecified; M81.0 Age-related osteoporosis without current pathological fracture; Z87.891 Personal history of nicotine dependence; Z86.73 Personal history of transient ischemic attack (TIA), and cerebral infarction without residual deficits | CPT/HCPCS: 99215 ==

== ENCOUNTER → 2017-03-06 | Outpatient (CLI) | payer MEDICARE, OTHER | END | disposition home or self-care (01) | LOC: PMGWOUND 12:54 | PROVIDERS: ATTEND Emergency Medicine Undersea and Hyperbaric Medicine | DX: I87.313 Chronic venous hypertension (idiopathic) with ulcer of bilateral lower extremity (principal); L97.222 Non-pressure chronic ulcer of left calf with fat layer exposed; L97.212 Non-pressure chronic ulcer of right calf with fat layer exposed; J44.9 Chronic obstructive pulmonary disease, unspecified; M81.0 Age-related osteoporosis without current pathological fracture; K21.9 Gastro-esophageal reflux disease without esophagitis; F32.9 Major depressive disorder, single episode, unspecified; G89.29 Other chronic pain; M54.9 Dorsalgia, unspecified; Z87.891 Personal history of nicotine dependence; Z86.73 Personal history of transient ischemic attack (TIA), and cerebral infarction without residual deficits; Z90.49 Acquired absence of other specified parts of digestive tract | CPT/HCPCS: 99214 ==

== ENCOUNTER → 2017-03-21 | Outpatient (CLI) | payer MEDICARE, OTHER | END | disposition home or self-care (01) | LOC: PMGWOUND 13:30 | PROVIDERS: ATTEND Emergency Medicine Undersea and Hyperbaric Medicine | DX: I87.313 Chronic venous hypertension (idiopathic) with ulcer of bilateral lower extremity (principal); L97.222 Non-pressure chronic ulcer of left calf with fat layer exposed; L97.212 Non-pressure chronic ulcer of right calf with fat layer exposed; J44.0 Chronic obstructive pulmonary disease with (acute) lower respiratory infection; M81.0 Age-related osteoporosis without current pathological fracture; K21.9 Gastro-esophageal reflux disease without esophagitis; F32.9 Major depressive disorder, single episode, unspecified; G89.29 Other chronic pain; M54.9 Dorsalgia, unspecified; Z87.891 Personal history of nicotine dependence; Z86.73 Personal history of transient ischemic attack (TIA), and cerebral infarction without residual deficits | CPT/HCPCS: 99214 ==

== ENCOUNTER → 2017-04-03 | Outpatient (CLI) | payer MEDICARE, OTHER | END | disposition home or self-care (01) | LOC: PMGWOUND 10:50 | DX: I87.313 Chronic venous hypertension (idiopathic) with ulcer of bilateral lower extremity (principal); L97.222 Non-pressure chronic ulcer of left calf with fat layer exposed; L97.212 Non-pressure chronic ulcer of right calf with fat layer exposed; J44.0 Chronic obstructive pulmonary disease with (acute) lower respiratory infection; M81.0 Age-related osteoporosis without current pathological fracture; K21.9 Gastro-esophageal reflux disease without esophagitis; F32.9 Major depressive disorder, single episode, unspecified; G89.29 Other chronic pain; M54.9 Dorsalgia, unspecified; Z87.891 Personal history of nicotine dependence; Z86.73 Personal history of transient ischemic attack (TIA), and cerebral infarction without residual deficits | CPT/HCPCS: 99214 ==

== ENCOUNTER → 2017-04-24 | Outpatient (CLI) | payer MEDICARE, OTHER | END | disposition home or self-care (01) | LOC: PMGWOUND 12:37 | DX: I87.313 Chronic venous hypertension (idiopathic) with ulcer of bilateral lower extremity (principal); L97.222 Non-pressure chronic ulcer of left calf with fat layer exposed; L97.212 Non-pressure chronic ulcer of right calf with fat layer exposed; J44.0 Chronic obstructive pulmonary disease with (acute) lower respiratory infection; M81.0 Age-related osteoporosis without current pathological fracture; K21.9 Gastro-esophageal reflux disease without esophagitis; F32.9 Major depressive disorder, single episode, unspecified; G89.29 Other chronic pain; M54.9 Dorsalgia, unspecified; Z87.891 Personal history of nicotine dependence; Z86.73 Personal history of transient ischemic attack (TIA), and cerebral infarction without residual deficits | CPT/HCPCS: 99214 ==

== ENCOUNTER → 2017-05-23 | Outpatient (CLI) | payer MEDICARE, OTHER | END | disposition home or self-care (01) | LOC: PMGWOUND 12:35 | DX: I87.312 Chronic venous hypertension (idiopathic) with ulcer of left lower extremity (principal); L97.222 Non-pressure chronic ulcer of left calf with fat layer exposed; J44.0 Chronic obstructive pulmonary disease with (acute) lower respiratory infection; M81.0 Age-related osteoporosis without current pathological fracture; K21.9 Gastro-esophageal reflux disease without esophagitis; F32.9 Major depressive disorder, single episode, unspecified; G89.29 Other chronic pain; M54.9 Dorsalgia, unspecified; Z86.73 Personal history of transient ischemic attack (TIA), and cerebral infarction without residual deficits; Z87.891 Personal history of nicotine dependence | CPT/HCPCS: 99214 ==

== ENCOUNTER → 2017-06-20 | Outpatient (CLI) | payer MEDICARE, OTHER | END | disposition home or self-care (01) | LOC: PMGWOUND 12:38 | DX: I87.312 Chronic venous hypertension (idiopathic) with ulcer of left lower extremity (principal); L97.222 Non-pressure chronic ulcer of left calf with fat layer exposed; J44.0 Chronic obstructive pulmonary disease with (acute) lower respiratory infection; M81.0 Age-related osteoporosis without current pathological fracture; K21.9 Gastro-esophageal reflux disease without esophagitis; F32.9 Major depressive disorder, single episode, unspecified; G89.29 Other chronic pain; M54.9 Dorsalgia, unspecified; Z86.73 Personal history of transient ischemic attack (TIA), and cerebral infarction without residual deficits; Z87.891 Personal history of nicotine dependence | CPT/HCPCS: 99212 ==